=== PATIENT | male | born 1940 | race Caucasian/White ===

== ENCOUNTER 2017-08-16 20:45 | Inpatient (IN) | payer MEDICARE, BC ==
[2017-08-16] MEDS ORDERED: Carvedilol 6.25 MG Tab PO ONE (21:36)
[2017-08-16] MEDS ORDERED: cloNIDine 0.1 MG Tab PO ONE (21:36)
[2017-08-16] MEDS ORDERED: Carvedilol 3.125 MG Tab PO ONE (21:37)
[2017-08-16] MEDS ORDERED: LORazepam 1 MG Tab PO ONE (21:38)
[2017-08-16 22:05] LABS: CHLORIDE,CL 103 mmol/L (98-107); SODIUM,NA 140 mmol/L (136-145)
--- NOTE | 2017-08-16 23:30 | EDM.PDOC ---
ED HPI GENERAL MEDICAL PROBLEM - General Chief Complaint: General Stated Complaint: CP Time Seen by Provider: 08/16/17 21:18 Source of Information: Reports: Family, Other ([facility] staff) History Limitations: Reports: Altered Mental Status - History of Present Illness INITIAL COMMENTS - FREE TEXT/NARRATIVE: [facility] patient transferred to our ER by EMS for complaint of chest pain. Pain resolved by the time he arrived to ER. Noted to have low grade temp upon arrival. Patient had been complaining of discomfort around sternum. Modalities of treatment tried by [facility] prior to transfer included Nitrox3, Tylenol, and an antacid. EMS thinks that they also gave ASA. While in ambulance , EMS administered Nitro spray. Patient has dementia and overall is unreliable for history. also in ER. He only complains of his nose hurting, this is chronic according to his . She says that his physician feels it is due to neuropathy. She has not noticed any other acute changes with her . - Related Data Allergies Allergy/AdvReac Type Severity Reaction Status Date / Time Pzdplpb-Dvh-Dwh Reductase Allergy Muscle Verified 08/16/17 21:10 Inhibitor Aches Home Meds: Home Meds Benazepril [Lotensin] 20 mg PO BID 06/11/14 [History] Fish Oil/DHA/EPA [Fish Oil 1,200 MG] 1 tab PO DAILY 06/11/14 [History] Ibuprofen 200 mg PO DAILY PRN 06/11/14 [History] LORazepam [Ativan] 0.5 mg PO Q8HR PRN 06/11/14 [History] LORazepam [Ativan] 1 mg PO TID 06/11/14 [History] Memantine HCl [Namenda] 10 mg PO BID 06/11/14 [History] Multivitamin with Minerals [Multivitamins with Minerals] 2 tab PO BID 06/11/14 [ History] Omeprazole [Prilosec] 20 mg PO DAILY 06/11/14 [History] Sennosides/Docusate Sodium [Senna-S] 1 tab PO BID 06/11/14 [History] amLODIPine [Norvasc] 10 mg PO DAILY 06/11/14 [History] cloNIDine [Catapres] 0.3 mg PO BID 06/11/14 [History] lamoTRIgine [Lamictal] 250 mg PO BID 06/11/14 [History] metFORMIN [Glucophage] 500 mg PO BID 06/11/14 [History] traMADol [Ultram ER] 100 mg PO DAILY PRN 06/11/14 [History] ARIPiprazole [Abilify] 2 mg PO DAILY 09/25/16 [History] Acetaminophen 650 mg PO Q4HR PRN 09/25/16 [History] Aspirin [Silver Chewable Aspirin] 81 mg PO DAILY 09/25/16 [History] Bisacodyl [Dulcolax] 10 mg PO DAILY PRN 09/25/16 [History] Bisacodyl [Dulcolax] 10 mg RECTAL DAILY PRN 09/25/16 [History] Carvedilol 6.25 mg PO BID 09/25/16 [History] Cholecalciferol (Vitamin D3) [Vitamin D3] 5,000 unit PO DAILY 09/25/16 [History] Docusate Sodium [Colace] 100 mg PO BID 09/25/16 [History] Donepezil HCl 20 mg PO BEDTIME 09/25/16 [History] Flaxseed Oil 1,000 mg PO DAILY 09/25/16 [History] Fluticasone Propionate [Flonase] 2 spray NASBOTH BID@1000,1600 09/25/16 [History ] Gabapentin [Neurontin] 600 mg PO TID 09/25/16 [History] Ibuprofen 200 mg PO DAILY 09/25/16 [History] Ibuprofen/Diphenhydramine Cit [Advil Pm Caplet] 2 tab PO BEDTIME 09/25/16 [ History] Ipratropium [place] 2 spray NASBOTH TID 09/25/16 [History] Levothyroxine Sodium [Synthroid] 25 mcg PO DAILY 09/25/16 [History] Loratadine [Claritin] 10 mg PO DAILY 09/25/16 [History] Methyl Salicylate/Menthol [Icy Hot [place]] 1 applic TP QID PRN 09/25/16 [History] Methyl Salicylate/Menthol [Salonpas Patch] 1 patch TD ASDIRECTED 09/25/16 [ History] Mirabegron [Myrbetriq] 25 mg PO DAILY 09/25/16 [History] Non-Formulary Medication [NF Drug] 1 applic TP BEDTIME 09/25/16 [History] Sertraline [Zoloft] 100 mg PO DAILY 09/25/16 [History] Triamcinolone Acetonide [Triamcinolone Acetonide 0.1% Crm] 1 applic TOP BID PRN 09/25/16 [History] Triamcinolone Acetonide [Triamcinolone Acetonide 0.1% Crm] 1 applic TOP DAILY PRN 09/25/16 [History] Ubidecarenone [Coenzyme Q10] 200 mg PO DAILY 09/25/16 [History] Vitamin E Mixed [Vitamin E] 400 unit PO DAILY 09/25/16 [History] traMADol HCl [Tramadol HCl] 100 mg PO BID 09/25/16 [History] Albuterol/Ipratropium [DuoNeb 3.0-0.5 MG/3 ML] 3 ml NEB Q6HRRT neb 09/27/16 [Rx ] Azithromycin [Zithromax] 500 mg IV Q24H vial 09/27/16 [Rx] Benzonatate [Tessalon Perles] 100 mg PO QID PRN #0 cap 09/27/16 [Rx] Furosemide [Lasix] 40 mg IVPUSH Q8H vial 09/27/16 [Rx] Potassium Chloride [Klor-Con M20] 20 meq PO TID tab.er 09/27/16 [Rx] Sodium Chloride 0.9% [Normal Saline] 30 ml IV ASDIRECTED #0 bag 09/27/16 [Rx] Sodium Chloride 0.9% [Normal Saline] 30 ml IV Q24H #0 bag 09/27/16 [Rx] Sodium Chloride 0.9% [Normal Saline] 30 ml IV Q24H #0 bag 09/27/16 [Rx] Sodium Chloride 0.9% [Saline Flush] 10 ml FLUSH ASDIRECTED PRN #0 syringe [Rx] cefTRIAXone [Rocephin] 1 gm IV Q24H vial 09/27/16 [Rx] Past Medical History Cardiovascular History: Reports: CAD, High Cholesterol, Hypertension Respiratory History: Reports: Other (See Below) Genitourinary History: Reports: BPH Musculoskeletal History: Reports: Gout, Neck Pain, Chronic, Osteoarthritis, Other (See Below) Other Musculoskeletal History: spinal stenosis Neurological History: Reports: Alzheimers Disease Other Neuro History: Dementia Psychiatric History: Reports: Addiction, Alzheimers Disease, Anxiety, Depression 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 Endocrine/Metabolic History: Reports: Diabetes, Type II, Hypothyroidism, Obesity /BMI 30+ Oncologic (Cancer) History: Reports: Basal Cell Carcinoma Dermatologic History: Reports: Other (See Below) Other Dermatologic History: Rosacea - History Comment History Comment: Insomnia, atypical facial pain Social & Family History - Tobacco Use Smoking Status *Q: Former Smoker Years of Tobacco use: 4 Used Tobacco, but Quit: Yes Month Tobacco Last Used: Quit many years ago Second Hand Smoke Exposure: No - Caffeine Use Caffeine Use: Reports: Coffee, Soda - Alcohol Use Days Per Week of Alcohol Use: 0 Number of Drinks Per Day: 0 Total Drinks Per Week: 0 - Recreational Drug Use Recreational Drug Use: No Drug Use in Last 12 Months: No ED ROS GENERAL - Review of Systems Review Of Systems: Unable To Obtain (unable to perform reliably. See HPI.) ED EXAM, GENERAL - Physical Exam Exam: See Below Exam Limited By: No Limitations General Appearance: Alert, No Apparent Distress, Obese, Other (very chatty with staff, making jokes) Eye Exam: Bilateral Eye: EOMI, PERRL Ears: Normal External Exam, Normal Canal, Hearing Grossly Normal, Normal TMs Nose: Normal Inspection, Normal Mucosa, No Blood Throat/Mouth: Normal Inspection, Normal Lips, Normal Teeth, Normal Gums, Normal Oropharynx, Normal Voice, No Airway Compromise Head: Atraumatic, Normocephalic Neck: Normal Inspection, Supple, Non-Tender, Full Range of Motion. No: Carotid Bruit, Lymphadenopathy (L), Lymphadenopathy (R) Respiratory/Chest: No Respiratory Distress, Lungs Clear, Normal Breath Sounds, No Accessory Muscle Use, Chest Non-Tender Cardiovascular: Normal Peripheral Pulses, Regular Rate, Rhythm, No Murmur Peripheral Pulses: 2+: Radial (L), Radial (R), Dorsalis Pedis (L), Dorsalis Pedis (R) GI/Abdominal: Normal Bowel Sounds, Soft, Non-Tender, No Distention (Male) Exam: Deferred Rectal (Males) Exam: Deferred Back Exam: Normal Inspection. No: CVA Tenderness (L), CVA Tenderness (R), Muscle Spasm, Paraspinal Tenderness, Vertebral Tenderness Extremities: Non-Tender, Normal Capillary Refill, Pedal Edema (bilateral 2+ edema). No: Joint Swelling, [facility]elyn's Sign, Leg Pain, Increased Warmth Neurological: Alert, Normal Reflexes, No Motor/Sensory Deficits, Confused (at baseline per ) Psychiatric: Normal Affect, Normal Mood Skin Exam: Warm, Dry, Intact, Normal Color, No Rash Course - Vital Signs Last Recorded V/S: Last Vital Signs Temp 38.6 C H 08/16/17 23:30 Pulse 85 08/16/17 23:30 Resp 20 08/16/17 23:30 BP 179/59 H 08/16/17 23:30 Pulse Ox 97 08/16/17 23:30 - Orders/Labs/Meds Orders: Active Orders 24 hr Category Date Time Status Cardiac Monitoring [RC] . DIRECTED Care 08/16/17 21:27 Active Oxygen Therapy Adult [Oxygen Therapy, ED] [RC] Care 08/16/17 21:28 Active ASDIRECTED CXR [Chest 1V Frontal] [CR] Stat Exams 08/16/17 21:11 Taken Labs: Laboratory Tests 08/16/17 08/16/17 08/16/17 Range/Units 21:15 21:15 21:15 WBC 18.7 H (4.0-10.2) K/uL RBC 4.42 (4.33-5.41) M/uL Hgb 12.5 L D (13.1-16.8) g/dL Hct 39.5 (39.0-49.0) % MCV 89.4 (84.0-98.0) fL MCH 28.3 (28.2-33.3) pg MCHC 31.6 L (31.7-36.0) g/dL RDW 15.4 H (11.2-14.1) % Plt Count 206 D (150-350) K/uL Neut % (Auto) 82.1 H (45.0-80.0) % Lymph % (Auto) 8.5 L (10.0-50.0) % Craig % (Auto) 7.4 (2.0-14.0) % Eos % (Auto) 1.8 (0.0-5.0) % Baso % (Auto) 0.2 (0.0-2.0) % Neut # (Auto) 15.33 H (1.40-7.00) K/uL Lymph # (Auto) 1.59 (0.50-3.50) K/uL Craig # (Auto) 1.39 H (0.00-1.00) K/uL Eos # (Auto) 0.33 (0.00-0.50) K/uL Baso # (Auto) 0.04 (0.00-0.20) K/uL D-Dimer, Quantitative 212 (0-400) ng/mL Sodium 140 (136-145) mmol/L Potassium 4.1 (3.5-5.1) mmol/L Chloride 103 (98-107) mmol/L Carbon Dioxide 26.3 (21.0-32.0) mmol/L BUN 21 H (7-18) mg/dL Creatinine 1.05 (0.51-1.17) mg/dL Est Cr Clr Drug Dosing TNP Estimated GFR (MDRD) > 60 mL/min Glucose 118 H (74-106) mg/dL Calcium 9.3 (8.5-10.1) mg/dL Total Bilirubin 0.3 (0.2-1.0) mg/dL AST 23 (15-37) U/L ALT 23 (12-78) U/L Alkaline Phosphatase 144 H (46-116) IU/L Creatine Kinase 58 (26-308) U/L Creatine Kinase Index 3.6 H (0.0-2.5) % CK-MB (CK-2) 2.10 (0.00-3.60) ng/mL Troponin I 0.003 (0.000-0.056) ng/mL Total Protein 7.0 (6.4-8.2) g/dL Albumin 3.7 (3.4-5.0) g/dL Meds: Medications Discontinued Medications Generic Name Dose Route Start Last Admin Trade Name Karsonq PRN Reason Stop Dose Admin Carvedilol 6.25 mg 08/16/17 21:36 08/16/17 21:57 Coreg PO 08/16/17 21:37 6.25 mg ONETIME ONE Administration Carvedilol 3.125 mg 08/16/17 21:37 08/16/17 21:58 Coreg PO 08/16/17 21:38 3.125 mg ONETIME ONE Administration Clonidine HCl 0.2 mg 08/16/17 21:36 08/16/17 21:57 Catapres PO 08/16/17 21:37 0.2 mg ONETIME ONE Administration Lorazepam 1 mg 08/16/17 21:38 08/16/17 21:57 Ativan PO 08/16/17 21:39 1 mg ONETIME ONE Administration - Radiology Interpretation Free Text/Narrative:: Xray of chest compared to previous films on file. No obvious acute changes noted. No definite consolidations or effusions noted. - Re-Assessments/Exams Free Text/Narrative Re-Assessment/Exam: 08/17/17 00:05 Patient remained free of chest pain throughout entire ER stay. No complaints. Would frequently say "owe" but was referring still to his nose area. Again, says this is normal for him. Mild elevation of temp noted upon arrival. This increased a bit when checked again. EMS crew obtained 12 lead EKG which showed normal sinus rhythm and no acute ST changes. BP elevated prior to coming to ER, continued to be elevated once here. Was noted that he had not received his usual 8pm BP meds. These were ordered and given. BP began to improve shortly thereafter. Troponin, Ddimer, CKMB unremarkable. Chest pain is of uncertain etiology. Given his low grade temp he may be having some aches from an oncoming illness. Does not appear cardiac in nature at this time. No obvious pneumonia at this time but given fever, chest discomfort, and white count, will begin antibiotics to cover for possible infection. Blood cultures drawn. Admitted for observation and serial cardiac enzyme checks. Anticipate patient will likely be discharged back to [facility] within 24-48 hours if enzymes are negative and he continues to do well. Departure - Departure Time of Disposition: 23:00 Disposition: Refer to Observation Condition: Good Clinical Impression: Chest pain of uncertain etiology Elevated WBC count Qualifiers: Leukocytosis type: unspecified Qualified Code(s): D72.829 - Elevated white blood cell count, unspecified Hypertension Qualifiers: Hypertension type: essential hypertension Qualified Code(s): I10 - Essential ( primary) hypertension - Discharge Information - Problem List & Annotations (1) Chest pain of uncertain etiology SNOMED Code(s): 47281102 Code(s): R07.89 - OTHER CHEST PAIN Status: Acute Priority: High Current Visit: Yes Onset Date: 08/17/17 Annotation/Comment:: See HPI. Currently pain-free. Planning on serial cardiac enzymes while patient is observed. (2) Hypertension SNOMED Code(s): 79644962 Code(s): I10 - ESSENTIAL (PRIMARY) HYPERTENSION Status: Chronic Priority : High Current Visit: Yes Annotation/Comment:: Elevated but improved since presenting to ER. Qualifiers: Hypertension type: essential hypertension Qualified Code(s): I10 - Essential (primary) hypertension (3) Elevated WBC count SNOMED Code(s): 255907710 Code(s): D72.829 - ELEVATED WHITE BLOOD CELL COUNT, UNSPECIFIED Status: Acute Priority: High Current Visit: Yes Annotation/Comment:: Uncertain source. Possibly due to early viral infection. No significant acute changes on chest film. Patient incontinent of urine, no sample for UA so far. May need to cath patient for sample. Blood cultures pending. Will cover with Zithromax and Rocephin. Qualifiers: Leukocytosis type: unspecified Qualified Code(s): D72.829 - Elevated white blood cell count, unspecified (4) Neuropathy SNOMED Code(s): 786461908 Code(s): G62.9 - POLYNEUROPATHY, UNSPECIFIED Status: Chronic Priority: Low Current Visit: Yes Annotation/Comment:: Atypical chronic facial pain. (5) Osteoarthritis SNOMED Code(s): 789940753 Code(s): M19.90 - UNSPECIFIED OSTEOARTHRITIS, UNSPECIFIED SITE Status: Chronic Priority: Low Current Visit: No (6) Dementia SNOMED Code(s): 64860056 Code(s): F03.90 - UNSPECIFIED DEMENTIA WITHOUT BEHAVIORAL DISTURBANCE Status: Chronic Priority: Medium Current Visit: No Annotation/Comment:: Stable by history. Mixed vascular and Alzheimers Qualifiers: Dementia type: Alzheimer's disease Alzheimer's disease onset: late-onset Dementia behavioral disturbance: without behavioral disturbance Qualified Code (s): G30.1 - Alzheimer's disease with late onset; F02.80 - Dementia in other diseases classified elsewhere without behavioral disturbance (7) Diabetes mellitus SNOMED Code(s): 44554275 Code(s): E11.9 - TYPE 2 DIABETES MELLITUS WITHOUT COMPLICATIONS Status: Chronic Priority: Medium Current Visit: No Annotation/Comment:: Accu- Cheks under good control. Continue to observe closely Qualifiers: Diabetes mellitus type: type 2 Diabetes mellitus complication status: without complication Diabetes mellitus dedicated intermodal truck driver insulin use: without usp use Qualified Code(s): E11.9 - Type 2 diabetes mellitus without complications (8) Anxiety SNOMED Code(s): 39383056 Code(s): F41.9 - ANXIETY DISORDER, UNSPECIFIED Status: Chronic Priority: Low Current Visit: No (9) CAD (coronary artery disease) SNOMED Code(s): 14718210 Code(s): I25.10 - ATHSCL HEART DISEASE OF [place] CORONARY ARTERY W/O ANG PCTRS Status: Chronic Priority: Medium Current Visit: Yes Qualifiers: Coronary Disease-Associated Artery/Lesion type: [place] artery [place] vs. transplanted heart: [place] heart Associated angina: without angina Qualified Code(s): I25.10 - Atherosclerotic heart disease of [place] coronary artery without angina pectoris - Problem List Review Problem List Initiated/Reviewed/Updated: Yes - My Orders Last 24 Hours: My Active Orders 08/16/17 21:11 CXR [Chest 1V Frontal] [CR] Stat 08/16/17 21:27 Cardiac Monitoring [RC] . DIRECTED 08/16/17 21:28 Oxygen Therapy Adult [Oxygen Therapy, ED] [RC] ASDIRECTED - Assessment/Plan Admission H&P: Please use this note as an admission H&P Last 24 Hours: My Active Orders 08/16/17 21:11 CXR [Chest 1V Frontal] [CR] Stat 08/16/17 21:27 Cardiac Monitoring [RC] . DIRECTED 08/16/17 21:28 Oxygen Therapy Adult [Oxygen Therapy, ED] [RC] ASDIRECTED Assessment:: As above. Plan: Admit for observation. Patient stable for generalized supervision.
[2017-08-17] MEDS ORDERED: Azithromycin 500 MG in Sodium Chloride 0.9% 250 ML IV ONE ×2
[2017-08-17] MEDS ORDERED: cefTRIAXone 1 GM in Sodium Chloride 0.9% 100 ML IV ONE (00:01)
[2017-08-17] MEDS ORDERED: Nitroglycerin 0.4 MG Tab.SL SL PRN (01:29)
[2017-08-17] MEDS ORDERED: Bisacodyl 5 MG Tab PO PRN (01:57)
[2017-08-17] MEDS ORDERED: MENTHOL TP PRN (01:57)
[2017-08-17] MEDS ORDERED: Triamcinolone Acetonide 0.1% Crm 15 GM Tube TOP PRN ×2 (01:57)
[2017-08-17] MEDS ORDERED: CAPSAICIN TP PRN (01:57)
[2017-08-17] MEDS ORDERED: TRAMADOL 100 MG PO PRN (01:57)
[2017-08-17] MEDS ORDERED: Acetaminophen 325 MG Tab PO PRN (01:57)
[2017-08-17] MEDS ORDERED: Albuterol 0.083% 2.5 MG/3 ML Neb Soln NEB PRN (01:57)
[2017-08-17] MEDS ORDERED: Carvedilol 3.125 MG Tab PO SCH (07:30)
[2017-08-17] MEDS ORDERED: Furosemide 40 MG Tab PO SCH (08:00)
[2017-08-17] MEDS ORDERED: Docusate Sodium 100 MG Cap PO SCH (08:00)
[2017-08-17] MEDS ORDERED: traMADol 50 MG Tab PO SCH ×3 (08:00→12:00)
[2017-08-17] MEDS ORDERED: Carvedilol 6.25 MG Tab PO SCH (08:00)
[2017-08-17] MEDS: lamoTRIgine 100 MG Tab PO SCH ×2 (08:10→17:21)
[2017-08-17] MEDS: LORazepam 0.5 MG Tab PO SCH (08:11)
[2017-08-17] MEDS: Clopidogrel 75 MG Tab PO SCH (08:13)
[2017-08-17] MEDS: Pantoprazole 40 MG Tab.CR PO SCH (08:15)
[2017-08-17] MEDS: Gabapentin 300 MG Cap PO SCH ×3 (08:15→17:23)
[2017-08-17] MEDS: Memantine 10 MG Tab PO SCH ×2 (08:15→17:27)
[2017-08-17] MEDS: Aspirin 81 MG Tab.Chew PO SCH (08:16)
[2017-08-17] MEDS: amLODIPine 5 MG Tab PO SCH (08:16)
[2017-08-17] MEDS: metFORMIN 500 MG Tab PO SCH ×2 (08:16→17:26)
[2017-08-17] MEDS: Loratadine 10 MG Tab PO SCH (08:17)
[2017-08-17] MEDS: Sertraline 50 MG Tab PO SCH (08:18)
[2017-08-17] MEDS: cloNIDine 0.1 MG Tab PO SCH ×3 (08:19→17:24)
[2017-08-17] MEDS: Levothyroxine 25 MCG Tab PO SCH (08:20)
--- NOTE | 2017-08-17 09:52 | PCM.PN ---
- General Info Date of Service: 08/17/17 Admission Dx/Problem (Free Text): 1. Chest pain 2. Leukocytosis Functional Status: Reports: Pain Controlled, Tolerating Diet, Urinating, Incentive Spirometry. Denies: Ambulating, New Symptoms Pain Score: 0 - Review of Systems General: Reports: Weakness (Stable generalized). Denies: Fever (No fever this morning with maximum temperature of 37.3 earlier this morning) HEENT: Denies: Ear Pain, Eye Pain, Sinus Congestion, Visual Changes Pulmonary: Reports: No Symptoms. Denies: Shortness of Breath, Pleuritic Chest Pain, Cough, Hemoptysis, Wheezing Cardiovascular: Reports: Edema (Stable dependent). Denies: Chest Pain, Palpitations, Dyspnea on Exertion, Orthopnea, Lightheadedness Gastrointestinal: Denies: Abdominal Pain, Constipation, Decreased Appetite, Diarrhea, Difficulty Swallowing, Flatus, Hematochezia, Melena, Nausea, Vomiting Genitourinary: Reports: No Symptoms Musculoskeletal: Reports: No Symptoms Skin: Reports: No Symptoms. Denies: Diaphoresis, Bruising Neurological: Reports: Confusion (Stable chronic), Weakness (Stable chronic) Psychiatric: Reports: Confusion (Stable chronic), Depression (Stable chronic), Anxiety (Stable chronic). Denies: Agitation, Hallucinations - Patient Data Vitals - Most Recent: Last Vital Signs Temp 36.6 C 08/17/17 07:59 Pulse 72 08/17/17 08:14 Resp 20 08/17/17 04:00 BP 131/54 L 08/17/17 08:19 Pulse Ox 99 08/17/17 07:59 Weight - Most Recent: 136.078 kg I&O - Last 24 Hours: Intake & Output 08/16/17 08/17/17 08/17/17 22:59 06:59 14:59 Intake Total 150 360 Balance 150 360 Imaging Impressions - Last 24 Hours: Chest x-ray, portable, from 08/16 showed evidence of moderate COPD changes, cardiomegaly, and mild pulmonary hypertension versus centralized CHF with no specific pulmonary infiltrates Heart monitor shows normal sinus rhythm with heart rate in the 90s with no ectopy or arrhythmia Lab Results Last 24 Hours: Laboratory Results - last 24 hr 08/17/17 08/17/17 08/17/17 Range/Units 06:10 06:10 06:10 WBC 19.3 H (4.0-10.2) K/uL RBC 3.83 L (4.33-5.41) M/uL Hgb 11.0 L D (13.1-16.8) g/dL Hct 34.5 L (39.0-49.0) % MCV 90.1 (84.0-98.0) fL MCH 28.7 (28.2-33.3) pg MCHC 31.9 (31.7-36.0) g/dL RDW 15.6 H (11.2-14.1) % Plt Count 196 (150-350) K/uL Neut % (Auto) 76.1 (45.0-80.0) % Lymph % (Auto) 10.2 (10.0-50.0) % [place] % (Auto) 13.1 (2.0-14.0) % Eos % (Auto) 0.3 (0.0-5.0) % Baso % (Auto) 0.3 (0.0-2.0) % Neut # (Auto) 14.70 H (1.40-7.00) K/uL Lymph # (Auto) 1.98 (0.50-3.50) K/uL [place] # (Auto) 2.53 H (0.00-1.00) K/uL Eos # (Auto) 0.05 (0.00-0.50) K/uL Baso # (Auto) 0.06 (0.00-0.20) K/uL Lactic Acid 1.6 (0.4-2.0) mmol/L Creatine Kinase 31 (26-308) U/L Creatine Kinase Index 3.2 H (0.0-2.5) % CK-MB (CK-2) 1.00 (0.00-3.60) ng/mL Troponin I 0.013 (0.000-0.056) ng/mL Laboratory Tests 08/16/17 08/16/17 08/16/17 Range/Units 21:15 21:15 21:15 WBC 18.7 H (4.0-10.2) K/uL RBC 4.42 (4.33-5.41) M/uL Hgb 12.5 L D (13.1-16.8) g/dL Hct 39.5 (39.0-49.0) % MCV 89.4 (84.0-98.0) fL MCH 28.3 (28.2-33.3) pg MCHC 31.6 L (31.7-36.0) g/dL RDW 15.4 H (11.2-14.1) % Plt Count 206 D (150-350) K/uL Neut % (Auto) 82.1 H (45.0-80.0) % Lymph % (Auto) 8.5 L (10.0-50.0) % [place] % (Auto) 7.4 (2.0-14.0) % Eos % (Auto) 1.8 (0.0-5.0) % Baso % (Auto) 0.2 (0.0-2.0) % Neut # (Auto) 15.33 H (1.40-7.00) K/uL Lymph # (Auto) 1.59 (0.50-3.50) K/uL [place] # (Auto) 1.39 H (0.00-1.00) K/uL Eos # (Auto) 0.33 (0.00-0.50) K/uL Baso # (Auto) 0.04 (0.00-0.20) K/uL D-Dimer, Quantitative 212 (0-400) ng/mL Sodium 140 (136-145) mmol/L Potassium 4.1 (3.5-5.1) mmol/L Chloride 103 (98-107) mmol/L Carbon Dioxide 26.3 (21.0-32.0) mmol/L BUN 21 H (7-18) mg/dL Creatinine 1.05 (0.51-1.17) mg/dL Est Cr Clr Drug Dosing TNP Estimated GFR (MDRD) > 60 mL/min Glucose 118 H (74-106) mg/dL Lactic Acid (0.4-2.0) mmol/L Calcium 9.3 (8.5-10.1) mg/dL Total Bilirubin 0.3 (0.2-1.0) mg/dL AST 23 (15-37) U/L ALT 23 (12-78) U/L Alkaline Phosphatase 144 H (46-116) IU/L Creatine Kinase 58 (26-308) U/L Creatine Kinase Index 3.6 H (0.0-2.5) % CK-MB (CK-2) 2.10 (0.00-3.60) ng/mL Troponin I 0.003 (0.000-0.056) ng/mL Total Protein 7.0 (6.4-8.2) g/dL Albumin 3.7 (3.4-5.0) g/dL 08/17/17 08/17/17 08/17/17 Range/Units 06:10 06:10 06:10 WBC 19.3 H (4.0-10.2) K/uL RBC 3.83 L (4.33-5.41) M/uL Hgb 11.0 L D (13.1-16.8) g/dL Hct 34.5 L (39.0-49.0) % MCV 90.1 (84.0-98.0) fL MCH 28.7 (28.2-33.3) pg MCHC 31.9 (31.7-36.0) g/dL RDW 15.6 H (11.2-14.1) % Plt Count 196 (150-350) K/uL Neut % (Auto) 76.1 (45.0-80.0) % Lymph % (Auto) 10.2 (10.0-50.0) % [place] % (Auto) 13.1 (2.0-14.0) % Eos % (Auto) 0.3 (0.0-5.0) % Baso % (Auto) 0.3 (0.0-2.0) % Neut # (Auto) 14.70 H (1.40-7.00) K/uL Lymph # (Auto) 1.98 (0.50-3.50) K/uL [place] # (Auto) 2.53 H (0.00-1.00) K/uL Eos # (Auto) 0.05 (0.00-0.50) K/uL Baso # (Auto) 0.06 (0.00-0.20) K/uL D-Dimer, Quantitative (0-400) ng/mL Sodium (136-145) mmol/L Potassium (3.5-5.1) mmol/L Chloride (98-107) mmol/L Carbon Dioxide (21.0-32.0) mmol/L BUN (7-18) mg/dL Creatinine (0.51-1.17) mg/dL Est Cr Clr Drug Dosing Estimated GFR (MDRD) mL/min Glucose (74-106) mg/dL Lactic Acid 1.6 (0.4-2.0) mmol/L Calcium (8.5-10.1) mg/dL Total Bilirubin (0.2-1.0) mg/dL AST (15-37) U/L ALT (12-78) U/L Alkaline Phosphatase (46-116) IU/L Creatine Kinase 31 (26-308) U/L Creatine Kinase Index 3.2 H (0.0-2.5) % CK-MB (CK-2) 1.00 (0.00-3.60) ng/mL Troponin I 0.013 (0.000-0.056) ng/mL Total Protein (6.4-8.2) g/dL Albumin (3.4-5.0) g/dL Blood cultures 2 are pending Eusebio Results Last 24 Hours: None Med Orders - Current: Current Medications Acetaminophen (Tylenol) 650 mg PO Q6H PRN PRN Reason: Fever/Pain Albuterol (Proventil Neb Soln) 2.5 mg NEB Q4H PRN PRN Reason: Cough Amlodipine Besylate (Norvasc) 10 mg PO DAILY [facility] Last Admin: 08/17/17 08:16 Dose: 10 mg Aspirin (Aspirin) 81 mg PO DAILY [facility] Last Admin: 08/17/17 08:16 Dose: 81 mg Atorvastatin Calcium (Lipitor) 40 mg PO BEDTIME [facility] Bisacodyl (Dulcolax) 10 mg PO DAILY PRN PRN Reason: Constipation Carvedilol (Coreg) 9.375 mg PO BIDMEALS [facility] Last Admin: 08/17/17 08:14 Dose: 9.375 mg Clonidine HCl (Catapres) 0.2 mg PO TID [facility] Last Admin: 08/17/17 08:19 Dose: 0.2 mg Clopidogrel Bisulfate (Plavix) 75 mg PO DAILY [facility] Last Admin: 08/17/17 08:13 Dose: 75 mg Docusate Sodium (Colace) 100 mg PO BID [facility] Last Admin: 08/17/17 08:19 Dose: 100 mg Donepezil HCl (Aricept) 20 mg PO BEDTIME [facility] Fluticasone Propionate (Flonase) 0 gm NASBOTH BID@1000,1600 [facility] Furosemide (Lasix) 40 mg PO DAILY [facility] Last Admin: 08/17/17 08:19 Dose: 40 mg Gabapentin (Neurontin) 600 mg PO TID [facility] Last Admin: 08/17/17 08:15 Dose: 600 mg Lamotrigine (Lamotrigine) 250 mg PO BID [facility] Last Admin: 08/17/17 08:10 Dose: 250 mg Levothyroxine Sodium (Levothyroxine) 25 mcg PO ACBREAKFAST [facility] Last Admin: 08/17/17 08:20 Dose: 25 mcg Loratadine (Claritin) 10 mg PO DAILY [facility] Last Admin: 08/17/17 08:17 Dose: 10 mg Lorazepam (Ativan) 0.5 mg PO Q4H PRN PRN Reason: Anxiety Lorazepam (Ativan) 0.5 mg PO DAILY [facility] Last Admin: 08/17/17 08:11 Dose: 0.5 mg Lorazepam (Ativan) 1 mg PO BEDTIME [facility] Melatonin (Melatonin) 6 mg PO BEDTIME [facility] Memantine (Namenda) 10 mg PO BID [facility] Last Admin: 08/17/17 08:15 Dose: 10 mg Metformin HCl (Glucophage) 500 mg PO BIDMEALS [facility] Last Admin: 08/17/17 08:16 Dose: 500 mg Nitroglycerin (Nitrostat) 0.4 mg SL Q5M PRN PRN Reason: Chest Pain Non-Formulary Medication (Capsaicin/Menthol [Salonpas Gel-Patch Hot]) 1 each TP BID PRN PRN Reason: Pain Non-Formulary Medication (Tramadol [Ultram Er]) 100 mg PO DAILY PRN PRN Reason: Pain (moderate 4-6) Pantoprazole Sodium (Protonix) 40 mg PO DAILY@0700 [facility] Last Admin: 08/17/17 08:15 Dose: 40 mg Polyethylene Glycol (Miralax) 17 gm PO BEDTIME [facility] Senna/Docusate Sodium (Senna Plus) 2 tab PO BID [facility] Last Admin: 08/17/17 08:10 Dose: 2 tab Sertraline HCl (Zoloft) 200 mg PO DAILY [facility] Last Admin: 08/17/17 08:18 Dose: 200 mg Tramadol HCl (Ultram) 100 mg PO BID [facility] Last Admin: 08/17/17 08:12 Dose: 100 mg Tramadol HCl (Ultram) 50 mg PO DAILY@1200 [facility] Triamcinolone Acetonide (Triamcinolone Acetonide 0.1% Crm) 0 gm TOP BID PRN PRN Reason: itching Triamcinolone Acetonide (Triamcinolone Acetonide 0.1% Crm) 0 gm TOP DAILY PRN PRN Reason: Itching Discontinued Medications Carvedilol (Coreg) 6.25 mg PO ONETIME ONE Stop: 08/16/17 21:37 Last Admin: 08/16/17 21:57 Dose: 6.25 mg Carvedilol (Coreg) 3.125 mg PO ONETIME ONE Stop: 08/16/17 21:38 Last Admin: 08/16/17 21:58 Dose: 3.125 mg Carvedilol (Coreg) 6.25 mg PO BID [facility] Clonidine HCl (Catapres) 0.2 mg PO ONETIME ONE Stop: 08/16/17 21:37 Last Admin: 08/16/17 21:57 Dose: 0.2 mg Azithromycin 500 mg/ Sodium (Chloride) 250 mls @ 250 mls/hr IV ONETIME ONE Stop: 08/17/17 00:59 Last Admin: 08/17/17 01:19 Dose: 250 mls/hr Ceftriaxone Sodium 1 gm/ (Sodium Chloride) 100 mls @ 200 mls/hr IV ONETIME ONE Stop: 08/17/17 00:30 Last Admin: 08/17/17 00:47 Dose: 200 mls/hr Lorazepam (Ativan) 1 mg PO ONETIME ONE Stop: 08/16/17 21:39 Last Admin: 08/16/17 21:57 Dose: 1 mg Tramadol HCl (Ultram) 50 mg PO DAILY@1130 [facility] - Exam Quality Assessment: Supplemental Oxygen, DVT Prophylaxis. No: Central Line/PICC , Urine Catheter, Skin Breakdown, Restraints General: Alert, Cooperative, No Acute Distress. No: Oriented (Stable moderate confusion) HEENT: Pupils Equal, Pupils Reactive, EOMI, Mucous Membr. Moist/[place] Neck: Supple, Trachea Midline, No Thyromegaly, Carotid Bruit (Bilateral carotid bruitsmild). No: Lymphadenopathy Lungs: Rales (Mild bilateral basilar rales). No: Rhonchi, Rub, Wheezing Cardiovascular: Regular Rate, Regular Rhythm, No Murmurs. No: Gallops, Rubs GI/Abdominal Exam: Normal Bowel Sounds, Soft, Non-Tender, No Organomegaly, No Distention, No Abnormal Bruit, No Mass, Pelvis Stable, Other (Obese). No: Guarding (Male) Exam: Deferred Back Exam: Normal Inspection, Full Range of Motion. No: CVA Tenderness (L), CVA Tenderness (R), Muscle Spasm Extremities: Non-Tender, Normal Capillary Refill, Pedal Edema (+1 to +2 bilateral pedal/pretibial edema). No: Madelyn's Sign Peripheral Pulses: 1+: Dorsalis Pedis (L), Dorsalis Pedis (R), 2+: Radial (L), Radial (R) Skin: Warm. No: Ecchymosis Neurological: No New Focal Deficit Psy/Mental Status: Alert, Anxious (Borderline), Depressed (Borderline). No: Agitated, Hallucinations, Withdrawal Symptoms EKG INTERPRETATION EKG Date: 08/17/17 Time: 07:38 Rhythm: NSR Rate (Beats/Min): 77 Yeso: Normal (Left cardiac axis) P-Wave: Enlarged (Moderate diffuse biphasic P waves) QRS: RBBB (QRS interval 0.15 seconds representing a complete right bundle branch block with T-wave inversion in V3, however suspect lead placement error with previous T-wave inversion in lead V1. Stable T-wave inversion in lead 3.) ST-T: Normal QT: Normal WI/PQ Interval: 0.16 seconds Comparison: Change From Previous EKG (As above since last EKG by paramedics on 08/16/17) EKG Interpretation Comments: 1. No acute extreme changes 2. Complete right bundle branch block 3. Left atrial enlargement by EKG - Problem List & Annotations (1) Chest pain of uncertain etiology SNOMED Code(s): 19131446 Code(s): R07.89 - OTHER CHEST PAIN Status: Acute Priority: High Current Visit: Yes Onset Date: 08/17/17 Annotation/Comment:: No chest pain or anginal type symptoms. Continue standard rule out NH orders. Repeat chest x- ray and EKG in the a.m. (2) CAD (coronary artery disease) SNOMED Code(s): 40803697 Code(s): I25.10 - ATHSCL HEART DISEASE OF [place] CORONARY ARTERY W/O ANG PCTRS Status: Chronic Priority: Medium Current Visit: Yes Qualifiers: Coronary Disease-Associated Artery/Lesion type: [place] artery [place] vs. transplanted heart: [place] heart Associated angina: without angina Qualified Code(s): I25.10 - Atherosclerotic heart disease of [place] coronary artery without angina pectoris Annotation/Comment:: No anginal complaints today, however patient is a poor historian. Note NO CODE STATUS and previous history of a non-STEMI. Long-term prognosis poor. Continue workup for acute NH as above. (3) Elevated WBC count SNOMED Code(s): 376154523 Code(s): D72.829 - ELEVATED WHITE BLOOD CELL COUNT, UNSPECIFIED Status: Acute Priority: High Current Visit: Yes Qualifiers: Leukocytosis type: bandemia Qualified Code(s): D72.825 - Bandemia Annotation/Comment:: Uncertain source but possible pneumonia as below. Obtain sputum specimen. Lactic acid normal to this point, however repeat in the a.m.. UA with culture and sensitivity has been ordered, however this will be changed to a catheter UA secondary to his urinary incontinence. Secondary to progressive leukocytosis patient will be changed to acute care. No significant acute changes on chest film on admission, which was reviewed today. Continue Zithromax and Rocephin. (4) CHF (congestive heart failure) SNOMED Code(s): 45847518 Code(s): I50.9 - HEART FAILURE, UNSPECIFIED Status: Chronic Priority: High Current Visit: Yes Onset Date: ~09/26/16 Qualifiers: Congestive heart failure type: unspecified congestive heart failure type Congestive heart failure chronicity: acute on chronic Qualified Code(s): I50.9 - Heart failure, unspecified Annotation/Comment:: Known history of CHF. Note significant persistent dependent edema. IV Lasix therapy. No echocardiogram, etc. secondary to NO CODE STATUS. BNP with next set of blood work (5) COPD (chronic obstructive pulmonary disease) SNOMED Code(s): 99672272 Code(s): J44.9 - CHRONIC OBSTRUCTIVE PULMONARY DISEASE, UNSPECIFIED Status : Chronic Priority: Medium Current Visit: Yes Qualifiers: COPD type: COPD with acute lower respiratory infection Qualified Code(s): J44.0 - Chronic obstructive pulmonary disease with acute lower respiratory infection Annotation/Comment:: Note significant leukocytosis. Suspect possible beginning pneumonia with IV Rocephin and Zithromax already also initiated. Continue nebulizer treatments as before. Blood cultures 2 are pending (6) Anemia SNOMED Code(s): 240721481 Code(s): D64.9 - ANEMIA, UNSPECIFIED Status: Acute Priority: Medium Current Visit: Yes Onset Date: 08/17/17 Qualifiers: Anemia type: unspecified type Qualified Code(s): D64.9 - Anemia, unspecified Annotation/Comment:: Mild anemia today. Order Hemoccults. No evidence of abdominal pain or acute GI bleed. Iron studies, etc. in the a.m. (7) Peptic reflux disease SNOMED Code(s): 61822687 Code(s): K21.9 - GASTRO-ESOPHAGEAL REFLUX DISEASE WITHOUT ESOPHAGITIS Status: Chronic Priority: Medium Current Visit: Yes Annotation/Comment:: Stable by history. Continue current medical therapy (8) Hypertension SNOMED Code(s): 32763003 Code(s): I10 - ESSENTIAL (PRIMARY) HYPERTENSION Status: Chronic Priority : Medium Current Visit: Yes Qualifiers: Hypertension type: essential hypertension Qualified Code(s): I10 - Essential (primary) hypertension Annotation/Comment:: Blood pressures significantly improved from time of admission. Continue to observe closely (9) Hypoalbuminemia SNOMED Code(s): 563615804 Code(s): E88.09 - OTH DISORDERS OF PLASMA-PROTEIN METABOLISM, NEC Status: Acute Priority: Medium Current Visit: Yes Onset Date: ~09/27/16 Annotation/Comment:: No hypoalbuminemia to this point. Continue to observe closely (10) Dementia SNOMED Code(s): 01862943 Code(s): F03.90 - UNSPECIFIED DEMENTIA WITHOUT BEHAVIORAL DISTURBANCE Status: Chronic Priority: Medium Current Visit: Yes Qualifiers: Dementia type: Alzheimer's disease Alzheimer's disease onset: late-onset Dementia behavioral disturbance: without behavioral disturbance Qualified Code (s): G30.1 - Alzheimer's disease with late onset; F02.80 - Dementia in other diseases classified elsewhere without behavioral disturbance Annotation/Comment:: Stable by history. Mixed vascular and Alzheimers (11) Diabetes mellitus SNOMED Code(s): 33693257 Code(s): E11.9 - TYPE 2 DIABETES MELLITUS WITHOUT COMPLICATIONS Status: Chronic Priority: Medium Current Visit: Yes Qualifiers: Diabetes mellitus type: type 2 Diabetes mellitus complication status: without complication Diabetes mellitus mcc insulin use: without mcc use Qualified Code(s): E11.9 - Type 2 diabetes mellitus without complications Annotation/Comment:: Continue to observe closely. Glycosylated hemoglobin in the a.m.. Twice a day Accu-Cheks and sliding scale (12) Hyperlipidemia SNOMED Code(s): 14140619 Code(s): E78.5 - HYPERLIPIDEMIA, UNSPECIFIED Status: Chronic Priority: Medium Current Visit: Yes Qualifiers: Hyperlipidemia type: unspecified Qualified Code(s): E78.5 - Hyperlipidemia , unspecified Annotation/Comment:: Currently under therapy. Consider repeat lipid profile in the a.m. (13) Hypothyroid SNOMED Code(s): 64033808 Code(s): E03.9 - HYPOTHYROIDISM, UNSPECIFIED Status: Chronic Priority: Medium Current Visit: Yes Qualifiers: Hypothyroidism type: acquired Qualified Code(s): E03.9 - Hypothyroidism, unspecified Annotation/Comment:: TSH during this hospitalization (14) Osteoarthritis SNOMED Code(s): 344190252 Code(s): M19.90 - UNSPECIFIED OSTEOARTHRITIS, UNSPECIFIED SITE Status: Chronic Priority: Medium Current Visit: Yes Qualifiers: Osteoarthritis location: multiple joints Osteoarthritis type: primary Qualified Code(s): M15.0 - Primary generalized (osteo)arthritis Annotation/Comment:: Stable by history - Problem List Review Problem List Initiated/Reviewed/Updated: Yes - My Orders Last 24 Hours: My Active Orders 08/17/17 08:04 CULTURE URINE [RM] Routine UA W/MICROSCOPIC [URIN] Routine - Assessment Assessment:: As above - Plan Plan:: As above. Extensive precautions were given to the patient, who is in agreement with the treatment plan. The patient will require about 3-4 days of inpatient/ acute care secondary to multiple health problems as above.
[2017-08-17] MEDS ORDERED: Albuterol 0.083% 2.5 MG/3 ML Neb Soln INH PRN (10:21)
[2017-08-17] MEDS ORDERED: Albuterol/Ipratropium 3.0-0.5 MG/3 ML Neb Soln NEB PRN (10:25)
[2017-08-17] MEDS: Acetaminophen 325 MG Tab PO PRN (10:48)
[2017-08-17] MEDS: LORazepam 0.5 MG Tab PO PRN ×2 (10:48→17:27)
[2017-08-17] MEDS: Fluticasone Propionate Nasal Spray 16 GM Bottle NASBOTH SCH ×2 (10:48→16:20)
[2017-08-17] MEDS: Potassium Chloride 20 MEQ Tab.ER PO SCH ×2 (12:13→17:23)
[2017-08-17] MEDS: Furosemide 40 MG/4 ML VIAL IVPUSH SCH ×2 (12:15→18:26)
[2017-08-17] MEDS: cefTRIAXone 1 GM in Sodium Chloride 0.9% 100 ML IV SCH (12:16)
[2017-08-17] MEDS: Albuterol/Ipratropium 3.0-0.5 MG/3 ML Neb Soln NEB SCH ×2 (14:06→19:05)
[2017-08-17] MEDS: Carvedilol 6.25 MG Tab PO SCH (17:25)
[2017-08-17] MEDS: Lisinopril 10 MG Tab PO SCH (17:26)
[2017-08-17] MEDS: Insuln Aspart Prot/Insulin Aspart 100 Units/ML 3 ML FlexPen SUBCUT SCH (17:29)
[2017-08-17] MEDS: Polyethylene Glycol 3350 Powder 17 GM Packet PO SCH (19:05)
[2017-08-17] MEDS: Donepezil 10 MG Tab PO SCH (19:05)
[2017-08-17] MEDS: atorvaSTATin 40 MG Tab PO SCH (19:05)
[2017-08-17] MEDS: Melatonin 3 MG Tab PO SCH (19:06)
[2017-08-17] MEDS: LORazepam 1 MG Tab PO SCH (19:06)
[2017-08-17] MEDS: Azithromycin 500 MG in Sodium Chloride 0.9% 250 ML IV SCH (23:08)
[2017-08-18] MEDS: cefTRIAXone 1 GM in Sodium Chloride 0.9% 100 ML IV SCH ×2 (00:56→12:08)
[2017-08-18] MEDS: Furosemide 40 MG/4 ML VIAL IVPUSH SCH ×3 (01:47→19:33)
[2017-08-18] MEDS: Albuterol/Ipratropium 3.0-0.5 MG/3 ML Neb Soln NEB SCH ×4 (01:47→19:29)
[2017-08-18] MEDS: Sodium Chloride 0.9% 10 ML Syringe FLUSH PRN ×4 (01:53→23:21)
[2017-08-18] MEDS: lamoTRIgine 100 MG Tab PO SCH ×2 (08:01→17:44)
[2017-08-18] MEDS: Sertraline 50 MG Tab PO SCH (08:02)
[2017-08-18] MEDS: Gabapentin 300 MG Cap PO SCH ×3 (08:03→17:46)
[2017-08-18] MEDS: metFORMIN 500 MG Tab PO SCH ×2 (08:03→17:46)
[2017-08-18] MEDS: Potassium Chloride 20 MEQ Tab.ER PO SCH ×3 (08:03→17:45)
[2017-08-18] MEDS: LORazepam 0.5 MG Tab PO SCH (08:04)
[2017-08-18] MEDS: Clopidogrel 75 MG Tab PO SCH (08:04)
[2017-08-18] MEDS: amLODIPine 5 MG Tab PO SCH (08:04)
[2017-08-18] MEDS: Pantoprazole 40 MG Tab.CR PO SCH (08:05)
[2017-08-18] MEDS: Memantine 10 MG Tab PO SCH ×2 (08:05→17:45)
[2017-08-18] MEDS: Loratadine 10 MG Tab PO SCH (08:06)
[2017-08-18] MEDS: Levothyroxine 25 MCG Tab PO SCH (08:06)
[2017-08-18] MEDS: Aspirin 81 MG Tab.Chew PO SCH (08:06)
[2017-08-18] MEDS: cloNIDine 0.1 MG Tab PO SCH ×3 (08:07→17:44)
[2017-08-18] MEDS: Carvedilol 6.25 MG Tab PO SCH ×2 (08:07→17:47)
[2017-08-18] MEDS: Insuln Aspart Prot/Insulin Aspart 100 Units/ML 3 ML FlexPen SUBCUT SCH ×2 (08:09→17:48)
--- NOTE | 2017-08-18 10:41 | PCM.PN ---
- General Info Date of Service: 08/18/17 Admission Dx/Problem (Free Text): 1. Chest pain 2. Leukocytosis Functional Status: Reports: Pain Controlled, Tolerating Diet, New Symptoms, Incentive Spirometry. Denies: Ambulating (Karen lift) Pain Score: 0 - Review of Systems General: Reports: Fever (Fever this past evening as below), Weakness (Stable chronic), Appetite (Good). Denies: Fatigue, Malaise, Chills, Night Sweats HEENT: Denies: Dysphasia, Ear Pain, Eye Pain, Headaches, Sinus Congestion, Sore Throat, Rhinitis, Visual Changes Pulmonary: Reports: No Symptoms. Denies: Shortness of Breath, Pleuritic Chest Pain, Cough, Sputum, Hemoptysis, Wheezing Cardiovascular: Reports: Edema (Stable dependent). Denies: Chest Pain, Palpitations, Dyspnea on Exertion, Orthopnea, Lightheadedness Gastrointestinal: Reports: Constipation (Only small bowel movement during this hospitalization despite Rocephin therapy). Denies: Abdominal Pain, Decreased Appetite, Diarrhea, Difficulty Swallowing, Flatus, Melena, Nausea, Vomiting Genitourinary: Reports: Incontinence. Denies: Dysuria, Frequency, Burning, Pain , Urgency, Hematuria, Retention, Flank Pain Musculoskeletal: Reports: No Symptoms. Denies: Neck Pain, Shoulder Pain, Arm Pain, Back Pain Skin: Denies: Diaphoresis, Bruising Neurological: Reports: Confusion (Stable moderate to severe), Pre-Existing Deficit (Leg weakness with patient unable to ambulate), Difficulty Walking, Weakness (As above). Denies: Headache, Numbness, Paresthesia, Trouble Speaking Psychiatric: Reports: Confusion. Denies: Depression, Anxiety, Agitation, Hallucinations, Suicidal Ideation - Patient Data Vitals - Most Recent: Last Vital Signs Temp 37.1 C 08/18/17 06:00 Pulse 68 08/18/17 08:07 Resp 20 08/18/17 06:00 BP 136/51 L 08/18/17 08:07 Pulse Ox 97 08/18/17 06:00 Vital Signs - 24 hr 08/17/17 08/17/17 08/17/17 10:42 12:14 16:16 Temperature [ 38.1 C 36.6 C Oral] Pulse, Peripheral Pulse, 67 66 Peripheral [ Pulse Oximetry] Respiratory 12 Rate Blood Pressure 127/50 L Blood Pressure 127/50 L [Left Upper Arm ] Blood Pressure 130/58 L [Right Upper Arm] O2 Sat by Pulse 97 97 Oximetry 08/17/17 08/17/17 08/17/17 17:20 17:24 17:25 Temperature [ Oral] Pulse, 70 Peripheral Pulse, 70 Peripheral [ Pulse Oximetry] Respiratory Rate Blood Pressure 143/63 H 143/63 H Blood Pressure [Left Upper Arm ] Blood Pressure 143/63 H [Right Upper Arm] O2 Sat by Pulse 97 Oximetry 08/17/17 08/17/17 08/17/17 17:26 18:00 19:28 Temperature [ 36.4 C 37.1 C Oral] Pulse, Peripheral Pulse, 68 69 Peripheral [ Pulse Oximetry] Respiratory 12 20 Rate Blood Pressure 143/63 H Blood Pressure [Left Upper Arm ] Blood Pressure 144/57 H 142/62 H [Right Upper Arm] O2 Sat by Pulse 96 96 Oximetry 08/18/17 08/18/17 08/18/17 00:00 01:20 06:00 Temperature [ 37.7 C 37.1 C Oral] Pulse, Peripheral Pulse, 66 67 Peripheral [ Pulse Oximetry] Respiratory 20 20 Rate Blood Pressure Blood Pressure [Left Upper Arm ] Blood Pressure 142/58 H 149/61 H [Right Upper Arm] O2 Sat by Pulse 96 96 97 Oximetry 08/18/17 08/18/17 08:04 08:07 Temperature [ Oral] Pulse, 68 Peripheral Pulse, Peripheral [ Pulse Oximetry] Respiratory Rate Blood Pressure 136/51 L 136/51 L Blood Pressure [Left Upper Arm ] Blood Pressure [Right Upper Arm] O2 Sat by Pulse Oximetry Weight - Most Recent: 136.078 kg I&O - Last 24 Hours: Intake & Output 08/17/17 08/18/17 08/18/17 22:59 06:59 14:59 Intake Total 200 250 Output Total 300 Balance -100 250 Imaging Impressions - Last 24 Hours: Chest x-ray, portable, shows evidence of moderate cardiomegaly and mostly centralized CHF with mild left pleural effusion. Poor inspiratory film with moderate COPD changes but no significant pulmonary infiltrates, pneumothorax, etc. clerical supervisor shows normal sinus rhythm with average heart rate in the 60s to 70s with no ectopy or arrhythmia Lab Results Last 24 Hours: Laboratory Results - last 24 hr 11/22/17 11/22/17 11/22/17 Range/Units 11:40 16:57 20:00 WBC (4.0-10.2) K/uL RBC (4.33-5.41) M/uL Hgb (13.1-16.8) g/dL Hct (39.0-49.0) % MCV (84.0-98.0) fL MCH (28.2-33.3) pg MCHC (31.7-36.0) g/dL RDW (11.2-14.1) % Plt Count (150-350) K/uL Neut % (Auto) (45.0-80.0) % Lymph % (Auto) (10.0-50.0) % [facility] % (Auto) (2.0-14.0) % Eos % (Auto) (0.0-5.0) % Baso % (Auto) (0.0-2.0) % Neut # (Auto) (1.40-7.00) K/uL Lymph # (Auto) (0.50-3.50) K/uL [facility] # (Auto) (0.00-1.00) K/uL Eos # (Auto) (0.00-0.50) K/uL Baso # (Auto) (0.00-0.20) K/uL Sodium (136-145) mmol/L Potassium (3.5-5.1) mmol/L Chloride (98-107) mmol/L Carbon Dioxide (21.0-32.0) mmol/L BUN (7-18) mg/dL Creatinine (0.51-1.17) mg/dL Est Cr Clr Drug Dosing mL/min Estimated GFR (MDRD) mL/min Glucose (74-106) mg/dL POC Glucose 161 H (65-110) mg/dl Hemoglobin A1c (4.3-5.7) % Lactic Acid (0.4-2.0) mmol/L Uric Acid (2.6-7.2) mg/dL Calcium (8.5-10.1) mg/dL Magnesium (1.8-2.4) mg/dL Total Bilirubin (0.2-1.0) mg/dL AST (15-37) U/L ALT (12-78) U/L Alkaline Phosphatase (46-116) IU/L Creatine Kinase 24 L (26-308) U/L Creatine Kinase Index 3.3 H (0.0-2.5) % CK-MB (CK-2) 0.80 (0.00-3.60) ng/mL Troponin I 0.007 (0.000-0.056) ng/mL NT-Pro-B Natriuret Pep 2270 H (0-125) pg/mL Total Protein (6.4-8.2) g/dL Albumin (3.4-5.0) g/dL Triglycerides (30-150) mg/dL Cholesterol (100-200) mg/dL LDL Cholesterol, Calc (0-100) mg/dL HDL Cholesterol (40-60) mg/dL Vitamin B12 (193-986) pg/mL Folate (8.6-58.9) ng/mL TSH, Ultra Sensitive (0.358-3.740) mIU/mL Specimen Type [place] Urine Color Yellow Urine Appearance Clear Urine pH 6.0 (5.0-9.0) Ur Specific [place] 1.010 (1.005-1.030) Urine Protein Negative (NEGATIVE) mg/dL Urine Glucose (UA) Negative (NEGATIVE) mg/dL Urine Ketones Negative (NEGATIVE) mg/dL Urine Occult Blood Negative (NEGATIVE) Urine Nitrite Negative (NEGATIVE) Urine Bilirubin Negative (NEGATIVE) Urine Urobilinogen 0.2 (0.2-1.0) E.U./dL Ur Leukocyte Esterase Moderate H (NEGATIVE) Urine RBC 0-5 /HPF Urine WBC 30-40 H /HPF Ur Epithelial Cells Rare /LPF Urine Bacteria Rare (NONE TO FEW) /HPF 08/18/17 08/18/17 08/18/17 Range/Units 07:20 07:20 07:20 WBC 11.6 H (4.0-10.2) K/uL RBC 3.70 L (4.33-5.41) M/uL Hgb 10.6 L (13.1-16.8) g/dL Hct 33.5 L (39.0-49.0) % MCV 90.5 (84.0-98.0) fL MCH 28.6 (28.2-33.3) pg MCHC 31.6 L (31.7-36.0) g/dL RDW 16.2 H (11.2-14.1) % Plt Count 178 (150-350) K/uL Neut % (Auto) 64.3 (45.0-80.0) % Lymph % (Auto) 19.3 (10.0-50.0) % [facility] % (Auto) 14.5 H (2.0-14.0) % Eos % (Auto) 1.6 (0.0-5.0) % Baso % (Auto) 0.3 (0.0-2.0) % Neut # (Auto) 7.47 H (1.40-7.00) K/uL Lymph # (Auto) 2.24 (0.50-3.50) K/uL [facility] # (Auto) 1.68 H (0.00-1.00) K/uL Eos # (Auto) 0.18 (0.00-0.50) K/uL Baso # (Auto) 0.03 (0.00-0.20) K/uL Sodium 140 (136-145) mmol/L Potassium 3.9 (3.5-5.1) mmol/L Chloride 102 (98-107) mmol/L Carbon Dioxide 31.0 (21.0-32.0) mmol/L BUN 27 H (7-18) mg/dL Creatinine 1.28 H (0.51-1.17) mg/dL Est Cr Clr Drug Dosing 54.81 mL/min Estimated GFR (MDRD) 55 mL/min Glucose 116 H (74-106) mg/dL POC Glucose (65-110) mg/dl Hemoglobin A1c (4.3-5.7) % Lactic Acid 1.0 (0.4-2.0) mmol/L Uric Acid 6.0 (2.6-7.2) mg/dL Calcium 9.5 (8.5-10.1) mg/dL Magnesium 1.8 (1.8-2.4) mg/dL Total Bilirubin 0.3 (0.2-1.0) mg/dL AST 16 (15-37) U/L ALT 22 (12-78) U/L Alkaline Phosphatase 85 (46-116) IU/L Creatine Kinase 24 L (26-308) U/L Creatine Kinase Index 2.5 (0.0-2.5) % CK-MB (CK-2) 0.60 (0.00-3.60) ng/mL Troponin I 0.000 (0.000-0.056) ng/mL NT-Pro-B Natriuret Pep (0-125) pg/mL Total Protein 6.3 L (6.4-8.2) g/dL Albumin 2.9 L (3.4-5.0) g/dL Triglycerides 78 (30-150) mg/dL Cholesterol 107 (100-200) mg/dL LDL Cholesterol, Calc 44 (0-100) mg/dL HDL Cholesterol 47 (40-60) mg/dL Vitamin B12 529 (193-986) pg/mL Folate 19.5 (8.6-58.9) ng/mL TSH, Ultra Sensitive 2.309 (0.358-3.740) mIU/mL Specimen Type Urine Color Urine Appearance Urine pH (5.0-9.0) Ur Specific [place] (1.005-1.030) Urine Protein (NEGATIVE) mg/dL Urine Glucose (UA) (NEGATIVE) mg/dL Urine Ketones (NEGATIVE) mg/dL Urine Occult Blood (NEGATIVE) Urine Nitrite (NEGATIVE) Urine Bilirubin (NEGATIVE) Urine Urobilinogen (0.2-1.0) E.U./dL Ur Leukocyte Esterase (NEGATIVE) Urine RBC /HPF Urine WBC /HPF Ur Epithelial Cells /LPF Urine Bacteria (NONE TO FEW) /HPF 08/18/17 08/18/17 Range/Units 07:20 07:42 WBC (4.0-10.2) K/uL RBC (4.33-5.41) M/uL Hgb (13.1-16.8) g/dL Hct (39.0-49.0) % MCV (84.0-98.0) fL MCH (28.2-33.3) pg MCHC (31.7-36.0) g/dL RDW (11.2-14.1) % Plt Count (150-350) K/uL Neut % (Auto) (45.0-80.0) % Lymph % (Auto) (10.0-50.0) % [facility] % (Auto) (2.0-14.0) % Eos % (Auto) (0.0-5.0) % Baso % (Auto) (0.0-2.0) % Neut # (Auto) (1.40-7.00) K/uL Lymph # (Auto) (0.50-3.50) K/uL [facility] # (Auto) (0.00-1.00) K/uL Eos # (Auto) (0.00-0.50) K/uL Baso # (Auto) (0.00-0.20) K/uL Sodium (136-145) mmol/L Potassium (3.5-5.1) mmol/L Chloride (98-107) mmol/L Carbon Dioxide (21.0-32.0) mmol/L BUN (7-18) mg/dL Creatinine (0.51-1.17) mg/dL Est Cr Clr Drug Dosing mL/min Estimated GFR (MDRD) mL/min Glucose (74-106) mg/dL POC Glucose 116 H (65-110) mg/dl Hemoglobin A1c 6.1 H (4.3-5.7) % Lactic Acid (0.4-2.0) mmol/L Uric Acid (2.6-7.2) mg/dL Calcium (8.5-10.1) mg/dL Magnesium (1.8-2.4) mg/dL Total Bilirubin (0.2-1.0) mg/dL AST (15-37) U/L ALT (12-78) U/L Alkaline Phosphatase (46-116) IU/L Creatine Kinase (26-308) U/L Creatine Kinase Index (0.0-2.5) % CK-MB (CK-2) (0.00-3.60) ng/mL Troponin I (0.000-0.056) ng/mL NT-Pro-B Natriuret Pep (0-125) pg/mL Total Protein (6.4-8.2) g/dL Albumin (3.4-5.0) g/dL Triglycerides (30-150) mg/dL Cholesterol (100-200) mg/dL LDL Cholesterol, Calc (0-100) mg/dL HDL Cholesterol (40-60) mg/dL Vitamin B12 (193-986) pg/mL Folate (8.6-58.9) ng/mL TSH, Ultra Sensitive (0.358-3.740) mIU/mL Specimen Type Urine Color Urine Appearance Urine pH (5.0-9.0) Ur Specific Bowman (1.005-1.030) Urine Protein (NEGATIVE) mg/dL Urine Glucose (UA) (NEGATIVE) mg/dL Urine Ketones (NEGATIVE) mg/dL Urine Occult Blood (NEGATIVE) Urine Nitrite (NEGATIVE) Urine Bilirubin (NEGATIVE) Urine Urobilinogen (0.2-1.0) E.U./dL Ur Leukocyte Esterase (NEGATIVE) Urine RBC /HPF Urine WBC /HPF Ur Epithelial Cells /LPF Urine Bacteria (NONE TO FEW) /HPF Eusebio Results Last 24 Hours: Microbiology 08/16/17 23:35 Blood - Venous - Lab Draw Aerobic Blood Culture - Preliminary NO GROWTH AFTER 1 DAY 08/16/17 23:35 Blood - Venous - Lab Draw Anaerobic Blood Culture - Preliminary NO GROWTH AFTER 1 DAY 08/16/17 23:05 Blood - Venous Aerobic Blood Culture - Preliminary NO GROWTH AFTER 1 DAY 08/16/17 23:05 Blood - Venous Anaerobic Blood Culture - Preliminary NO GROWTH AFTER 1 DAY Urine culture and sensitivity still pending Med Orders - Current: Current Medications Acetaminophen (Tylenol) 650 mg PO Q4H PRN PRN Reason: Fever/Pain Last Admin: 08/17/17 10:48 Dose: 650 mg Albuterol (Proventil Neb Soln) 2.5 mg INH Q2H PRN PRN Reason: SHORTNESS OF BREATH Albuterol/Ipratropium (Duoneb 3.0-0.5 Mg/3 Ml) 3 ml NEB Q6HRRT [facility] Last Admin: 08/18/17 08:08 Dose: 3 ml Albuterol/Ipratropium (Duoneb 3.0-0.5 Mg/3 Ml) 3 ml NEB Q4HRRT PRN PRN Reason: Dyspnea Amlodipine Besylate (Norvasc) 10 mg PO DAILY [facility] Last Admin: 08/18/17 08:04 Dose: 10 mg Aspirin (Aspirin) 81 mg PO DAILY [facility] Last Admin: 08/18/17 08:06 Dose: 81 mg Atorvastatin Calcium (Lipitor) 40 mg PO BEDTIME [facility] Last Admin: 08/17/17 19:05 Dose: 40 mg Bisacodyl (Dulcolax) 10 mg PO DAILY PRN PRN Reason: Constipation Carvedilol (Coreg) 6.25 mg PO BIDMEALS [facility] Last Admin: 08/18/17 08:07 Dose: 6.25 mg Clonidine HCl (Catapres) 0.2 mg PO TID [facility] Last Admin: 08/18/17 08:07 Dose: 0.2 mg Clopidogrel Bisulfate (Plavix) 75 mg PO DAILY [facility] Last Admin: 08/18/17 08:04 Dose: 75 mg Donepezil HCl (Aricept) 20 mg PO BEDTIME [facility] Last Admin: 08/17/17 19:05 Dose: 20 mg Fluticasone Propionate (Flonase) 0 gm NASBOTH BID@1000,1600 [facility] Last Admin: 08/17/17 16:20 Dose: 2 spray Furosemide (Lasix) 40 mg IVPUSH Q8H [facility] Last Admin: 08/18/17 01:47 Dose: 40 mg Gabapentin (Neurontin) 600 mg PO TID [facility] Last Admin: 08/18/17 08:03 Dose: 600 mg Azithromycin 500 mg/ Sodium (Chloride) 250 mls @ 250 mls/hr IV Q24H [facility] Last Admin: 08/17/17 23:08 Dose: 250 mls/hr Ceftriaxone Sodium 1 gm/ (Sodium Chloride) 100 mls @ 200 mls/hr IV Q12H [facility] Last Admin: 08/18/17 00:56 Dose: 200 mls/hr Insulin Aspart (Novolog Mix 70-30) 0 unit SUBCUT BIDAC [facility] PRN Reason: Protocol Last Admin: 08/18/17 08:09 Dose: Not Given Lamotrigine (Lamotrigine) 250 mg PO BID [facility] Last Admin: 08/18/17 08:01 Dose: 250 mg Levothyroxine Sodium (Levothyroxine) 25 mcg PO ACBREAKFAST [facility] Last Admin: 08/18/17 08:06 Dose: 25 mcg Lisinopril (Prinivil) 10 mg PO QPM [facility] Last Admin: 08/17/17 17:26 Dose: 10 mg Loratadine (Claritin) 10 mg PO DAILY [facility] Last Admin: 08/18/17 08:06 Dose: 10 mg Lorazepam (Ativan) 0.5 mg PO Q4H PRN PRN Reason: Anxiety Last Admin: 08/17/17 17:27 Dose: 0.5 mg Lorazepam (Ativan) 0.5 mg PO DAILY [facility] Last Admin: 08/18/17 08:04 Dose: 0.5 mg Lorazepam (Ativan) 1 mg PO BEDTIME [facility] Last Admin: 08/17/17 19:06 Dose: 1 mg Melatonin (Melatonin) 6 mg PO BEDTIME [facility] Last Admin: 08/17/17 19:06 Dose: 6 mg Memantine (Namenda) 10 mg PO BID [facility] Last Admin: 08/18/17 08:05 Dose: 10 mg Metformin HCl (Glucophage) 500 mg PO BIDMEALS [facility] Last Admin: 08/18/17 08:03 Dose: 500 mg Nitroglycerin (Nitrostat) 0.4 mg SL Q5M PRN PRN Reason: Chest Pain Pantoprazole Sodium (Protonix) 40 mg PO DAILY@0700 [facility] Last Admin: 08/18/17 08:05 Dose: 40 mg Polyethylene Glycol (Miralax) 17 gm PO BEDTIME [facility] Last Admin: 08/17/17 19:05 Dose: 17 gm Potassium Chloride (Klor-Con M20) 20 meq PO TID [facility] Last Admin: 08/18/17 08:03 Dose: 20 meq Senna/Docusate Sodium (Senna Plus) 2 tab PO BID [facility] Last Admin: 08/18/17 08:06 Dose: 2 tab Sertraline HCl (Zoloft) 200 mg PO DAILY [facility] Last Admin: 08/18/17 08:02 Dose: 200 mg Sodium Chloride (Saline Flush) 10 ml FLUSH ASDIRECTED PRN PRN Reason: IV Use Last Admin: 08/18/17 01:53 Dose: 10 ml Tramadol HCl (Ultram) 50 mg PO Q6H PRN PRN Reason: Breakthrough Pain Triamcinolone Acetonide (Triamcinolone Acetonide 0.1% Crm) 0 gm TOP BID PRN PRN Reason: itching Discontinued Medications Acetaminophen (Tylenol) 650 mg PO Q6H PRN PRN Reason: Fever/Pain Albuterol (Proventil Neb Soln) 2.5 mg NEB Q4H PRN PRN Reason: Cough Carvedilol (Coreg) 6.25 mg PO ONETIME ONE Stop: 08/16/17 21:37 Last Admin: 08/16/17 21:57 Dose: 6.25 mg Carvedilol (Coreg) 3.125 mg PO ONETIME ONE Stop: 08/16/17 21:38 Last Admin: 08/16/17 21:58 Dose: 3.125 mg Carvedilol (Coreg) 6.25 mg PO BID [facility] Last Admin: 08/17/17 08:14 Dose: 9.375 mg Clonidine HCl (Catapres) 0.2 mg PO ONETIME ONE Stop: 08/16/17 21:37 Last Admin: 08/16/17 21:57 Dose: 0.2 mg Docusate Sodium (Colace) 100 mg PO BID [facility] Last Admin: 08/17/17 08:19 Dose: 100 mg Furosemide (Lasix) 40 mg PO DAILY [facility] Last Admin: 08/17/17 08:19 Dose: 40 mg Azithromycin 500 mg/ Sodium (Chloride) 250 mls @ 250 mls/hr IV ONETIME ONE Stop: 08/17/17 00:59 Last Admin: 08/17/17 01:19 Dose: 250 mls/hr Ceftriaxone Sodium 1 gm/ (Sodium Chloride) 100 mls @ 200 mls/hr IV ONETIME ONE Stop: 08/17/17 00:30 Last Admin: 08/17/17 00:47 Dose: 200 mls/hr Lorazepam (Ativan) 1 mg PO ONETIME ONE Stop: 08/16/17 21:39 Last Admin: 08/16/17 21:57 Dose: 1 mg Non-Formulary Medication (Capsaicin/Menthol [Salonpas Gel-Patch Hot]) 1 each TP BID PRN PRN Reason: Pain Non-Formulary Medication (Tramadol [Ultram Er]) 100 mg PO DAILY PRN PRN Reason: Pain (moderate 4-6) Tramadol HCl (Ultram) 50 mg PO DAILY@1130 [facility] Tramadol HCl (Ultram) 100 mg PO BID [facility] Last Admin: 08/17/17 08:12 Dose: 100 mg Tramadol HCl (Ultram) 50 mg PO DAILY@1200 [facility] Triamcinolone Acetonide (Triamcinolone Acetonide 0.1% Crm) 0 gm TOP DAILY PRN PRN Reason: Itching - Exam Quality Assessment: DVT Prophylaxis. No: Supplemental Oxygen, Central Line/PICC , Urine Catheter, Skin Breakdown, Restraints General: Alert, Cooperative, No Acute Distress. No: Oriented (Stable moderate OBS) HEENT: Pupils Equal, Pupils Reactive, EOMI, Mucous Membr. Moist/[place] Neck: Supple, Trachea Midline, No JVD, No Thyromegaly, Carotid Bruit (Mild bilateral carotid bruits). No: Lymphadenopathy Lungs: Normal Respiratory Effort, Rales (Mild bilateral basilar rales). No: Rhonchi, Rub, Wheezing Cardiovascular: Regular Rate, Regular Rhythm, No Murmurs. No: Gallops, Rubs GI/Abdominal Exam: Normal Bowel Sounds, Soft, Non-Tender, No Organomegaly, No Distention, No Abnormal Bruit, No Mass, Pelvis Stable, Other (Obese). No: Guarding (Male) Exam: Deferred Back Exam: Normal Inspection, Full Range of Motion. No: CVA Tenderness (L), CVA Tenderness (R), Muscle Spasm Extremities: Normal Range of Motion, Non-Tender, Normal Capillary Refill, Pedal Edema (Stable +1 to +2 bilateral pedal/pretibial edema). No: Madelyn's Sign Peripheral Pulses: 0: Dorsalis Pedis (L), Dorsalis Pedis (R), 2+: Radial (L), Radial (R) Skin: Warm, Dry, Intact. No: Ecchymosis Neurological: No New Focal Deficit, Other (Table chronic bilateral leg weakness) Psy/Mental Status: Alert, Normal Affect, Normal Mood. No: Hallucinations, Withdrawal Symptoms EKG INTERPRETATION EKG Date: 08/18/17 Time: 08:29 Rhythm: NSR Rate (Beats/Min): 70 [place]: Normal (Left cardiac axis) P-Wave: Enlarged (Moderate Diffuse biphasic P waves with pulmonary hypertension by EKG) QRS: RBBB (QRS interval of 0.15 seconds representing a complete right bundle branch block with T-wave inversion in leads V1 and 3) ST-T: Normal QT: Normal ND/PQ Interval: 0.142 seconds Comparison: No Change (08/17/17 other than return of T wave inversion to lead V1 with probable incorrect lead placement yesterday) EKG Interpretation Comments: 1. No acute ischemic changes 2. Complete right bundle branch block 3. Pulmonary hypertension by EKG 4. Left atrial enlargement by EKG - Problem List & Annotations (1) Elevated WBC count SNOMED Code(s): 476452226 Code(s): D72.829 - ELEVATED WHITE BLOOD CELL COUNT, UNSPECIFIED Status: Acute Priority: High Current Visit: Yes Onset Date: ~08/16/17 Qualifiers: Leukocytosis type: bandemia Qualified Code(s): D72.825 - Bandemia Annotation/Comment:: Positive UA with no evidence of sepsis and improved leukocytosis today. Continue current medical therapy. Cannot rule out possible concomitant pneumonia as below however difficult to assess secondary to his CHF. Sputum specimen yet to be obtained despite nebulizer treatments. Lactic acid normal to this point. Continue Zithromax and Rocephin. (2) Need for comfort care SNOMED Code(s): 898031779 Code(s): NSC0364 - Status: Chronic Priority: High Current Visit: Yes Annotation/Comment:: Continue comfort care only. Long-term prognosis poor. The patient's was updated concerning his current care and diagnoses. (3) UTI (urinary tract infection) SNOMED Code(s): 69903522 Code(s): N39.0 - URINARY TRACT INFECTION, SITE NOT SPECIFIED Status: Acute Priority: High Current Visit: Yes Onset Date: 08/17/17 Qualifiers: Urinary tract infection type: acute cystitis Hematuria presence: with hematuria Qualified Code(s): N30.01 - Acute cystitis with hematuria Annotation/Comment:: IV Rocephin and IV Zithromax therapy. Improved leukocytosis as above (4) Chest pain of uncertain etiology SNOMED Code(s): 73138523 Code(s): R07.89 - OTHER CHEST PAIN Status: Acute Priority: High Current Visit: Yes Onset Date: 08/17/17 Annotation/Comment:: No chest pain or anginal type symptoms. Negative workup for acute RI as above. Note comfort care (5) CAD (coronary artery disease) SNOMED Code(s): 62530286 Code(s): I25.10 - ATHSCL HEART DISEASE OF [place] CORONARY ARTERY W/O ANG PCTRS Status: Chronic Priority: Medium Current Visit: Yes Qualifiers: Coronary Disease-Associated Artery/Lesion type: ruby artery [place] vs. transplanted heart: ruby heart Associated angina: without angina Qualified Code(s): I25.10 - Atherosclerotic heart disease of ruby coronary artery without angina pectoris Annotation/Comment:: No anginal complaints, however patient is a poor historian. Note NO CODE STATUS and previous history of a non-STEMI. Long-term prognosis poor. (6) CHF (congestive heart failure) SNOMED Code(s): 12058487 Code(s): I50.9 - HEART FAILURE, UNSPECIFIED Status: Chronic Priority: High Current Visit: Yes Onset Date: ~09/26/16 Qualifiers: Congestive heart failure type: unspecified congestive heart failure type Congestive heart failure chronicity: acute on chronic Qualified Code(s): I50.9 - Heart failure, unspecified Annotation/Comment:: Known history of CHF. Note significant persistent dependent edema. IV Lasix therapy initiated yesterday with elevated BNP noted yesterday with repeat blood work in the a.m. No echocardiogram, etc. secondary to NO CODE STATUS. (7) COPD (chronic obstructive pulmonary disease) SNOMED Code(s): 86840057 Code(s): J44.9 - CHRONIC OBSTRUCTIVE PULMONARY DISEASE, UNSPECIFIED Status : Chronic Priority: Medium Current Visit: Yes Qualifiers: COPD type: COPD with acute lower respiratory infection Qualified Code(s): J44.0 - Chronic obstructive pulmonary disease with acute lower respiratory infection Annotation/Comment:: Cannot rule out concomitant beginning pneumonia as above with continuation of IV Rocephin and Zithromax. Continue nebulizer treatments as before. Blood cultures 2 are negative to this point. Initiate incentive spirometry (8) Anemia SNOMED Code(s): 483724488 Code(s): D64.9 - ANEMIA, UNSPECIFIED Status: Acute Priority: Medium Current Visit: Yes Onset Date: 08/17/17 Qualifiers: Anemia type: unspecified type Qualified Code(s): D64.9 - Anemia, unspecified Annotation/Comment:: Mildly anemia today. Hemoccults pending. No evidence of abdominal pain or acute GI bleed. Iron studies still pending with normal folic acid level and vitamin B-12 levels this morning. (9) Peptic reflux disease SNOMED Code(s): 77111953 Code(s): K21.9 - GASTRO-ESOPHAGEAL REFLUX DISEASE WITHOUT ESOPHAGITIS Status: Chronic Priority: Medium Current Visit: Yes Annotation/Comment:: Stable by history. Continue current medical therapy (10) Hypertension SNOMED Code(s): 30658033 Code(s): I10 - ESSENTIAL (PRIMARY) HYPERTENSION Status: Chronic Priority : Medium Current Visit: Yes Qualifiers: Hypertension type: essential hypertension Qualified Code(s): I10 - Essential (primary) hypertension Annotation/Comment:: Blood pressures significantly improved from time of admission. Continue to observe closely (11) Hypoalbuminemia SNOMED Code(s): 483891168 Code(s): E88.09 - OTH DISORDERS OF PLASMA-PROTEIN METABOLISM, NEC Status: Acute Priority: Medium Current Visit: Yes Onset Date: ~09/27/16 Annotation/Comment:: No hypoalbuminemia to this point. Continue to observe closely (12) Dementia SNOMED Code(s): 86406956 Code(s): F03.90 - UNSPECIFIED DEMENTIA WITHOUT BEHAVIORAL DISTURBANCE Status: Chronic Priority: Medium Current Visit: Yes Qualifiers: Dementia type: Alzheimer's disease Alzheimer's disease onset: late-onset Dementia behavioral disturbance: without behavioral disturbance Qualified Code (s): G30.1 - Alzheimer's disease with late onset; F02.80 - Dementia in other diseases classified elsewhere without behavioral disturbance; F02.80 - Dementia in other diseases classified elsewhere without behavioral disturbance; F02.80 - Dementia in other diseases classified elsewhere without behavioral disturbance Annotation/Comment:: Stable by history. Mixed vascular and Alzheimers (13) Diabetes mellitus SNOMED Code(s): 83969505 Code(s): E11.9 - TYPE 2 DIABETES MELLITUS WITHOUT COMPLICATIONS Status: Chronic Priority: Medium Current Visit: Yes Qualifiers: Diabetes mellitus type: type 2 Diabetes mellitus complication status: without complication Diabetes mellitus long-term insulin use: without long-term use Qualified Code(s): E11.9 - Type 2 diabetes mellitus without complications Annotation/Comment:: Continue to observe closely. Glycosylated hemoglobin of 6.1 % this a.m.. Twice a day Accu-Cheks and sliding scale are to be continued (14) Hyperlipidemia SNOMED Code(s): 55201111 Code(s): E78.5 - HYPERLIPIDEMIA, UNSPECIFIED Status: Chronic Priority: Medium Current Visit: Yes Qualifiers: Hyperlipidemia type: unspecified Qualified Code(s): E78.5 - Hyperlipidemia , unspecified Annotation/Comment:: Currently under therapy. Lipid panel this morning was normal. (15) Hypothyroid SNOMED Code(s): 96371462 Code(s): E03.9 - HYPOTHYROIDISM, UNSPECIFIED Status: Chronic Priority: Medium Current Visit: Yes Qualifiers: Hypothyroidism type: acquired Qualified Code(s): E03.9 - Hypothyroidism, unspecified Annotation/Comment:: TSH during this hospitalization (16) Osteoarthritis SNOMED Code(s): 888222157 Code(s): M19.90 - UNSPECIFIED OSTEOARTHRITIS, UNSPECIFIED SITE Status: Chronic Priority: Medium Current Visit: Yes Qualifiers: Osteoarthritis location: multiple joints Osteoarthritis type: primary Qualified Code(s): M15.0 - Primary generalized (osteo)arthritis Annotation/Comment:: Stable by history - Problem List Review Problem List Initiated/Reviewed/Updated: Yes - My Orders Last 24 Hours: My Active Orders 08/17/17 10:16 CHF Questionnaire [COMM] Routine 08/17/17 10:17 CULTURE SPUTUM + SMEAR [RM] Routine Comfort Measures [OM.PC] Routine 08/17/17 10:19 H PYLORI STOOL ANTIGEN [MREF] Routine GM Immunization Reflex [OM.PC] Click To Edit 08/17/17 10:20 OCCULT BLOOD DIAGNOSTIC [OP] Stat 08/17/17 10:21 Albuterol [Proventil Neb Soln] 2.5 mg INH Q2H PRN 08/17/17 10:25 RT Aerosol Therapy [RC] 02,08,14,20 Albuterol/Ipratropium [DuoNeb 3.0-0.5 MG/3 ML] 3 ml NEB Q4HRRT PRN 08/17/17 10:26 Acetaminophen [Tylenol] 650 mg PO Q4H PRN 08/17/17 10:34 Communication Order [RC] ROUTINE traMADol [Ultram] 50 mg PO Q6H PRN 08/17/17 10:45 Furosemide [Lasix] 40 mg IVPUSH Q8H 08/17/17 10:55 MRSA BY PCR [MREF] Routine 08/17/17 12:00 Potassium Chloride [Klor-Con M20] 20 meq PO TID cefTRIAXone [Rocephin] 1 gm Sodium Chloride 0.9% [Normal Saline] 100 ml IV Q12H 08/17/17 14:00 Albuterol/Ipratropium [DuoNeb 3.0-0.5 MG/3 ML] 3 ml NEB Q6HRRT 08/17/17 17:00 Blood Glucose Check, Bedside [RC] BIDAC 08/17/17 17:30 Carvedilol [Coreg] 6.25 mg PO BIDMEALS Insuln Asp Prot/Insulin Aspart [NovoLOG Mix 70-30] See Protocol SUBCUT BIDAC 08/17/17 18:00 Lisinopril [Prinivil] 10 mg PO QPM 08/17/17 19:00 Sodium Chloride 0.9% [Saline Flush] 10 ml FLUSH ASDIRECTED PRN 08/17/17 23:50 Azithromycin [Zithromax] 500 mg Sodium Chloride 0.9% [Normal Saline] 250 ml IV Q24H 08/17/17 Lunch Fluid Restriction [DIET] 08/18/17 05:11 EKG Documentation Completion [RC] ASDIRECTED Chest 2V [CR] Routine 08/18/17 08:36 Chest 1V Frontal [CR] Routine - Assessment Assessment:: As above - Plan Plan:: As above. Extensive precautions were given to the patient, who is in agreement with the treatment plan. The patient will require about 1-2 days of inpatient/ acute care secondary to multiple health problems as above.
[2017-08-18] MEDS: Fluticasone Propionate Nasal Spray 16 GM Bottle NASBOTH SCH ×2 (10:45→16:18)
[2017-08-18] MEDS ORDERED: Polyethylene Glycol 3350 Powder 17 GM Packet PO ONE ×2 (11:10→11:14)
[2017-08-18] MEDS ORDERED: Magnesium Hydroxide 400 MG/5 ML Susp 30 ML Cup PO ONE (11:12)
[2017-08-18] MEDS ORDERED: Magnesium Citrate Solution 296 ML Bottle PO ONE (11:54)
[2017-08-18] MEDS: Acetaminophen 325 MG Tab PO PRN (12:53)
[2017-08-18] MEDS: LORazepam 0.5 MG Tab PO PRN (12:55)
[2017-08-18] MEDS: Lisinopril 10 MG Tab PO SCH (17:47)
[2017-08-18] MEDS: Donepezil 10 MG Tab PO SCH (19:29)
[2017-08-18] MEDS: Polyethylene Glycol 3350 Powder 17 GM Packet PO SCH (19:29)
[2017-08-18] MEDS: Melatonin 3 MG Tab PO SCH (19:29)
[2017-08-18] MEDS: atorvaSTATin 40 MG Tab PO SCH (19:29)
[2017-08-18] MEDS: LORazepam 1 MG Tab PO SCH (19:29)
[2017-08-18] MEDS: Enoxaparin 30 MG/0.3 ML Syringe SUBCUT SCH (19:30)
[2017-08-18] MEDS ORDERED: Aluminum Hydroxide/Magnesium Hydroxide/Simethicone Susp 30 ML Cup PO PRN (19:49)
[2017-08-18] MEDS: Azithromycin 500 MG in Sodium Chloride 0.9% 250 ML IV SCH (23:21)
[2017-08-19] MEDS: cefTRIAXone 1 GM in Sodium Chloride 0.9% 100 ML IV SCH ×2 (00:26→11:19)
[2017-08-19] MEDS: Sodium Chloride 0.9% 10 ML Syringe FLUSH PRN ×5 (00:27→17:51)
[2017-08-19] MEDS: Furosemide 40 MG/4 ML VIAL IVPUSH SCH ×3 (02:54→17:50)
[2017-08-19] MEDS: Albuterol/Ipratropium 3.0-0.5 MG/3 ML Neb Soln NEB SCH ×4 (02:54→20:20)
[2017-08-19] MEDS: Potassium Chloride 20 MEQ Tab.ER PO SCH ×3 (07:28→17:14)
[2017-08-19] MEDS: Carvedilol 6.25 MG Tab PO SCH ×2 (07:29→17:14)
[2017-08-19] MEDS: Gabapentin 300 MG Cap PO SCH ×3 (07:29→17:15)
[2017-08-19] MEDS: Aspirin 81 MG Tab.Chew PO SCH (07:29)
[2017-08-19] MEDS: Memantine 10 MG Tab PO SCH ×2 (07:30→17:15)
[2017-08-19] MEDS: LORazepam 0.5 MG Tab PO SCH (07:30)
[2017-08-19] MEDS: Sertraline 50 MG Tab PO SCH (07:30)
[2017-08-19] MEDS: cloNIDine 0.1 MG Tab PO SCH ×3 (07:31→17:16)
[2017-08-19] MEDS: Levothyroxine 25 MCG Tab PO SCH (07:31)
[2017-08-19] MEDS: Pantoprazole 40 MG Tab.CR PO SCH (07:31)
[2017-08-19] MEDS: Clopidogrel 75 MG Tab PO SCH (07:31)
[2017-08-19] MEDS: metFORMIN 500 MG Tab PO SCH ×2 (07:32→17:14)
[2017-08-19] MEDS: Loratadine 10 MG Tab PO SCH (07:32)
[2017-08-19] MEDS: amLODIPine 5 MG Tab PO SCH (07:32)
[2017-08-19] MEDS: lamoTRIgine 100 MG Tab PO SCH ×2 (07:32→17:49)
[2017-08-19] MEDS: Insuln Aspart Prot/Insulin Aspart 100 Units/ML 3 ML FlexPen SUBCUT SCH ×2 (07:35→17:23)
[2017-08-19] MEDS: Fluticasone Propionate Nasal Spray 16 GM Bottle NASBOTH SCH ×2 (09:48→17:04)
--- NOTE | 2017-08-19 09:51 | PCM.PN ---
- General Info Date of Service: 08/19/17 Admission Dx/Problem (Free Text): 1. Chest pain 2. Leukocytosis Subjective Update: Patient is a poor historian secondary to his OBS which is at baseline per history from his Functional Status: Reports: Pain Controlled, Tolerating Diet, Urinating, Incentive Spirometry. Denies: Ambulating (Karen lift patient), New Symptoms - Review of Systems General: Reports: Fever (No fever this morning with low grade fever persisting yesterday), Weakness (Stable bilateral leg and generalized). Denies: Fatigue, Malaise, Chills, Night Sweats, Appetite (Good) HEENT: Reports: No Symptoms. Denies: Ear Pain, Eye Pain, Headaches, Sinus Congestion, Sore Throat, Rhinitis, Visual Changes Pulmonary: Reports: No Symptoms. Denies: Shortness of Breath, Pleuritic Chest Pain, Cough, Sputum, Hemoptysis, Wheezing Cardiovascular: Reports: Edema (Improved dependent as below ). Denies: Chest Pain, Palpitations, Orthopnea, Lightheadedness Gastrointestinal: Denies: Abdominal Pain, Constipation (Excellent results with MiraLAX with magnesium citrate yesterday per nurse's history), Decreased Appetite, Diarrhea, Difficulty Swallowing, Flatus, Hematochezia, Melena, Nausea , Vomiting Genitourinary: Reports: Incontinence. Denies: Dysuria, Frequency, Burning, Urgency, Retention, Flank Pain Musculoskeletal: Reports: No Symptoms. Denies: Neck Pain, Shoulder Pain, Arm Pain, Back Pain Skin: Reports: No Symptoms. Denies: Diaphoresis, Bruising Neurological: Reports: Confusion (Stable), Pre-Existing Deficit (Stable leg weakness), Difficulty Walking, Weakness (As above). Denies: Dizziness, Headache , Numbness, Paresthesia, Tingling, Tremors, Change in Speech Psychiatric: Reports: Confusion (Stable). Denies: Depression, Anxiety, Agitation, Hallucinations - Patient Data Vitals - Most Recent: Last Vital Signs Temp 36.8 C 08/19/17 07:05 Pulse 61 08/19/17 07:29 Resp 18 08/19/17 07:05 BP 148/67 H 08/19/17 07:32 Pulse Ox 95 08/19/17 07:05 Vital Signs - 24 hr 08/18/17 08/18/17 08/18/17 12:00 12:15 17:41 Temperature [ Oral] Temperature [ 36.8 C 37.2 C Temporal] Pulse, Peripheral Pulse, 63 68 Peripheral [ Pulse Oximetry] Respiratory 16 20 Rate Blood Pressure 134/58 L Blood Pressure 134/58 L [Left Upper Arm ] Blood Pressure 143/57 H [Right Upper Arm] O2 Sat by Pulse 97 97 Oximetry O2 Sat by Pulse Oximetry [ Nasal Cannula] 08/18/17 08/18/17 08/19/17 17:44 17:47 00:00 Temperature [ Oral] Temperature [ 37.1 C Temporal] Pulse, 68 Peripheral Pulse, 96 Peripheral [ Pulse Oximetry] Respiratory 12 Rate Blood Pressure 143/57 H 143/57 H Blood Pressure 122/53 L [Left Upper Arm ] Blood Pressure [Right Upper Arm] O2 Sat by Pulse 96 Oximetry O2 Sat by Pulse Oximetry [ Nasal Cannula] 08/19/17 08/19/17 08/19/17 01:00 06:00 07:00 Temperature [ 37.1 C Oral] Temperature [ Temporal] Pulse, Peripheral Pulse, 63 Peripheral [ Pulse Oximetry] Respiratory 16 Rate Blood Pressure Blood Pressure [Left Upper Arm ] Blood Pressure 158/63 H [Right Upper Arm] O2 Sat by Pulse 96 100 Oximetry O2 Sat by Pulse 97 Oximetry [ Nasal Cannula] 08/19/17 08/19/17 08/19/17 07:05 07:15 07:29 Temperature [ 36.8 C Oral] Temperature [ Temporal] Pulse, 61 Peripheral Pulse, 61 Peripheral [ Pulse Oximetry] Respiratory 18 Rate Blood Pressure 148/67 H Blood Pressure 148/67 H [Left Upper Arm ] Blood Pressure [Right Upper Arm] O2 Sat by Pulse 95 Oximetry O2 Sat by Pulse 95 Oximetry [ Nasal Cannula] 08/19/17 08/19/17 07:31 07:32 Temperature [ Oral] Temperature [ Temporal] Pulse, Peripheral Pulse, Peripheral [ Pulse Oximetry] Respiratory Rate Blood Pressure 148/67 H 148/67 H Blood Pressure [Left Upper Arm ] Blood Pressure [Right Upper Arm] O2 Sat by Pulse Oximetry O2 Sat by Pulse Oximetry [ Nasal Cannula] Weight - Most Recent: 136.078 kg I&O - Last 24 Hours: Intake & Output 08/18/17 08/19/17 08/19/17 22:59 06:59 14:59 Intake Total 320 240 200 Balance 320 240 200 Imaging Impressions - Last 24 Hours: 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 with average heart rate in the 60s with no ectopy or arrhythmia Lab Results Last 24 Hours: Laboratory Results - last 24 hr 08/18/17 08/18/17 08/19/17 Range/Units 07:20 17:22 07:07 WBC (4.0-10.2) K/uL RBC (4.33-5.41) M/uL Hgb (13.1-16.8) g/dL Hct (39.0-49.0) % MCV (84.0-98.0) fL MCH (28.2-33.3) pg MCHC (31.7-36.0) g/dL RDW (11.2-14.1) % Plt Count (150-350) K/uL Neut % (Auto) (45.0-80.0) % Lymph % (Auto) (10.0-50.0) % [place] % (Auto) (2.0-14.0) % Eos % (Auto) (0.0-5.0) % Baso % (Auto) (0.0-2.0) % Neut # (Auto) (1.40-7.00) K/uL Lymph # (Auto) (0.50-3.50) K/uL [place] # (Auto) (0.00-1.00) K/uL Eos # (Auto) (0.00-0.50) K/uL Baso # (Auto) (0.00-0.20) K/uL Sodium (136-145) mmol/L Potassium (3.5-5.1) mmol/L Chloride (98-107) mmol/L Carbon Dioxide (21.0-32.0) mmol/L BUN (7-18) mg/dL Creatinine (0.51-1.17) mg/dL Est Cr Clr Drug Dosing mL/min Estimated GFR (MDRD) mL/min Glucose (74-106) mg/dL POC Glucose 216 H 99 (65-110) mg/dl Calcium (8.5-10.1) mg/dL Iron 13 L (50-175) ug/dL TIBC 247 L (250-450) ug/dL % Saturation 5.11459 NT-Pro-B Natriuret Pep (0-125) pg/mL 08/19/17 08/19/17 Range/Units 07:25 07:25 WBC 8.2 (4.0-10.2) K/uL RBC 3.86 L (4.33-5.41) M/uL Hgb 10.9 L (13.1-16.8) g/dL Hct 35.2 L (39.0-49.0) % MCV 91.2 (84.0-98.0) fL MCH 28.2 (28.2-33.3) pg MCHC 31.0 L (31.7-36.0) g/dL RDW 15.7 H (11.2-14.1) % Plt Count 187 (150-350) K/uL Neut % (Auto) 61.2 (45.0-80.0) % Lymph % (Auto) 20.2 (10.0-50.0) % [place] % (Auto) 12.7 (2.0-14.0) % Eos % (Auto) 5.4 H (0.0-5.0) % Baso % (Auto) 0.5 (0.0-2.0) % Neut # (Auto) 5.02 (1.40-7.00) K/uL Lymph # (Auto) 1.66 (0.50-3.50) K/uL [place] # (Auto) 1.04 H (0.00-1.00) K/uL Eos # (Auto) 0.44 (0.00-0.50) K/uL Baso # (Auto) 0.04 (0.00-0.20) K/uL Sodium 143 (136-145) mmol/L Potassium 4.3 (3.5-5.1) mmol/L Chloride 104 (98-107) mmol/L Carbon Dioxide 32.6 H (21.0-32.0) mmol/L BUN 30 H (7-18) mg/dL Creatinine 1.23 H (0.51-1.17) mg/dL Est Cr Clr Drug Dosing 57.04 mL/min Estimated GFR (MDRD) 57 mL/min Glucose 116 H (74-106) mg/dL POC Glucose (65-110) mg/dl Calcium 9.7 (8.5-10.1) mg/dL Iron (50-175) ug/dL TIBC (250-450) ug/dL % Saturation NT-Pro-B Natriuret Pep 1497 H (0-125) pg/mL Eusebio Results Last 24 Hours: Microbiology 08/16/17 23:35 Blood - Venous - Lab Draw Aerobic Blood Culture - Preliminary NO GROWTH AFTER 2 DAYS 08/16/17 23:35 Blood - Venous - Lab Draw Anaerobic Blood Culture - Preliminary NO GROWTH AFTER 2 DAYS 08/16/17 23:05 Blood - Venous Aerobic Blood Culture - Preliminary NO GROWTH AFTER 2 DAYS 08/16/17 23:05 Blood - Venous Anaerobic Blood Culture - Preliminary NO GROWTH AFTER 2 DAYS Hemoccult negative with final report pending. H. pylori stool specimen has been collected Catheter urine culture and sensitivity results still pending Med Orders - Current: Current Medications Acetaminophen (Tylenol) 650 mg PO Q4H PRN PRN Reason: Fever/Pain Last Admin: 08/18/17 12:53 Dose: 650 mg Al Hydroxide/Mg Hydroxide (Mag-Al Plus) 30 ml PO DAILY PRN PRN Reason: Indigestion Last Admin: 08/18/17 19:51 Dose: 30 ml Albuterol (Proventil Neb Soln) 2.5 mg INH Q2H PRN PRN Reason: SHORTNESS OF BREATH Albuterol/Ipratropium (Duoneb 3.0-0.5 Mg/3 Ml) 3 ml NEB Q6HRRT [facility] Last Admin: 08/19/17 07:28 Dose: 3 ml Albuterol/Ipratropium (Duoneb 3.0-0.5 Mg/3 Ml) 3 ml NEB Q4HRRT PRN PRN Reason: Dyspnea Amlodipine Besylate (Norvasc) 10 mg PO DAILY [facility] Last Admin: 08/19/17 07:32 Dose: 10 mg Aspirin (Aspirin) 81 mg PO DAILY [facility] Last Admin: 08/19/17 07:29 Dose: 81 mg Atorvastatin Calcium (Lipitor) 40 mg PO BEDTIME [facility] Last Admin: 08/18/17 19:29 Dose: 40 mg Bisacodyl (Dulcolax) 10 mg PO DAILY PRN PRN Reason: Constipation Carvedilol (Coreg) 6.25 mg PO BIDMEALS [facility] Last Admin: 08/19/17 07:29 Dose: 6.25 mg Clonidine HCl (Catapres) 0.2 mg PO TID [facility] Last Admin: 08/19/17 07:31 Dose: 0.2 mg Clopidogrel Bisulfate (Plavix) 75 mg PO DAILY [facility] Last Admin: 08/19/17 07:31 Dose: 75 mg Donepezil HCl (Aricept) 20 mg PO BEDTIME [facility] Last Admin: 08/18/17 19:29 Dose: 20 mg Enoxaparin Sodium (Lovenox) 30 mg SUBCUT BEDTIME [facility] Last Admin: 08/18/17 19:30 Dose: 30 mg Fluticasone Propionate (Flonase) 0 gm NASBOTH BID@1000,1600 [facility] Last Admin: 08/18/17 16:18 Dose: 2 spray Furosemide (Lasix) 40 mg IVPUSH Q8H [facility] Last Admin: 08/19/17 02:54 Dose: 40 mg Gabapentin (Neurontin) 600 mg PO TID [facility] Last Admin: 08/19/17 07:29 Dose: 600 mg Azithromycin 500 mg/ Sodium (Chloride) 250 mls @ 250 mls/hr IV Q24H [facility] Last Admin: 08/18/17 23:21 Dose: 250 mls/hr Ceftriaxone Sodium 1 gm/ (Sodium Chloride) 100 mls @ 200 mls/hr IV Q12H [facility] Last Admin: 08/19/17 00:26 Dose: 200 mls/hr Insulin Aspart (Novolog Mix 70-30) 0 unit SUBCUT BIDAC [facility] PRN Reason: Protocol Last Admin: 08/19/17 07:35 Dose: Not Given Lamotrigine (Lamotrigine) 250 mg PO BID [facility] Last Admin: 08/19/17 07:32 Dose: 250 mg Levothyroxine Sodium (Levothyroxine) 25 mcg PO ACBREAKFAST [facility] Last Admin: 08/19/17 07:31 Dose: 25 mcg Lisinopril (Prinivil) 10 mg PO QPM [facility] Last Admin: 08/18/17 17:47 Dose: 10 mg Loratadine (Claritin) 10 mg PO DAILY [facility] Last Admin: 08/19/17 07:32 Dose: 10 mg Lorazepam (Ativan) 0.5 mg PO Q4H PRN PRN Reason: Anxiety Last Admin: 08/18/17 12:55 Dose: 0.5 mg Lorazepam (Ativan) 0.5 mg PO DAILY [facility] Last Admin: 08/19/17 07:30 Dose: 0.5 mg Lorazepam (Ativan) 1 mg PO BEDTIME [facility] Last Admin: 08/18/17 19:29 Dose: 1 mg Melatonin (Melatonin) 6 mg PO BEDTIME [facility] Last Admin: 08/18/17 19:29 Dose: 6 mg Memantine (Namenda) 10 mg PO BID [facility] Last Admin: 08/19/17 07:30 Dose: 10 mg Metformin HCl (Glucophage) 500 mg PO BIDMEALS [facility] Last Admin: 08/19/17 07:32 Dose: 500 mg Nitroglycerin (Nitrostat) 0.4 mg SL Q5M PRN PRN Reason: Chest Pain Pantoprazole Sodium (Protonix) 40 mg PO DAILY@0700 [facility] Last Admin: 08/19/17 07:31 Dose: 40 mg Polyethylene Glycol (Miralax) 17 gm PO BEDTIME [facility] Last Admin: 08/18/17 19:29 Dose: 17 gm Potassium Chloride (Klor-Con M20) 20 meq PO TID [facility] Last Admin: 08/19/17 07:28 Dose: 20 meq Senna/Docusate Sodium (Senna Plus) 2 tab PO BID [facility] Last Admin: 08/19/17 07:29 Dose: 2 tab Sertraline HCl (Zoloft) 200 mg PO DAILY [facility] Last Admin: 08/19/17 07:30 Dose: 200 mg Sodium Chloride (Saline Flush) 10 ml FLUSH ASDIRECTED PRN PRN Reason: IV Use Last Admin: 08/19/17 07:28 Dose: 10 ml Tramadol HCl (Ultram) 50 mg PO Q6H PRN PRN Reason: Breakthrough Pain Triamcinolone Acetonide (Triamcinolone Acetonide 0.1% Crm) 0 gm TOP BID PRN PRN Reason: itching Discontinued Medications Acetaminophen (Tylenol) 650 mg PO Q6H PRN PRN Reason: Fever/Pain Albuterol (Proventil Neb Soln) 2.5 mg NEB Q4H PRN PRN Reason: Cough Carvedilol (Coreg) 6.25 mg PO ONETIME ONE Stop: 08/16/17 21:37 Last Admin: 08/16/17 21:57 Dose: 6.25 mg Carvedilol (Coreg) 3.125 mg PO ONETIME ONE Stop: 08/16/17 21:38 Last Admin: 08/16/17 21:58 Dose: 3.125 mg Carvedilol (Coreg) 6.25 mg PO BID [facility] Carvedilol (Coreg) 9.375 mg PO BIDMEALS [facility] Last Admin: 08/17/17 08:14 Dose: 9.375 mg Clonidine HCl (Catapres) 0.2 mg PO ONETIME ONE Stop: 08/16/17 21:37 Last Admin: 08/16/17 21:57 Dose: 0.2 mg Docusate Sodium (Colace) 100 mg PO BID [facility] Last Admin: 08/17/17 08:19 Dose: 100 mg Furosemide (Lasix) 40 mg PO DAILY [facility] Last Admin: 08/17/17 08:19 Dose: 40 mg Azithromycin 500 mg/ Sodium (Chloride) 250 mls @ 250 mls/hr IV ONETIME ONE Stop: 08/17/17 00:59 Last Admin: 08/17/17 01:19 Dose: 250 mls/hr Ceftriaxone Sodium 1 gm/ (Sodium Chloride) 100 mls @ 200 mls/hr IV ONETIME ONE Stop: 08/17/17 00:30 Last Admin: 08/17/17 00:47 Dose: 200 mls/hr Lorazepam (Ativan) 1 mg PO ONETIME ONE Stop: 08/16/17 21:39 Last Admin: 08/16/17 21:57 Dose: 1 mg Magnesium Citrate (Citrate Of Magnesia) 296 ml PO ONETIME ONE Stop: 08/18/17 11:55 Last Admin: 08/18/17 12:15 Dose: 296 ml Magnesium Hydroxide (Milk Of Magnesia) 30 ml PO ONETIME ONE Stop: 08/18/17 11:13 Last Admin: 08/18/17 13:44 Dose: Not Given Non-Formulary Medication (Capsaicin/Menthol [Salonpas Gel-Patch Hot]) 1 each TP BID PRN PRN Reason: Pain Non-Formulary Medication (Tramadol [Ultram Er]) 100 mg PO DAILY PRN PRN Reason: Pain (moderate 4-6) Polyethylene Glycol (Miralax) 17 gm PO ONETIME ONE Stop: 08/18/17 11:11 Last Admin: 08/18/17 13:44 Dose: Not Given Polyethylene Glycol (Miralax) 17 gm PO ONETIME ONE Stop: 08/18/17 11:15 Last Admin: 08/18/17 12:08 Dose: 17 gm Tramadol HCl (Ultram) 50 mg PO DAILY@1130 [facility] Tramadol HCl (Ultram) 100 mg PO BID [facility] Last Admin: 08/17/17 08:12 Dose: 100 mg Tramadol HCl (Ultram) 50 mg PO DAILY@1200 [facility] Triamcinolone Acetonide (Triamcinolone Acetonide 0.1% Crm) 0 gm TOP DAILY PRN PRN Reason: Itching - Exam Quality Assessment: Supplemental Oxygen (Which has been decreased to 2 L/m by nasal cannula with patient only on when necessary oxygen at longterm), DVT Prophylaxis (Subcutaneous Lovenox). No: Central Line/PICC, Urine Catheter General: Alert, Cooperative, No Acute Distress. No: Oriented (Stable moderate confusion) HEENT: Pupils Equal, Pupils Reactive, EOMI, Mucous Membr. Moist/Bivalve Neck: Supple, Trachea Midline, No JVD, No Thyromegaly, Carotid Bruit (Bilateral carotid bruitsmild). No: Lymphadenopathy Lungs: Normal Respiratory Effort, Rales (Improved mild bilateral basilar rales) . No: Rhonchi, Rub, Wheezing Cardiovascular: Regular Rate, Regular Rhythm, No Murmurs. No: Gallops, Rubs GI/Abdominal Exam: Normal Bowel Sounds, Soft, Non-Tender, No Organomegaly, No Distention, No Abnormal Bruit, No Mass, Other (Obese). No: Guarding (Male) Exam: Deferred Back Exam: Normal Inspection, Full Range of Motion. No: CVA Tenderness (L), CVA Tenderness (R), Muscle Spasm Extremities: Non-Tender, Normal Capillary Refill, Pedal Edema (Significantly improved bilateral trace+1 pedal/pretibial edema). No: No Pedal Edema, Madelyn' s Sign Peripheral Pulses: 1+: Dorsalis Pedis (L), Dorsalis Pedis (R), 2+: Radial (L), Radial (R) Skin: Warm, Dry, Intact. 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 No: Anxious, Depressed, Agitated, Hallucinations, Withdrawal Symptoms - Problem List & Annotations (1) Elevated WBC count SNOMED Code(s): 045087380 Code(s): D72.829 - ELEVATED WHITE BLOOD CELL COUNT, UNSPECIFIED Status: Acute Priority: High Current Visit: Yes Onset Date: ~08/16/17 Qualifiers: Leukocytosis type: bandemia Qualified Code(s): D72.825 - Bandemia Annotation/Comment:: Positive UA with culture and sensitivity results still pending with no evidence of sepsis and resolved leukocytosis today. Secondary to fever yesterday and persistent BNP elevation patient will require an additional day of hospitalization with probable hospital discharge back to longterm tomorrow by [facility] physician. Continue current medical therapy. Cannot rule out possible concomitant pneumonia as below however difficult to assess secondary to his CHF with chest x-ray report from radiologist not indicating any pneumonia. Sputum specimen yet to be obtained despite nebulizer treatments. Lactic acid normal to this point. Continue IV Zithromax and IV Rocephin. (2) Need for comfort care SNOMED Code(s): 891600732 Code(s): YMM4532 - Status: Chronic Priority: High Current Visit: Yes Annotation/Comment:: Continue comfort care only. Long-term prognosis poor. The patient's was updated concerning his current care and diagnoses yesterday morning during rounds. (3) UTI (urinary tract infection) SNOMED Code(s): 50616671 Code(s): N39.0 - URINARY TRACT INFECTION, SITE NOT SPECIFIED Status: Acute Priority: High Current Visit: Yes Onset Date: 08/17/17 Qualifiers: Urinary tract infection type: acute cystitis Hematuria presence: with hematuria Qualified Code(s): N30.01 - Acute cystitis with hematuria Annotation/Comment:: Continue IV Rocephin and IV Zithromax therapy. Resolved leukocytosis as above (4) Chest pain of uncertain etiology SNOMED Code(s): 47912600 Code(s): R07.89 - OTHER CHEST PAIN Status: Acute Priority: High Current Visit: Yes Onset Date: 08/17/17 Annotation/Comment:: No chest pain or anginal type symptoms. Negative workup for acute GA as above. BNP still significantly elevated despite IV Lasix therapy, although significantly improved dependent edema. No change in medical therapy for now. Repeat blood work and chest x-ray in the a.m. Note comfort care. (5) CAD (coronary artery disease) SNOMED Code(s): 30205068 Code(s): I25.10 - ATHSCL HEART DISEASE OF [place] CORONARY ARTERY W/O ANG PCTRS Status: Chronic Priority: Medium Current Visit: Yes Qualifiers: Coronary Disease-Associated Artery/Lesion type: [place] artery [place] vs. transplanted heart: [place] heart Associated angina: without angina Qualified Code(s): I25.10 - Atherosclerotic heart disease of [place] coronary artery without angina pectoris Annotation/Comment:: No anginal complaints, however patient is a poor historian. Note NO CODE STATUS and previous history of a non-STEMI. Long-term prognosis poor. (6) CHF (congestive heart failure) SNOMED Code(s): 51139613 Code(s): I50.9 - HEART FAILURE, UNSPECIFIED Status: Chronic Priority: High Current Visit: Yes Onset Date: ~09/26/16 Qualifiers: Congestive heart failure type: unspecified congestive heart failure type Congestive heart failure chronicity: acute on chronic Qualified Code(s): I50.9 - Heart failure, unspecified Annotation/Comment:: Known history of CHF. Note significantly improved dependent edema. No echocardiogram, etc. secondary to NO CODE STATUS. (7) COPD (chronic obstructive pulmonary disease) SNOMED Code(s): 54089517 Code(s): J44.9 - CHRONIC OBSTRUCTIVE PULMONARY DISEASE, UNSPECIFIED Status : Chronic Priority: Medium Current Visit: Yes Qualifiers: COPD type: COPD with acute lower respiratory infection Qualified Code(s): J44.0 - Chronic obstructive pulmonary disease with acute lower respiratory infection Annotation/Comment:: Cannot rule out concomitant beginning pneumonia as above with continuation of IV Rocephin and Zithromax. Continue nebulizer treatments as before. Blood cultures 2 are negative to this point. Continue incentive spirometry at discharge recommended with continuation of attempting to taper the patient off of O2 therapy with only when necessary O2 therapy at the longterm prior to admission (8) Anemia SNOMED Code(s): 988726685 Code(s): D64.9 - ANEMIA, UNSPECIFIED Status: Acute Priority: Medium Current Visit: Yes Onset Date: 08/17/17 Qualifiers: Anemia type: iron deficiency Iron deficiency anemia type: unspecified iron deficiency Qualified Code(s): D50.9 - Iron deficiency anemia, unspecified Annotation/Comment:: Stable anemia today with hemoglobin of 10.9. Initiate iron sulfate therapy with close follow-up by his regular providers recommended in about one month. Hemoccults negative to this point with H. pylori stool specimen pending. No evidence of abdominal pain or acute GI bleed. Iron studies positive for iron deficiency yesterday still pending with normal folic acid level and vitamin B-12 levels at that time. (9) Peptic reflux disease SNOMED Code(s): 35685070 Code(s): K21.9 - GASTRO-ESOPHAGEAL REFLUX DISEASE WITHOUT ESOPHAGITIS Status: Chronic Priority: Medium Current Visit: Yes Annotation/Comment:: Stable by history. Continue current medical therapy (10) Hypertension SNOMED Code(s): 93692514 Code(s): I10 - ESSENTIAL (PRIMARY) HYPERTENSION Status: Chronic Priority : Medium Current Visit: Yes Qualifiers: Hypertension type: essential hypertension Qualified Code(s): I10 - Essential (primary) hypertension Annotation/Comment:: Blood pressures significantly improved from time of admission. Continue to observe closely (11) Hypoalbuminemia SNOMED Code(s): 718546983 Code(s): E88.09 - OTH DISORDERS OF PLASMA-PROTEIN METABOLISM, NEC Status: Acute Priority: Medium Current Visit: Yes Onset Date: ~09/27/16 Annotation/Comment:: No hypoalbuminemia to this point. Continue to observe closely (12) Dementia SNOMED Code(s): 63464032 Code(s): F03.90 - UNSPECIFIED DEMENTIA WITHOUT BEHAVIORAL DISTURBANCE Status: Chronic Priority: Medium Current Visit: Yes Qualifiers: Dementia type: Alzheimer's disease Alzheimer's disease onset: late-onset Dementia behavioral disturbance: without behavioral disturbance Qualified Code (s): G30.1 - Alzheimer's disease with late onset; F02.80 - Dementia in other diseases classified elsewhere without behavioral disturbance; F02.80 - Dementia in other diseases classified elsewhere without behavioral disturbance; F02.80 - Dementia in other diseases classified elsewhere without behavioral disturbance Annotation/Comment:: Stable by history and back to normal baseline per history from his yesterday. Probable recently increased confusion secondary to his UTI. Mixed vascular and Alzheimers (13) Diabetes mellitus SNOMED Code(s): 01441386 Code(s): E11.9 - TYPE 2 DIABETES MELLITUS WITHOUT COMPLICATIONS Status: Chronic Priority: Medium Current Visit: Yes Qualifiers: Diabetes mellitus type: type 2 Diabetes mellitus complication status: with kidney complications Diabetes mellitus complication detail: with chronic kidney disease Diabetes mellitus fci insulin use: without fci use Annotation/Comment:: Continue to observe closely. Glycosylated hemoglobin of 6.1 % this a.m.. Twice a day Accu-Cheks and sliding scale are to be continued. Note newly diagnosed renal insufficiency and diabetic nephropathy with urine for microalbumin to be collected. Possible renal component to patient's anemia and in addition to iron deficiency. He was started on an BUDDY inhibitor during this hospitalization, which is beneficial both for his CHF and hypertension (14) Hyperlipidemia SNOMED Code(s): 92891798 Code(s): E78.5 - HYPERLIPIDEMIA, UNSPECIFIED Status: Chronic Priority: Medium Current Visit: Yes Qualifiers: Hyperlipidemia type: unspecified Qualified Code(s): E78.5 - Hyperlipidemia , unspecified Annotation/Comment:: Currently under therapy. Lipid panel yesterday morning was normal. (15) Hypothyroid SNOMED Code(s): 07623001 Code(s): E03.9 - HYPOTHYROIDISM, UNSPECIFIED Status: Chronic Priority: Medium Current Visit: Yes Qualifiers: Hypothyroidism type: acquired Qualified Code(s): E03.9 - Hypothyroidism, unspecified Annotation/Comment:: TSH during this hospitalization (16) Osteoarthritis SNOMED Code(s): 895316673 Code(s): M19.90 - UNSPECIFIED OSTEOARTHRITIS, UNSPECIFIED SITE Status: Chronic Priority: Medium Current Visit: Yes Qualifiers: Osteoarthritis location: multiple joints Osteoarthritis type: primary Qualified Code(s): M15.0 - Primary generalized (osteo)arthritis Annotation/Comment:: Stable by history (17) Renal insufficiency SNOMED Code(s): 345431864 Code(s): N28.9 - DISORDER OF KIDNEY AND URETER, UNSPECIFIED Status: Chronic Priority: Medium Current Visit: Yes Onset Date: 08/18/17 Annotation/Comment:: As above and continue to observe closely secondary to diuretic therapy - Problem List Review Problem List Initiated/Reviewed/Updated: Yes - My Orders Last 24 Hours: My Active Orders 08/18/17 11:10 RT Incentive Spirometry [RC] ASDIRECTED OCCULT BLOOD DIAGNOSTIC [OP] Stat 08/18/17 14:50 H PYLORI STOOL ANTIGEN [MREF] Routine OCCULT BLOOD DIAGNOSTIC [OP] Stat 08/18/17 19:49 Alum Hydrox/Mag Hydrox/Simeth [Mag-Al Plus] 30 ml PO DAILY PRN 08/18/17 20:00 Enoxaparin [Lovenox] 30 mg SUBCUT BEDTIME - Assessment Assessment:: As above - Plan Plan:: As above. Extensive precautions were given to the patient, who is in agreement with the treatment plan. The patient will require about 1 more day of inpatient/ acute care secondary to [phone] [id number] as [phone]
[2017-08-19] MEDS: Ferrous Sulfate 325 MG Tab PO SCH ×2 (11:15→17:14)
[2017-08-19] MEDS: Dextromethorphan/guaiFENesin 600-30 MG Tab.ER PO SCH (17:14)
[2017-08-19] MEDS: Lisinopril 10 MG Tab PO SCH (17:16)
[2017-08-19] MEDS: Polyethylene Glycol 3350 Powder 17 GM Packet PO SCH (20:20)
[2017-08-19] MEDS: Donepezil 10 MG Tab PO SCH (20:20)
[2017-08-19] MEDS: Melatonin 3 MG Tab PO SCH (20:20)
[2017-08-19] MEDS: atorvaSTATin 40 MG Tab PO SCH (20:20)
[2017-08-19] MEDS: LORazepam 1 MG Tab PO SCH (20:21)
[2017-08-19] MEDS: Enoxaparin 30 MG/0.3 ML Syringe SUBCUT SCH (20:21)
[2017-08-20] MEDS: cefTRIAXone 1 GM in Sodium Chloride 0.9% 100 ML IV SCH (00:11)
[2017-08-20] MEDS: Sodium Chloride 0.9% 10 ML Syringe FLUSH PRN ×3 (00:13→02:52)
[2017-08-20] MEDS: Azithromycin 500 MG in Sodium Chloride 0.9% 250 ML IV SCH (00:41)
[2017-08-20] MEDS: Albuterol/Ipratropium 3.0-0.5 MG/3 ML Neb Soln NEB SCH ×2 (02:52→07:46)
[2017-08-20] MEDS: Furosemide 40 MG/4 ML VIAL IVPUSH SCH ×2 (02:52→11:07)
[2017-08-20] MEDS: Acetaminophen 325 MG Tab PO PRN (03:06)
[2017-08-20] MEDS: traMADol 50 MG Tab PO PRN ×2 (03:06→09:07)
[2017-08-20] MEDS: LORazepam 0.5 MG Tab PO PRN (03:07)
[2017-08-20 06:34] VITALS: BP 154/55
[2017-08-20] MEDS: Loratadine 10 MG Tab PO SCH (07:41)
[2017-08-20] MEDS: cloNIDine 0.1 MG Tab PO SCH (07:41)
[2017-08-20] MEDS: lamoTRIgine 100 MG Tab PO SCH (07:41)
[2017-08-20] MEDS: Gabapentin 300 MG Cap PO SCH (07:42)
[2017-08-20] MEDS: LORazepam 0.5 MG Tab PO SCH (07:42)
[2017-08-20] MEDS: Ferrous Sulfate 325 MG Tab PO SCH (07:42)
[2017-08-20] MEDS: Clopidogrel 75 MG Tab PO SCH (07:42)
[2017-08-20] MEDS: Memantine 10 MG Tab PO SCH (07:42)
[2017-08-20] MEDS: Pantoprazole 40 MG Tab.CR PO SCH (07:42)
[2017-08-20] MEDS: Aspirin 81 MG Tab.Chew PO SCH (07:42)
[2017-08-20] MEDS: Dextromethorphan/guaiFENesin 600-30 MG Tab.ER PO SCH (07:42)
[2017-08-20] MEDS: Levothyroxine 25 MCG Tab PO SCH (07:43)
[2017-08-20] MEDS: amLODIPine 5 MG Tab PO SCH (07:43)
[2017-08-20] MEDS: Potassium Chloride 20 MEQ Tab.ER PO SCH (07:43)
[2017-08-20] MEDS: Sertraline 50 MG Tab PO SCH (07:43)
[2017-08-20] MEDS: Carvedilol 6.25 MG Tab PO SCH (07:44)
[2017-08-20] MEDS: metFORMIN 500 MG Tab PO SCH (07:44)
[2017-08-20] MEDS: Insuln Aspart Prot/Insulin Aspart 100 Units/ML 3 ML FlexPen SUBCUT SCH (07:45)
[2017-08-20 08:28] LABS: CHLORIDE,CL 101 mmol/L (98-107); SODIUM,NA 142 mmol/L (136-145)
--- NOTE | 2017-08-20 08:55 | PCM.DCSUM1 ---
Discharge Summary - Hospital Course HPI Initial Comments: See emergency room note/admission H&P Brief History: See emergency room note/admission H&P - Discharge Data Discharge Date: 08/20/17 Discharge Disposition: DC/Tfer to [facility] 65 Condition: Fair - Discharge Diagnosis/Problem(s) (1) Elevated WBC count SNOMED Code(s): 314264777 ICD Code: D72.829 - ELEVATED WHITE BLOOD CELL COUNT, UNSPECIFIED Status: Acute Priority: High Current Visit: Yes Onset Date: ~08/16/17 Problem Details: CBC is stable today with continued normal WBCs and resolution of previous significant leukocytosis. Hemoglobin improved to 11.2 this morning. Positive UA with culture and sensitivity results still pending with no evidence of sepsis and resolved leukocytosis as above. Secondary to fever yesterday and persistent BNP elevation patient did require an additional day of hospitalization with the patient ready for [facility]. Change to oral therapy including Lasix, Augmentin, etc. Zithromax will not be continued secondary to no current significant bronchitic symptoms. Close follow-up by regular provider as per discharge instructions. His long-term prognosis is still extremely poor with comfort care. We initially could not rule out possible concomitant pneumonia, however initially difficult to assess secondary to his CHF with previous chest x-ray report from radiologist not indicating any pneumonia. Sputum specimen could not be obtained despite nebulizer treatments, which will be continued at discharge. Lactic acid normal during this hospitalization. Qualifiers: Leukocytosis type: bandemia Qualified Code(s): D72.825 - Bandemia (2) Need for comfort care SNOMED Code(s): 465426936 ICD Code: [id number] - Status: Chronic Priority: High Current Visit: Yes Problem Details: Continue comfort care only. Long-term prognosis poor. The patient's was updated concerning his current care and diagnoses during this hospitalization and was in agreement to our treatment plan. (3) UTI (urinary tract infection) SNOMED Code(s): 96734818 ICD Code: N39.0 - URINARY TRACT INFECTION, SITE NOT SPECIFIED Status: Acute Priority: High Current Visit: Yes Onset Date: 08/17/17 Problem Details: UTI likely etiology of patient's significant leukocytosis as above. Unfortunately urine culture and sensitivity is still pending? Resolved leukocytosis as above Qualifiers: Urinary tract infection type: acute cystitis Hematuria presence: with hematuria Qualified Code(s): N30.01 - Acute cystitis with hematuria (4) Chest pain of uncertain etiology SNOMED Code(s): 28744900 ICD Code: R07.89 - OTHER CHEST PAIN Status: Acute Priority: High Current Visit: Yes Onset Date: 08/17/17 Problem Details: No chest pain or anginal type symptoms. Negative workup for acute RI during this hospitalization with artifactually elevated CK index this morning. BNP still significantly elevated despite IV Lasix therapy, although improved this morning and previous significantly improved dependent edema. Change to oral Lasix with lisinopril also initiated during this hospitalization. Note comfort care. (5) CAD (coronary artery disease) SNOMED Code(s): 42884087 ICD Code: I25.10 - ATHSCL HEART DISEASE OF [place] CORONARY ARTERY W/O ANG PCTRS Status: Chronic Priority: Medium Current Visit: Yes Problem Details: No anginal complaints, however patient is a poor historian. Note NO CODE STATUS and previous history of a non-STEMI. Long-term prognosis poor. Qualifiers: Coronary Disease-Associated Artery/Lesion type: [place] artery [place] vs. transplanted heart: [place] heart Associated angina: without angina Qualified Code(s): I25.10 - Atherosclerotic heart disease of [place] coronary artery without angina pectoris (6) CHF (congestive heart failure) SNOMED Code(s): 60526739 ICD Code: I50.9 - HEART FAILURE, UNSPECIFIED Status: Chronic Priority: High Current Visit: Yes Onset Date: ~09/26/16 Problem Details: Known history of CHF. Note significantly improved dependent edema as above. No echocardiogram, etc. secondary to NO CODE STATUS. Qualifiers: Congestive heart failure type: unspecified congestive heart failure type Congestive heart failure chronicity: acute on chronic Qualified Code(s): I50.9 - Heart failure, unspecified (7) COPD (chronic obstructive pulmonary disease) SNOMED Code(s): 54760657 ICD Code: J44.9 - CHRONIC OBSTRUCTIVE PULMONARY DISEASE, UNSPECIFIED Status : Chronic Priority: Medium Current Visit: Yes Problem Details: As above. Continue nebulizer treatments at discharge. Blood cultures 2 are negative to this point. Continue incentive spirometry at discharge recommended with continuation of attempting to taper the patient off of O2 therapy with only when necessary O2 therapy at the jail prior to admission Qualifiers: COPD type: COPD with acute lower respiratory infection Qualified Code(s): J44.0 - Chronic obstructive pulmonary disease with acute lower respiratory infection (8) Anemia SNOMED Code(s): 106115177 ICD Code: D64.9 - ANEMIA, UNSPECIFIED Status: Acute Priority: Medium Current Visit: Yes Onset Date: 08/17/17 Problem Details: Improved hemoglobin today as above. Iron sulfate therapy was initiated during this hospitalization with close follow-up by his regular providers and TIBC panel recommended in about one month. Hemoccults negative to this point with H. pylori stool specimen pending. No evidence of abdominal pain or acute GI bleed. Note Iron studies positive for iron deficiency with normal folic acid level and vitamin B-12 levels during this hospitalization. Qualifiers: Anemia type: iron deficiency Iron deficiency anemia type: unspecified iron deficiency Qualified Code(s): D50.9 - Iron deficiency anemia, unspecified (9) Peptic reflux disease SNOMED Code(s): 82802410 ICD Code: K21.9 - GASTRO-ESOPHAGEAL REFLUX DISEASE WITHOUT ESOPHAGITIS Status: Chronic Priority: Medium Current Visit: Yes Problem Details: Stable by history. Continue current medical therapy (10) Hypertension SNOMED Code(s): 76387176 ICD Code: I10 - ESSENTIAL (PRIMARY) HYPERTENSION Status: Chronic Priority : Medium Current Visit: Yes Problem Details: Blood pressures significantly improved from time of admission. Continue to observe closely with persistent mildly elevated blood pressure despite Lasix and lisinopril therapy Qualifiers: Hypertension type: essential hypertension Qualified Code(s): I10 - Essential (primary) hypertension (11) Hypoalbuminemia SNOMED Code(s): 283617526 ICD Code: E88.09 - [facility] DISORDERS OF PLASMA-PROTEIN METABOLISM, NEC Status: Acute Priority: Medium Current Visit: Yes Onset Date: ~09/27/16 Problem Details: Returned hypoalbuminemia reinitiation of previous high-protein Glucerna supplements as snacks twice a day. Continue to observe closely (12) Dementia SNOMED Code(s): 20891878 ICD Code: F03.90 - UNSPECIFIED DEMENTIA WITHOUT BEHAVIORAL DISTURBANCE Status: Chronic Priority: Medium Current Visit: Yes Problem Details: Stable by history and back to normal baseline per history from his . Probable recently increased confusion secondary to his UTI. Mixed vascular and Alzheimers Qualifiers: Dementia type: Alzheimer's disease Alzheimer's disease onset: late-onset Dementia behavioral disturbance: without behavioral disturbance Qualified Code (s): G30.1 - Alzheimer's disease with late onset; F02.80 - Dementia in other diseases classified elsewhere without behavioral disturbance; F02.80 - Dementia in other diseases classified elsewhere without behavioral disturbance; F02.80 - Dementia in other diseases classified elsewhere without behavioral disturbance (13) Diabetes mellitus SNOMED Code(s): 94866567 ICD Code: E11.9 - TYPE 2 DIABETES MELLITUS WITHOUT COMPLICATIONS Status: Chronic Priority: Medium Current Visit: Yes Problem Details: Continue to observe closely. Glycosylated hemoglobin of 6.1% yesterday. Twice a day Accu- Cheks and sliding scale were conducted during this hospitalization, although they will not be needed at discharge. Note newly diagnosed renal insufficiency and diabetic nephropathy with urine for microalbumin normal yesterday and improved creatinine/normal this morning. Possible renal component to patient's anemia in addition to iron deficiency. He was started on an BUDDY inhibitor during this hospitalization as above, which is beneficial both for his CHF and hypertension Qualifiers: Diabetes mellitus type: type 2 Diabetes mellitus complication status: with kidney complications Diabetes mellitus complication detail: with chronic kidney disease Diabetes mellitus keno terminal operator insulin use: without fdc use (14) Hyperlipidemia SNOMED Code(s): 43737783 ICD Code: E78.5 - HYPERLIPIDEMIA, UNSPECIFIED Status: Chronic Priority: Medium Current Visit: Yes Problem Details: Currently under therapy. Lipid panel was normal during this hospitalization with no change in medical therapy. Qualifiers: Hyperlipidemia type: unspecified Qualified Code(s): E78.5 - Hyperlipidemia , unspecified (15) Hypothyroid SNOMED Code(s): 13603924 ICD Code: E03.9 - HYPOTHYROIDISM, UNSPECIFIED Status: Chronic Priority: Medium Current Visit: Yes Problem Details: TSH during this hospitalization Qualifiers: Hypothyroidism type: acquired Qualified Code(s): E03.9 - Hypothyroidism, unspecified (16) Osteoarthritis SNOMED Code(s): 113076220 ICD Code: M19.90 - UNSPECIFIED OSTEOARTHRITIS, UNSPECIFIED SITE Status: Chronic Priority: Medium Current Visit: Yes Problem Details: Stable by history Qualifiers: Osteoarthritis location: multiple joints Osteoarthritis type: primary Qualified Code(s): M15.0 - Primary generalized (osteo)arthritis (17) Renal insufficiency SNOMED Code(s): 981875775 ICD Code: N28.9 - DISORDER OF KIDNEY AND URETER, UNSPECIFIED Status: Chronic Priority: Medium Current Visit: Yes Onset Date: 08/18/17 Problem Details: As above and continue to observe closely secondary to diuretic therapy - Patient Summary/Data Operative Procedure(s) Performed: None Complications: None Consults: None Labs Pending at D/C: Final urine culture and sensitivity results. In addition, final cultures 2 results are pending Recommended Follow-up Testing/Procedures: As per discharge instructions Planned Operative Procedure(s) after DC: None Hospital Course: The patient was initially admitted to observation status by [facility] physician for nonspecific chest pain with negative workup for acute RI. Note significant progressive leukocytosis during early portion of hospitalization likely secondary to UTI as above. Overall good response to aggressive IV Rocephin, IV Zithromax, and aggressive nebulizer therapy. Long-term prognosis poor as above. Patient did respond well to aggressive IV Lasix therapy for his CHF. No further complications during this hospitalization with treatment otherwise as above - Patient Instructions Diet: Fluid Restriction Diet, Other: 1800-calorie ADA, heart healthy, diverticulosis Fluid Restriction: 2000 mL Activity: As Tolerated (With strict fall precautions) Driving: Do Not Drive Showering/Bathing: May Shower Notify Provider of: Fever, Increased Pain, Nausea and/or Vomiting Other/Special Instructions: 1. Update regular provider in one week concerning patient's status, including blood work results, vital signs, etc. 2. CBC, comprehensive metabolic panel, troponin I, BNP, uric acid level, magnesium level , and catheter UA with culture and sensitivity in one week. 3. Continue NO CODE STATUS. 4. High-protein Glucerna supplements twice a day as snacks. 5. CBC and TIBC panel recommended in one month. 6. Continue as needed O2 therapy at 2 L/m by nasal cannula as before. 7. Vital Signs on an. every shift basis until update to his regular provider of patient's condition. in one week as above. 8. Incentive spirometry after each nebulizer treatment and as needed. 9. Otherwise continue previous standard jail orders - Discharge Plan Prescriptions/Med Rec: Albuterol/Ipratropium [DuoNeb 3.0-0.5 MG/3 ML] 3 ml NEB Q6HRRT #60 neb Amoxicillin/Potassium Clav [Augmentin 875-125 Tablet] 1 each PO BIDMEALS #14 tablet Dextromethorphan/guaiFENesin [Mucinex DM ER 600-30 MG] 1 tab PO BID #20 tab.er Furosemide [Lasix] 40 mg PO BID #20 tablet Lisinopril [Prinivil] 10 mg PO QPM #20 tablet Potassium Chloride [Klor-Con M20] 20 meq PO TID #30 tab.er Home Medications: Home Meds LORazepam [Ativan] 0.5 mg PO DAILY 06/11/14 [History] LORazepam [Ativan] 0.5 mg PO Q4HR PRN 06/11/14 [History] Memantine HCl [Namenda] 10 mg PO BID 06/11/14 [History] Multivitamin with Minerals [Multivitamins with Minerals] 2 tab PO BID 06/11/14 [ History] Sennosides/Docusate Sodium [Senna-S] 2 tab PO BID 06/11/14 [History] amLODIPine [Norvasc] 10 mg PO DAILY 06/11/14 [History] lamoTRIgine [Lamictal] 250 mg PO BID 06/11/14 [History] metFORMIN [Glucophage] 500 mg PO BID 06/11/14 [History] Aspirin [Silver Chewable Aspirin] 81 mg PO DAILY 09/25/16 [History] Bisacodyl [Dulcolax] 10 mg PO DAILY PRN 09/25/16 [History] Cholecalciferol (Vitamin D3) [Vitamin D3] 5,000 unit PO DAILY 09/25/16 [History] Docusate Sodium [Colace] 100 mg PO BID 09/25/16 [History] Donepezil HCl 20 mg PO BEDTIME 09/25/16 [History] Fluticasone Propionate [Flonase] 2 spray NASBOTH BID@1000,1600 09/25/16 [History ] Gabapentin [Neurontin] 600 mg PO TID 09/25/16 [History] Ipratropium [place] 2 spray NASBOTH TID 09/25/16 [History] Levothyroxine Sodium [Synthroid] 25 mcg PO DAILY 09/25/16 [History] Loratadine [Claritin] 10 mg PO DAILY 09/25/16 [History] Sertraline [Zoloft] 200 mg PO DAILY 09/25/16 [History] Triamcinolone Acetonide [Triamcinolone Acetonide 0.1% Crm] 1 applic TOP BID PRN 09/25/16 [History] Triamcinolone Acetonide [Triamcinolone Acetonide 0.1% Crm] 1 applic TOP DAILY PRN 09/25/16 [History] traMADol HCl [Tramadol HCl] 100 mg PO BID 09/25/16 [History] Albuterol [Proventil Neb Soln] 2.5 mg NEB Q4HR PRN 08/17/17 [History] Capsaicin/Menthol [Salonpas Gel-Patch Hot] 1 each TP BID PRN 08/17/17 [History] Clopidogrel [Plavix] 75 mg PO DAILY 08/17/17 [History] Ferrous Sulfate 325 mg PO BID 08/17/17 [History] LORazepam 1 mg PO BEDTIME 08/17/17 [History] Melatonin 6 mg PO BEDTIME 08/17/17 [History] Na Phos,M-B/Na Phos,Di-Ba [Fleet Enema] 118 ml RC ASDIRECTED PRN 08/17/17 [ History] Nitroglycerin [Nitrostat] 0.4 mg SL ASDIRECTED PRN 08/17/17 [History] Pantoprazole Sodium [Protonix] 40 mg PO DAILY 08/17/17 [History] Polyethylene Glycol 3350 [MiraLAX] 17 gm PO BEDTIME 08/17/17 [History] atorvaSTATin [Lipitor] 40 mg PO BEDTIME 08/17/17 [History] cloNIDine HCl [Catapres] 0.2 mg PO TID 08/17/17 [History] traMADol HCl [Tramadol HCl] 50 mg PO ACLUNCH 08/17/17 [History] traMADol HCl [Tramadol HCl] 100 mg PO DAILY PRN 08/17/17 [History] Non-Formulary Medication [NF Drug] 1 applic TOP DAILY 08/19/17 [History] Acetaminophen [Tylenol] 650 mg PO Q4H PRN tablet 08/20/17 [Rx] Albuterol/Ipratropium [DuoNeb 3.0-0.5 MG/3 ML] 3 ml NEB Q4HRRT PRN neb [Rx] Albuterol/Ipratropium [DuoNeb 3.0-0.5 MG/3 ML] 3 ml NEB Q6HRRT #60 neb 08/20/17 [Rx] Amoxicillin/Potassium Clav [Augmentin 875-125 Tablet] 1 each PO BIDMEALS #14 tablet 08/20/17 [Rx] Carvedilol [Coreg] 6.25 mg PO BIDMEALS tablet 08/20/17 [Rx] Dextromethorphan/guaiFENesin [Mucinex DM ER 600-30 MG] 1 tab PO BID #20 tab.er 08/20/17 [Rx] Furosemide [Lasix] 40 mg PO BID #20 tablet 08/20/17 [Rx] Lisinopril [Prinivil] 10 mg PO QPM #20 tablet 08/20/17 [Rx] Potassium Chloride [Klor-Con M20] 20 meq PO TID #30 tab.er 08/20/17 [Rx] Patient Handouts: Urinary Tract Infection, Adult, [id number], Heart Failure, [id number] Forms: ED Department Discharge Referrals: Sukhjinder Monsalve PROGRAM SERVICES ASSISTANT [Primary Care Provider] - - Discharge Summary/Plan Comment DC Time >30 min.: Yes (Coordination of care) Discharge Summary/Plan Comment: As above. Extensive precautions were given to the patient and jail staff , who are in agreement with the treatment plan. See Patient Instructions for further treatment and plan. - General Info Date of Service: 08/20/17 Admission Dx/Problem (Free Text: 1. Chest pain 2. Leukocytosis Subjective Update: Patient is a poor historian secondary to his OBS which is at baseline per history from his Functional Status: Reports: Pain Controlled, Tolerating Diet. Denies: Ambulating (Karen lift) Numeric/FACES Score: 0 - Review of Systems General: Reports: Weakness (Stable generalized including leg weakness). Denies : Fever, Fatigue, Malaise, Chills, Night Sweats, Appetite HEENT: Reports: No Symptoms. Denies: Eye Pain, Headaches, Post Nasal Drip, Sinus Congestion, Sore Throat, Rhinitis, Visual Changes Pulmonary: Reports: Cough. Denies: Shortness of Breath, Pleuritic Chest Pain, Sputum, Hemoptysis, Wheezing Cardiovascular: Reports: Edema (Improved dependent edema). Denies: Chest Pain, Palpitations, Dyspnea on Exertion, Orthopnea, PND, Lightheadedness Gastrointestinal: Denies: Abdominal Pain, Constipation, Decreased Appetite, Diarrhea, Difficulty Swallowing, Flatus, Hematochezia, Melena, Nausea, Vomiting Genitourinary: Reports: Incontinence. Denies: Dysuria, Frequency, Burning, Urgency, Retention, Flank Pain Musculoskeletal: Reports: No Symptoms. Denies: Neck Pain, Shoulder Pain, Arm Pain, Back Pain, Leg Pain Skin: Reports: Bruising (Secondary to IV and Lovenox). Denies: Diaphoresis Neurological: Reports: Confusion (Stable), Pre-Existing Deficit, Difficulty Walking, Weakness. Denies: Dizziness, Headache, Numbness, Paresthesia Psychiatric: Reports: Confusion. Denies: Depression, Anxiety, Agitation, Cravings, Hallucinations - Patient Data Vitals - Most Recent: Last Vital Signs Temp 36.3 C 08/20/17 06:00 Pulse 57 L 08/20/17 06:00 Resp 16 08/20/17 06:00 BP 154/55 H 08/20/17 07:43 Pulse Ox 98 08/20/17 06:00 Vital Signs - 24 hr 08/19/17 08/19/17 08/19/17 17:07 17:14 17:16 Temperature [ 37.6 C Temporal] Pulse, 68 Peripheral Pulse, 68 Peripheral [ Pulse Oximetry] Respiratory 16 Rate Blood Pressure 149/59 H 149/59 H Blood Pressure [Left Upper Arm ] Blood Pressure 149/59 H [Right Upper Arm] O2 Sat by Pulse 96 Oximetry O2 Sat by Pulse Oximetry [ Nasal Cannula] 08/19/17 08/20/17 08/20/17 23:00 00:00 00:32 Temperature [ 36.2 C Temporal] Pulse, Peripheral Pulse, 57 L Peripheral [ Pulse Oximetry] Respiratory 18 Rate Blood Pressure Blood Pressure 148/52 H [Left Upper Arm ] Blood Pressure [Right Upper Arm] O2 Sat by Pulse 97 97 Oximetry O2 Sat by Pulse 97 Oximetry [ Nasal Cannula] 08/20/17 08/20/17 08/20/17 06:00 07:41 07:43 Temperature [ 36.3 C Temporal] Pulse, Peripheral Pulse, 57 L Peripheral [ Pulse Oximetry] Respiratory 16 Rate Blood Pressure 154/55 H 154/55 H Blood Pressure [Left Upper Arm ] Blood Pressure 154/55 H [Right Upper Arm] O2 Sat by Pulse 98 Oximetry O2 Sat by Pulse Oximetry [ Nasal Cannula] Weight - Most Recent: 136.078 kg I&O - Last 24 hours: Intake & Output 08/19/17 08/20/17 08/20/17 22:59 06:59 14:59 Intake Total 400 450 Balance 400 450 Imaging Impressions - Last 24 hrs: quality assurance monitor body shows occasional borderline sinus bradycardia with average heart rate in the 60s to 80s with lowest pulses in the high 50s with no ectopy or arrhythmia Chest x-ray, portable, on day of discharge showed stable moderate cardiomegaly and mostly centralized CHF with borderline left pleural effusion versus left lower lobe atelectasis. Moderate COPD changes noted with no pulmonary infiltrates, pneumothorax, etc. Lab Results - Last 24 hrs: Laboratory Results - last 24 hr 08/19/17 08/19/17 08/20/17 Range/Units 11:30 17:06 07:15 WBC 7.8 (4.0-10.2) K/uL RBC 3.90 L (4.33-5.41) M/uL Hgb 11.2 L (13.1-16.8) g/dL Hct 35.2 L (39.0-49.0) % MCV 90.3 (84.0-98.0) fL MCH 28.7 (28.2-33.3) pg MCHC 31.8 (31.7-36.0) g/dL RDW 15.4 H (11.2-14.1) % Plt Count 235 (150-350) K/uL Neut % (Auto) 57.1 (45.0-80.0) % Lymph % (Auto) 25.0 (10.0-50.0) % [place] % (Auto) 11.7 (2.0-14.0) % Eos % (Auto) 5.8 H (0.0-5.0) % Baso % (Auto) 0.4 (0.0-2.0) % Neut # (Auto) 4.42 (1.40-7.00) K/uL Lymph # (Auto) 1.94 (0.50-3.50) K/uL [place] # (Auto) 0.91 (0.00-1.00) K/uL Eos # (Auto) 0.45 (0.00-0.50) K/uL Baso # (Auto) 0.03 (0.00-0.20) K/uL Sodium (136-145) mmol/L Potassium (3.5-5.1) mmol/L Chloride (98-107) mmol/L Carbon Dioxide (21.0-32.0) mmol/L BUN (7-18) mg/dL Creatinine (0.51-1.17) mg/dL Est Cr Clr Drug Dosing mL/min Estimated GFR (MDRD) mL/min Glucose (74-106) mg/dL POC Glucose 109 (65-110) mg/dl Calcium (8.5-10.1) mg/dL Total Bilirubin (0.2-1.0) mg/dL AST (15-37) U/L ALT (12-78) U/L Alkaline Phosphatase (46-116) IU/L Creatine Kinase (26-308) U/L Creatine Kinase Index (0.0-2.5) % CK-MB (CK-2) (0.00-3.60) ng/mL Troponin I (0.000-0.056) ng/mL NT-Pro-B Natriuret Pep (0-125) pg/mL Total Protein (6.4-8.2) g/dL Albumin (3.4-5.0) g/dL Ur Random Microalbumin 20 (NEGATIVE) mg/L 08/20/17 Range/Units 07:15 WBC (4.0-10.2) K/uL RBC (4.33-5.41) M/uL Hgb (13.1-16.8) g/dL Hct (39.0-49.0) % MCV (84.0-98.0) fL MCH (28.2-33.3) pg MCHC (31.7-36.0) g/dL RDW (11.2-14.1) % Plt Count (150-350) K/uL Neut % (Auto) (45.0-80.0) % Lymph % (Auto) (10.0-50.0) % [place] % (Auto) (2.0-14.0) % Eos % (Auto) (0.0-5.0) % Baso % (Auto) (0.0-2.0) % Neut # (Auto) (1.40-7.00) K/uL Lymph # (Auto) (0.50-3.50) K/uL [place] # (Auto) (0.00-1.00) K/uL Eos # (Auto) (0.00-0.50) K/uL Baso # (Auto) (0.00-0.20) K/uL Sodium 142 (136-145) mmol/L Potassium 4.1 (3.5-5.1) mmol/L Chloride 101 (98-107) mmol/L Carbon Dioxide 33.4 H (21.0-32.0) mmol/L BUN 27 H (7-18) mg/dL Creatinine 1.16 (0.51-1.17) mg/dL Est Cr Clr Drug Dosing 60.48 mL/min Estimated GFR (MDRD) > 60 mL/min Glucose 116 H (74-106) mg/dL POC Glucose (65-110) mg/dl Calcium 9.8 (8.5-10.1) mg/dL Total Bilirubin 0.2 (0.2-1.0) mg/dL AST 19 (15-37) U/L ALT 23 (12-78) U/L Alkaline Phosphatase 84 (46-116) IU/L Creatine Kinase 49 (26-308) U/L Creatine Kinase Index 3.1 H (0.0-2.5) % CK-MB (CK-2) 1.50 (0.00-3.60) ng/mL Troponin I 0.000 (0.000-0.056) ng/mL NT-Pro-B Natriuret Pep 1142 H (0-125) pg/mL Total Protein 6.7 (6.4-8.2) g/dL Albumin 2.9 L (3.4-5.0) g/dL Ur Random Microalbumin (NEGATIVE) mg/L Laboratory Tests 08/16/17 08/16/17 08/16/17 Range/Units 21:15 21:15 21:15 WBC 18.7 H (4.0-10.2) K/uL RBC 4.42 (4.33-5.41) M/uL Hgb 12.5 L D (13.1-16.8) g/dL Hct 39.5 (39.0-49.0) % MCV 89.4 (84.0-98.0) fL MCH 28.3 (28.2-33.3) pg MCHC 31.6 L (31.7-36.0) g/dL RDW 15.4 H (11.2-14.1) % Plt Count 206 D (150-350) K/uL Neut % (Auto) 82.1 H (45.0-80.0) % Lymph % (Auto) 8.5 L (10.0-50.0) % [place] % (Auto) 7.4 (2.0-14.0) % Eos % (Auto) 1.8 (0.0-5.0) % Baso % (Auto) 0.2 (0.0-2.0) % Neut # (Auto) 15.33 H (1.40-7.00) K/uL Lymph # (Auto) 1.59 (0.50-3.50) K/uL [place] # (Auto) 1.39 H (0.00-1.00) K/uL Eos # (Auto) 0.33 (0.00-0.50) K/uL Baso # (Auto) 0.04 (0.00-0.20) K/uL D-Dimer, Quantitative 212 (0-400) ng/mL Sodium 140 (136-145) mmol/L Potassium 4.1 (3.5-5.1) mmol/L Chloride 103 (98-107) mmol/L Carbon Dioxide 26.3 (21.0-32.0) mmol/L BUN 21 H (7-18) mg/dL Creatinine 1.05 (0.51-1.17) mg/dL Est Cr Clr Drug Dosing TNP Estimated GFR (MDRD) > 60 mL/min Glucose 118 H (74-106) mg/dL POC Glucose (65-110) mg/dl Hemoglobin A1c (4.3-5.7) % Lactic Acid (0.4-2.0) mmol/L Uric Acid (2.6-7.2) mg/dL Calcium 9.3 (8.5-10.1) mg/dL Magnesium (1.8-2.4) mg/dL Iron (50-175) ug/dL TIBC (250-450) ug/dL % Saturation Total Bilirubin 0.3 (0.2-1.0) mg/dL AST 23 (15-37) U/L ALT 23 (12-78) U/L Alkaline Phosphatase 144 H (46-116) IU/L Creatine Kinase 58 (26-308) U/L Creatine Kinase Index 3.6 H (0.0-2.5) % CK-MB (CK-2) 2.10 (0.00-3.60) ng/mL Troponin I 0.003 (0.000-0.056) ng/mL NT-Pro-B Natriuret Pep (0-125) pg/mL Total Protein 7.0 (6.4-8.2) g/dL Albumin 3.7 (3.4-5.0) g/dL Triglycerides (30-150) mg/dL Cholesterol (100-200) mg/dL LDL Cholesterol, Calc (0-100) mg/dL HDL Cholesterol (40-60) mg/dL Vitamin B12 (193-986) pg/mL Folate (8.6-58.9) ng/mL TSH, Ultra Sensitive (0.358-3.740) mIU/mL Specimen Type Urine Color Urine Appearance Urine pH (5.0-9.0) Ur Specific [place] (1.005-1.030) Urine Protein (NEGATIVE) mg/dL Urine Glucose (UA) (NEGATIVE) mg/dL Urine Ketones (NEGATIVE) mg/dL Urine Occult Blood (NEGATIVE) Urine Nitrite (NEGATIVE) Urine Bilirubin (NEGATIVE) Urine Urobilinogen (0.2-1.0) E.U./dL Ur Leukocyte Esterase (NEGATIVE) Urine RBC /HPF Urine WBC /HPF Ur Epithelial Cells /LPF Urine Bacteria (NONE TO FEW) /HPF Ur Random Microalbumin (NEGATIVE) mg/L 08/17/17 08/17/17 08/17/17 Range/Units 06:10 06:10 06:10 WBC 19.3 H (4.0-10.2) K/uL RBC 3.83 L (4.33-5.41) M/uL Hgb 11.0 L D (13.1-16.8) g/dL Hct 34.5 L (39.0-49.0) % MCV 90.1 (84.0-98.0) fL MCH 28.7 (28.2-33.3) pg MCHC 31.9 (31.7-36.0) g/dL RDW 15.6 H (11.2-14.1) % Plt Count 196 (150-350) K/uL Neut % (Auto) 76.1 (45.0-80.0) % Lymph % (Auto) 10.2 (10.0-50.0) % [place] % (Auto) 13.1 (2.0-14.0) % Eos % (Auto) 0.3 (0.0-5.0) % Baso % (Auto) 0.3 (0.0-2.0) % Neut # (Auto) 14.70 H (1.40-7.00) K/uL Lymph # (Auto) 1.98 (0.50-3.50) K/uL [place] # (Auto) 2.53 H (0.00-1.00) K/uL Eos # (Auto) 0.05 (0.00-0.50) K/uL Baso # (Auto) 0.06 (0.00-0.20) K/uL D-Dimer, Quantitative (0-400) ng/mL Sodium (136-145) mmol/L Potassium (3.5-5.1) mmol/L Chloride (98-107) mmol/L Carbon Dioxide (21.0-32.0) mmol/L BUN (7-18) mg/dL Creatinine (0.51-1.17) mg/dL Est Cr Clr Drug Dosing Estimated GFR (MDRD) mL/min Glucose (74-106) mg/dL POC Glucose (65-110) mg/dl Hemoglobin A1c (4.3-5.7) % Lactic Acid 1.6 (0.4-2.0) mmol/L Uric Acid (2.6-7.2) mg/dL Calcium (8.5-10.1) mg/dL Magnesium (1.8-2.4) mg/dL Iron (50-175) ug/dL TIBC (250-450) ug/dL % Saturation Total Bilirubin (0.2-1.0) mg/dL AST (15-37) U/L ALT (12-78) U/L Alkaline Phosphatase (46-116) IU/L Creatine Kinase 31 (26-308) U/L Creatine Kinase Index 3.2 H (0.0-2.5) % CK-MB (CK-2) 1.00 (0.00-3.60) ng/mL Troponin I 0.013 (0.000-0.056) ng/mL NT-Pro-B Natriuret Pep (0-125) pg/mL Total Protein (6.4-8.2) g/dL Albumin (3.4-5.0) g/dL Triglycerides (30-150) mg/dL Cholesterol (100-200) mg/dL LDL Cholesterol, Calc (0-100) mg/dL HDL Cholesterol (40-60) mg/dL Vitamin B12 (193-986) pg/mL Folate (8.6-58.9) ng/mL TSH, Ultra Sensitive (0.358-3.740) mIU/mL Specimen Type Urine Color Urine Appearance Urine pH (5.0-9.0) Ur Specific [place] (1.005-1.030) Urine Protein (NEGATIVE) mg/dL Urine Glucose (UA) (NEGATIVE) mg/dL Urine Ketones (NEGATIVE) mg/dL Urine Occult Blood (NEGATIVE) Urine Nitrite (NEGATIVE) Urine Bilirubin (NEGATIVE) Urine Urobilinogen (0.2-1.0) E.U./dL Ur Leukocyte Esterase (NEGATIVE) Urine RBC /HPF Urine WBC /HPF Ur Epithelial Cells /LPF Urine Bacteria (NONE TO FEW) /HPF Ur Random Microalbumin (NEGATIVE) mg/L 08/17/17 08/17/17 08/17/17 Range/Units 11:40 16:57 20:00 WBC (4.0-10.2) K/uL RBC (4.33-5.41) M/uL Hgb (13.1-16.8) g/dL Hct (39.0-49.0) % MCV (84.0-98.0) fL MCH (28.2-33.3) pg MCHC (31.7-36.0) g/dL RDW (11.2-14.1) % Plt Count (150-350) K/uL Neut % (Auto) (45.0-80.0) % Lymph % (Auto) (10.0-50.0) % [place] % (Auto) (2.0-14.0) % Eos % (Auto) (0.0-5.0) % Baso % (Auto) (0.0-2.0) % Neut # (Auto) (1.40-7.00) K/uL Lymph # (Auto) (0.50-3.50) K/uL [place] # (Auto) (0.00-1.00) K/uL Eos # (Auto) (0.00-0.50) K/uL Baso # (Auto) (0.00-0.20) K/uL D-Dimer, Quantitative (0-400) ng/mL Sodium (136-145) mmol/L Potassium (3.5-5.1) mmol/L Chloride (98-107) mmol/L Carbon Dioxide (21.0-32.0) mmol/L BUN (7-18) mg/dL Creatinine (0.51-1.17) mg/dL Est Cr Clr Drug Dosing Estimated GFR (MDRD) mL/min Glucose (74-106) mg/dL POC Glucose 161 H (65-110) mg/dl Hemoglobin A1c (4.3-5.7) % Lactic Acid (0.4-2.0) mmol/L Uric Acid (2.6-7.2) mg/dL Calcium (8.5-10.1) mg/dL Magnesium (1.8-2.4) mg/dL Iron (50-175) ug/dL TIBC (250-450) ug/dL % Saturation Total Bilirubin (0.2-1.0) mg/dL AST (15-37) U/L ALT (12-78) U/L Alkaline Phosphatase (46-116) IU/L Creatine Kinase 24 L (26-308) U/L Creatine Kinase Index 3.3 H (0.0-2.5) % CK-MB (CK-2) 0.80 (0.00-3.60) ng/mL Troponin I 0.007 (0.000-0.056) ng/mL NT-Pro-B Natriuret Pep 2270 H (0-125) pg/mL Total Protein (6.4-8.2) g/dL Albumin (3.4-5.0) g/dL Triglycerides (30-150) mg/dL Cholesterol (100-200) mg/dL LDL Cholesterol, Calc (0-100) mg/dL HDL Cholesterol (40-60) mg/dL Vitamin B12 (193-986) pg/mL Folate (8.6-58.9) ng/mL TSH, Ultra Sensitive (0.358-3.740) mIU/mL Specimen Type [place] Urine Color Yellow Urine Appearance Clear Urine pH 6.0 (5.0-9.0) Ur Specific [place] 1.010 (1.005-1.030) Urine Protein Negative (NEGATIVE) mg/dL Urine Glucose (UA) Negative (NEGATIVE) mg/dL Urine Ketones Negative (NEGATIVE) mg/dL Urine Occult Blood Negative (NEGATIVE) Urine Nitrite Negative (NEGATIVE) Urine Bilirubin Negative (NEGATIVE) Urine Urobilinogen 0.2 (0.2-1.0) E.U./dL Ur Leukocyte Esterase Moderate H (NEGATIVE) Urine RBC 0-5 /HPF Urine WBC 30-40 H /HPF Ur Epithelial Cells Rare /LPF Urine Bacteria Rare (NONE TO FEW) /HPF Ur Random Microalbumin (NEGATIVE) mg/L 08/18/17 08/18/17 08/18/17 Range/Units 07:20 07:20 07:20 WBC 11.6 H (4.0-10.2) K/uL RBC 3.70 L (4.33-5.41) M/uL Hgb 10.6 L (13.1-16.8) g/dL Hct 33.5 L (39.0-49.0) % MCV 90.5 (84.0-98.0) fL MCH 28.6 (28.2-33.3) pg MCHC 31.6 L (31.7-36.0) g/dL RDW 16.2 H (11.2-14.1) % Plt Count 178 (150-350) K/uL Neut % (Auto) 64.3 (45.0-80.0) % Lymph % (Auto) 19.3 (10.0-50.0) % [place] % (Auto) 14.5 H (2.0-14.0) % Eos % (Auto) 1.6 (0.0-5.0) % Baso % (Auto) 0.3 (0.0-2.0) % Neut # (Auto) 7.47 H (1.40-7.00) K/uL Lymph # (Auto) 2.24 (0.50-3.50) K/uL [place] # (Auto) 1.68 H (0.00-1.00) K/uL Eos # (Auto) 0.18 (0.00-0.50) K/uL Baso # (Auto) 0.03 (0.00-0.20) K/uL D-Dimer, Quantitative (0-400) ng/mL Sodium 140 (136-145) mmol/L Potassium 3.9 (3.5-5.1) mmol/L Chloride 102 (98-107) mmol/L Carbon Dioxide 31.0 (21.0-32.0) mmol/L BUN 27 H (7-18) mg/dL Creatinine 1.28 H (0.51-1.17) mg/dL Est Cr Clr Drug Dosing 54.81 Estimated GFR (MDRD) 55 mL/min Glucose 116 H (74-106) mg/dL POC Glucose (65-110) mg/dl Hemoglobin A1c (4.3-5.7) % Lactic Acid 1.0 (0.4-2.0) mmol/L Uric Acid 6.0 (2.6-7.2) mg/dL Calcium 9.5 (8.5-10.1) mg/dL Magnesium 1.8 (1.8-2.4) mg/dL Iron (50-175) ug/dL TIBC (250-450) ug/dL % Saturation Total Bilirubin 0.3 (0.2-1.0) mg/dL AST 16 (15-37) U/L ALT 22 (12-78) U/L Alkaline Phosphatase 85 (46-116) IU/L Creatine Kinase 24 L (26-308) U/L Creatine Kinase Index 2.5 (0.0-2.5) % CK-MB (CK-2) 0.60 (0.00-3.60) ng/mL Troponin I 0.000 (0.000-0.056) ng/mL NT-Pro-B Natriuret Pep (0-125) pg/mL Total Protein 6.3 L (6.4-8.2) g/dL Albumin 2.9 L (3.4-5.0) g/dL Triglycerides 78 (30-150) mg/dL Cholesterol 107 (100-200) mg/dL LDL Cholesterol, Calc 44 (0-100) mg/dL HDL Cholesterol 47 (40-60) mg/dL Vitamin B12 529 (193-986) pg/mL Folate 19.5 (8.6-58.9) ng/mL TSH, Ultra Sensitive 2.309 (0.358-3.740) mIU/mL Specimen Type Urine Color Urine Appearance Urine pH (5.0-9.0) Ur Specific [place] (1.005-1.030) Urine Protein (NEGATIVE) mg/dL Urine Glucose (UA) (NEGATIVE) mg/dL Urine Ketones (NEGATIVE) mg/dL Urine Occult Blood (NEGATIVE) Urine Nitrite (NEGATIVE) Urine Bilirubin (NEGATIVE) Urine Urobilinogen (0.2-1.0) E.U./dL Ur Leukocyte Esterase (NEGATIVE) Urine RBC /HPF Urine WBC /HPF Ur Epithelial Cells /LPF Urine Bacteria (NONE TO FEW) /HPF Ur Random Microalbumin (NEGATIVE) mg/L 08/18/17 08/18/17 08/18/17 Range/Units 07:20 07:20 07:42 WBC (4.0-10.2) K/uL RBC (4.33-5.41) M/uL Hgb (13.1-16.8) g/dL Hct (39.0-49.0) % MCV (84.0-98.0) fL MCH (28.2-33.3) pg MCHC (31.7-36.0) g/dL RDW (11.2-14.1) % Plt Count (150-350) K/uL Neut % (Auto) (45.0-80.0) % Lymph % (Auto) (10.0-50.0) % [place] % (Auto) (2.0-14.0) % Eos % (Auto) (0.0-5.0) % Baso % (Auto) (0.0-2.0) % Neut # (Auto) (1.40-7.00) K/uL Lymph # (Auto) (0.50-3.50) K/uL [place] # (Auto) (0.00-1.00) K/uL Eos # (Auto) (0.00-0.50) K/uL Baso # (Auto) (0.00-0.20) K/uL D-Dimer, Quantitative (0-400) ng/mL Sodium (136-145) mmol/L Potassium (3.5-5.1) mmol/L Chloride (98-107) mmol/L Carbon Dioxide (21.0-32.0) mmol/L BUN (7-18) mg/dL Creatinine (0.51-1.17) mg/dL Est Cr Clr Drug Dosing Estimated GFR (MDRD) mL/min Glucose (74-106) mg/dL POC Glucose 116 H (65-110) mg/dl Hemoglobin A1c 6.1 H (4.3-5.7) % Lactic Acid (0.4-2.0) mmol/L Uric Acid (2.6-7.2) mg/dL Calcium (8.5-10.1) mg/dL Magnesium (1.8-2.4) mg/dL Iron 13 L (50-175) ug/dL TIBC 247 L (250-450) ug/dL % Saturation 5.27632 Total Bilirubin (0.2-1.0) mg/dL AST (15-37) U/L ALT (12-78) U/L Alkaline Phosphatase (46-116) IU/L Creatine Kinase (26-308) U/L Creatine Kinase Index (0.0-2.5) % CK-MB (CK-2) (0.00-3.60) ng/mL Troponin I (0.000-0.056) ng/mL NT-Pro-B Natriuret Pep (0-125) pg/mL Total Protein (6.4-8.2) g/dL Albumin (3.4-5.0) g/dL Triglycerides (30-150) mg/dL Cholesterol (100-200) mg/dL LDL Cholesterol, Calc (0-100) mg/dL HDL Cholesterol (40-60) mg/dL Vitamin B12 (193-986) pg/mL Folate (8.6-58.9) ng/mL TSH, Ultra Sensitive (0.358-3.740) mIU/mL Specimen Type Urine Color Urine Appearance Urine pH (5.0-9.0) Ur Specific [place] (1.005-1.030) Urine Protein (NEGATIVE) mg/dL Urine Glucose (UA) (NEGATIVE) mg/dL Urine Ketones (NEGATIVE) mg/dL Urine Occult Blood (NEGATIVE) Urine Nitrite (NEGATIVE) Urine Bilirubin (NEGATIVE) Urine Urobilinogen (0.2-1.0) E.U./dL Ur Leukocyte Esterase (NEGATIVE) Urine RBC /HPF Urine WBC /HPF Ur Epithelial Cells /LPF Urine Bacteria (NONE TO FEW) /HPF Ur Random Microalbumin (NEGATIVE) mg/L 08/18/17 08/19/17 08/19/17 Range/Units 17:22 07:07 07:25 WBC 8.2 (4.0-10.2) K/uL RBC 3.86 L (4.33-5.41) M/uL Hgb 10.9 L (13.1-16.8) g/dL Hct 35.2 L (39.0-49.0) % MCV 91.2 (84.0-98.0) fL MCH 28.2 (28.2-33.3) pg MCHC 31.0 L (31.7-36.0) g/dL RDW 15.7 H (11.2-14.1) % Plt Count 187 (150-350) K/uL Neut % (Auto) 61.2 (45.0-80.0) % Lymph % (Auto) 20.2 (10.0-50.0) % [place] % (Auto) 12.7 (2.0-14.0) % Eos % (Auto) 5.4 H (0.0-5.0) % Baso % (Auto) 0.5 (0.0-2.0) % Neut # (Auto) 5.02 (1.40-7.00) K/uL Lymph # (Auto) 1.66 (0.50-3.50) K/uL [place] # (Auto) 1.04 H (0.00-1.00) K/uL Eos # (Auto) 0.44 (0.00-0.50) K/uL Baso # (Auto) 0.04 (0.00-0.20) K/uL D-Dimer, Quantitative (0-400) ng/mL Sodium (136-145) mmol/L Potassium (3.5-5.1) mmol/L Chloride (98-107) mmol/L Carbon Dioxide (21.0-32.0) mmol/L BUN (7-18) mg/dL Creatinine (0.51-1.17) mg/dL Est Cr Clr Drug Dosing Estimated GFR (MDRD) mL/min Glucose (74-106) mg/dL POC Glucose 216 H 99 (65-110) mg/dl Hemoglobin A1c (4.3-5.7) % Lactic Acid (0.4-2.0) mmol/L Uric Acid (2.6-7.2) mg/dL Calcium (8.5-10.1) mg/dL Magnesium (1.8-2.4) mg/dL Iron (50-175) ug/dL TIBC (250-450) ug/dL % Saturation Total Bilirubin (0.2-1.0) mg/dL AST (15-37) U/L ALT (12-78) U/L Alkaline Phosphatase (46-116) IU/L Creatine Kinase (26-308) U/L Creatine Kinase Index (0.0-2.5) % CK-MB (CK-2) (0.00-3.60) ng/mL Troponin I (0.000-0.056) ng/mL NT-Pro-B Natriuret Pep (0-125) pg/mL Total Protein (6.4-8.2) g/dL Albumin (3.4-5.0) g/dL Triglycerides (30-150) mg/dL Cholesterol (100-200) mg/dL LDL Cholesterol, Calc (0-100) mg/dL HDL Cholesterol (40-60) mg/dL Vitamin B12 (193-986) pg/mL Folate (8.6-58.9) ng/mL TSH, Ultra Sensitive (0.358-3.740) mIU/mL Specimen Type Urine Color Urine Appearance Urine pH (5.0-9.0) Ur Specific [place] (1.005-1.030) Urine Protein (NEGATIVE) mg/dL Urine Glucose (UA) (NEGATIVE) mg/dL Urine Ketones (NEGATIVE) mg/dL Urine Occult Blood (NEGATIVE) Urine Nitrite (NEGATIVE) Urine Bilirubin (NEGATIVE) Urine Urobilinogen (0.2-1.0) E.U./dL Ur Leukocyte Esterase (NEGATIVE) Urine RBC /HPF Urine WBC /HPF Ur Epithelial Cells /LPF Urine Bacteria (NONE TO FEW) /HPF Ur Random Microalbumin (NEGATIVE) mg/L 08/19/17 08/19/17 08/19/17 Range/Units 07:25 11:30 17:06 WBC (4.0-10.2) K/uL RBC (4.33-5.41) M/uL Hgb (13.1-16.8) g/dL Hct (39.0-49.0) % MCV (84.0-98.0) fL MCH (28.2-33.3) pg MCHC (31.7-36.0) g/dL RDW (11.2-14.1) % Plt Count (150-350) K/uL Neut % (Auto) (45.0-80.0) % Lymph % (Auto) (10.0-50.0) % [place] % (Auto) (2.0-14.0) % Eos % (Auto) (0.0-5.0) % Baso % (Auto) (0.0-2.0) % Neut # (Auto) (1.40-7.00) K/uL Lymph # (Auto) (0.50-3.50) K/uL [place] # (Auto) (0.00-1.00) K/uL Eos # (Auto) (0.00-0.50) K/uL Baso # (Auto) (0.00-0.20) K/uL D-Dimer, Quantitative (0-400) ng/mL Sodium 143 (136-145) mmol/L Potassium 4.3 (3.5-5.1) mmol/L Chloride 104 (98-107) mmol/L Carbon Dioxide 32.6 H (21.0-32.0) mmol/L BUN 30 H (7-18) mg/dL Creatinine 1.23 H (0.51-1.17) mg/dL Est Cr Clr Drug Dosing 57.04 Estimated GFR (MDRD) 57 mL/min Glucose 116 H (74-106) mg/dL POC Glucose 109 (65-110) mg/dl Hemoglobin A1c (4.3-5.7) % Lactic Acid (0.4-2.0) mmol/L Uric Acid (2.6-7.2) mg/dL Calcium 9.7 (8.5-10.1) mg/dL Magnesium (1.8-2.4) mg/dL Iron (50-175) ug/dL TIBC (250-450) ug/dL % Saturation Total Bilirubin (0.2-1.0) mg/dL AST (15-37) U/L ALT (12-78) U/L Alkaline Phosphatase (46-116) IU/L Creatine Kinase (26-308) U/L Creatine Kinase Index (0.0-2.5) % CK-MB (CK-2) (0.00-3.60) ng/mL Troponin I (0.000-0.056) ng/mL NT-Pro-B Natriuret Pep 1497 H (0-125) pg/mL Total Protein (6.4-8.2) g/dL Albumin (3.4-5.0) g/dL Triglycerides (30-150) mg/dL Cholesterol (100-200) mg/dL LDL Cholesterol, Calc (0-100) mg/dL HDL Cholesterol (40-60) mg/dL Vitamin B12 (193-986) pg/mL Folate (8.6-58.9) ng/mL TSH, Ultra Sensitive (0.358-3.740) mIU/mL Specimen Type Urine Color Urine Appearance Urine pH (5.0-9.0) Ur Specific [place] (1.005-1.030) Urine Protein (NEGATIVE) mg/dL Urine Glucose (UA) (NEGATIVE) mg/dL Urine Ketones (NEGATIVE) mg/dL Urine Occult Blood (NEGATIVE) Urine Nitrite (NEGATIVE) Urine Bilirubin (NEGATIVE) Urine Urobilinogen (0.2-1.0) E.U./dL Ur Leukocyte Esterase (NEGATIVE) Urine RBC /HPF Urine WBC /HPF Ur Epithelial Cells /LPF Urine Bacteria (NONE TO FEW) /HPF Ur Random Microalbumin 20 (NEGATIVE) mg/L 08/20/17 08/20/17 Range/Units 07:15 07:15 WBC 7.8 (4.0-10.2) K/uL RBC 3.90 L (4.33-5.41) M/uL Hgb 11.2 L (13.1-16.8) g/dL Hct 35.2 L (39.0-49.0) % MCV 90.3 (84.0-98.0) fL MCH 28.7 (28.2-33.3) pg MCHC 31.8 (31.7-36.0) g/dL RDW 15.4 H (11.2-14.1) % Plt Count 235 (150-350) K/uL Neut % (Auto) 57.1 (45.0-80.0) % Lymph % (Auto) 25.0 (10.0-50.0) % [place] % (Auto) 11.7 (2.0-14.0) % Eos % (Auto) 5.8 H (0.0-5.0) % Baso % (Auto) 0.4 (0.0-2.0) % Neut # (Auto) 4.42 (1.40-7.00) K/uL Lymph # (Auto) 1.94 (0.50-3.50) K/uL [place] # (Auto) 0.91 (0.00-1.00) K/uL Eos # (Auto) 0.45 (0.00-0.50) K/uL Baso # (Auto) 0.03 (0.00-0.20) K/uL D-Dimer, Quantitative (0-400) ng/mL Sodium 142 (136-145) mmol/L Potassium 4.1 (3.5-5.1) mmol/L Chloride 101 (98-107) mmol/L Carbon Dioxide 33.4 H (21.0-32.0) mmol/L BUN 27 H (7-18) mg/dL Creatinine 1.16 (0.51-1.17) mg/dL Est Cr Clr Drug Dosing 60.48 Estimated GFR (MDRD) > 60 mL/min Glucose 116 H (74-106) mg/dL POC Glucose (65-110) mg/dl Hemoglobin A1c (4.3-5.7) % Lactic Acid (0.4-2.0) mmol/L Uric Acid (2.6-7.2) mg/dL Calcium 9.8 (8.5-10.1) mg/dL Magnesium (1.8-2.4) mg/dL Iron (50-175) ug/dL TIBC (250-450) ug/dL % Saturation Total Bilirubin 0.2 (0.2-1.0) mg/dL AST 19 (15-37) U/L ALT 23 (12-78) U/L Alkaline Phosphatase 84 (46-116) IU/L Creatine Kinase 49 (26-308) U/L Creatine Kinase Index 3.1 H (0.0-2.5) % CK-MB (CK-2) 1.50 (0.00-3.60) ng/mL Troponin I 0.000 (0.000-0.056) ng/mL NT-Pro-B Natriuret Pep 1142 H (0-125) pg/mL Total Protein 6.7 (6.4-8.2) g/dL Albumin 2.9 L (3.4-5.0) g/dL Triglycerides (30-150) mg/dL Cholesterol (100-200) mg/dL LDL Cholesterol, Calc (0-100) mg/dL HDL Cholesterol (40-60) mg/dL Vitamin B12 (193-986) pg/mL Folate (8.6-58.9) ng/mL TSH, Ultra Sensitive (0.358-3.740) mIU/mL Specimen Type Urine Color Urine Appearance Urine pH (5.0-9.0) Ur Specific [place] (1.005-1.030) Urine Protein (NEGATIVE) mg/dL Urine Glucose (UA) (NEGATIVE) mg/dL Urine Ketones (NEGATIVE) mg/dL Urine Occult Blood (NEGATIVE) Urine Nitrite (NEGATIVE) Urine Bilirubin (NEGATIVE) Urine Urobilinogen (0.2-1.0) E.U./dL Ur Leukocyte Esterase (NEGATIVE) Urine RBC /HPF Urine WBC /HPF Ur Epithelial Cells /LPF Urine Bacteria (NONE TO FEW) /HPF Ur Random Microalbumin (NEGATIVE) mg/L DENISE Results - Last 24 hrs: Microbiology 08/18/17 14:45 Stool Occult Blood (DENISE) - Final Stool / Feces NEGATIVE OCCULT BLOOD Microbiology 08/17/17 20:00 Urine, Catheterized Urine Culture - Final MIXED ROBERTO SUGGESTIVE OF CONTAMINATION. 08/16/17 23:35 Blood - Venous - Lab Draw Aerobic Blood Culture - Preliminary NO GROWTH AFTER 3 DAYS 08/16/17 23:35 Blood - Venous - Lab Draw Anaerobic Blood Culture - Preliminary NO GROWTH AFTER 3 DAYS 08/16/17 23:05 Blood - Venous Aerobic Blood Culture - Preliminary NO GROWTH AFTER 3 DAYS 08/16/17 23:05 Blood - Venous Anaerobic Blood Culture - Preliminary NO GROWTH AFTER 3 DAYS 08/18/17 14:45 Stool / Feces Stool Occult Blood (DENISE) - Final NEGATIVE OCCULT BLOOD Note that despite mixed roberto this was a catheterized specimen with probable UTI Med Orders - Current: Current Medications Acetaminophen (Tylenol) 650 mg PO Q4H PRN PRN Reason: Fever/Pain Last Admin: 08/20/17 03:06 Dose: 650 mg Al Hydroxide/Mg Hydroxide (Mag-Al Plus) 30 ml PO DAILY PRN PRN Reason: Indigestion Last Admin: 08/18/17 19:51 Dose: 30 ml Albuterol (Proventil Neb Soln) 2.5 mg INH Q2H PRN PRN Reason: SHORTNESS OF BREATH Albuterol/Ipratropium (Duoneb 3.0-0.5 Mg/3 Ml) 3 ml NEB Q6HRRT [facility] Last Admin: 08/20/17 07:46 Dose: 3 ml Albuterol/Ipratropium (Duoneb 3.0-0.5 Mg/3 Ml) 3 ml NEB Q4HRRT PRN PRN Reason: Dyspnea Amlodipine Besylate (Norvasc) 10 mg PO DAILY [facility] Last Admin: 08/20/17 07:43 Dose: 10 mg Aspirin (Aspirin) 81 mg PO DAILY [facility] Last Admin: 08/20/17 07:42 Dose: 81 mg Atorvastatin Calcium (Lipitor) 40 mg PO BEDTIME [facility] Last Admin: 08/19/17 20:20 Dose: 40 mg Bisacodyl (Dulcolax) 10 mg PO DAILY PRN PRN Reason: Constipation Carvedilol (Coreg) 6.25 mg PO BIDMEALS [facility] Last Admin: 08/20/17 07:44 Dose: Not Given Clonidine HCl (Catapres) 0.2 mg PO TID [facility] Last Admin: 08/20/17 07:41 Dose: 0.2 mg Clopidogrel Bisulfate (Plavix) 75 mg PO DAILY [facility] Last Admin: 08/20/17 07:42 Dose: 75 mg Donepezil HCl (Aricept) 20 mg PO BEDTIME [facility] Last Admin: 08/19/17 20:20 Dose: 20 mg Enoxaparin Sodium (Lovenox) 30 mg SUBCUT BEDTIME [facility] Last Admin: 08/19/17 20:21 Dose: 30 mg Ferrous Sulfate (Ferrous Sulfate) 325 mg PO BIDMEALS [facility] Last Admin: 08/20/17 07:42 Dose: 325 mg Fluticasone Propionate (Flonase) 0 gm NASBOTH BID@1000,1600 [facility] Last Admin: 08/19/17 17:04 Dose: 2 spray Furosemide (Lasix) 40 mg IVPUSH Q8H [facility] Last Admin: 08/20/17 02:52 Dose: 40 mg Gabapentin (Neurontin) 600 mg PO TID [facility] Last Admin: 08/20/17 07:42 Dose: 600 mg Guaifenesin/Dextromethorphan (Mucinex Dm Er 600-30 Mg) 1 tab PO BID [facility] Last Admin: 08/20/17 07:42 Dose: 1 tab Azithromycin 500 mg/ Sodium (Chloride) 250 mls @ 250 mls/hr IV Q24H [facility] Last Admin: 08/20/17 00:41 Dose: 250 mls/hr Ceftriaxone Sodium 1 gm/ (Sodium Chloride) 100 mls @ 200 mls/hr IV Q12H [facility] Last Admin: 08/20/17 00:11 Dose: 200 mls/hr Insulin Aspart (Novolog Mix 70-30) 0 unit SUBCUT BIDAC [facility] PRN Reason: Protocol Last Admin: 08/20/17 07:45 Dose: Not Given Lamotrigine (Lamotrigine) 250 mg PO BID [facility] Last Admin: 08/20/17 07:41 Dose: 250 mg Levothyroxine Sodium (Levothyroxine) 25 mcg PO ACBREAKFAST [facility] Last Admin: 08/20/17 07:43 Dose: 25 mcg Lisinopril (Prinivil) 10 mg PO QPM [facility] Last Admin: 08/19/17 17:16 Dose: 10 mg Loratadine (Claritin) 10 mg PO DAILY [facility] Last Admin: 08/20/17 07:41 Dose: 10 mg Lorazepam (Ativan) 0.5 mg PO Q4H PRN PRN Reason: Anxiety Last Admin: 08/20/17 03:07 Dose: 0.5 mg Lorazepam (Ativan) 0.5 mg PO DAILY [facility] Last Admin: 08/20/17 07:42 Dose: 0.5 mg Lorazepam (Ativan) 1 mg PO BEDTIME [facility] Last Admin: 08/19/17 20:21 Dose: 1 mg Melatonin (Melatonin) 6 mg PO BEDTIME [facility] Last Admin: 08/19/17 20:20 Dose: 6 mg Memantine (Namenda) 10 mg PO BID [facility] Last Admin: 08/20/17 07:42 Dose: 10 mg Metformin HCl (Glucophage) 500 mg PO BIDMEALS [facility] Last Admin: 08/20/17 07:44 Dose: 500 mg Nitroglycerin (Nitrostat) 0.4 mg SL Q5M PRN PRN Reason: Chest Pain Pantoprazole Sodium (Protonix) 40 mg PO DAILY@0700 [facility] Last Admin: 08/20/17 07:42 Dose: 40 mg Polyethylene Glycol (Miralax) 17 gm PO BEDTIME [facility] Last Admin: 08/19/17 20:20 Dose: 17 gm Potassium Chloride (Klor-Con M20) 20 meq PO TID [facility] Last Admin: 08/20/17 07:43 Dose: 20 meq Senna/Docusate Sodium (Senna Plus) 2 tab PO BID [facility] Last Admin: 08/20/17 07:43 Dose: 2 tab Sertraline HCl (Zoloft) 200 mg PO DAILY [facility] Last Admin: 08/20/17 07:43 Dose: 200 mg Sodium Chloride (Saline Flush) 10 ml FLUSH ASDIRECTED PRN PRN Reason: IV Use Last Admin: 08/20/17 02:52 Dose: 10 ml Tramadol HCl (Ultram) 50 mg PO Q6H PRN PRN Reason: Breakthrough Pain Last Admin: 08/20/17 03:06 Dose: 50 mg Triamcinolone Acetonide (Triamcinolone Acetonide 0.1% Crm) 0 gm TOP BID PRN PRN Reason: itching Discontinued Medications Acetaminophen (Tylenol) 650 mg PO Q6H PRN PRN Reason: Fever/Pain Albuterol (Proventil Neb Soln) 2.5 mg NEB Q4H PRN PRN Reason: Cough Carvedilol (Coreg) 6.25 mg PO ONETIME ONE Stop: 08/16/17 21:37 Last Admin: 08/16/17 21:57 Dose: 6.25 mg Carvedilol (Coreg) 3.125 mg PO ONETIME ONE Stop: 08/16/17 21:38 Last Admin: 08/16/17 21:58 Dose: 3.125 mg Carvedilol (Coreg) 6.25 mg PO BID [facility] Last Admin: 08/17/17 08:14 Dose: 9.375 mg Clonidine HCl (Catapres) 0.2 mg PO ONETIME ONE Stop: 08/16/17 21:37 Last Admin: 08/16/17 21:57 Dose: 0.2 mg Docusate Sodium (Colace) 100 mg PO BID [facility] Last Admin: 08/17/17 08:19 Dose: 100 mg Furosemide (Lasix) 40 mg PO DAILY [facility] Last Admin: 08/17/17 08:19 Dose: 40 mg Azithromycin 500 mg/ Sodium (Chloride) 250 mls @ 250 mls/hr IV ONETIME ONE Stop: 08/17/17 00:59 Last Admin: 08/17/17 01:19 Dose: 250 mls/hr Ceftriaxone Sodium 1 gm/ (Sodium Chloride) 100 mls @ 200 mls/hr IV ONETIME ONE Stop: 08/17/17 00:30 Last Admin: 08/17/17 00:47 Dose: 200 mls/hr Lorazepam (Ativan) 1 mg PO ONETIME ONE Stop: 08/16/17 21:39 Last Admin: 08/16/17 21:57 Dose: 1 mg Magnesium Citrate (Citrate Of Magnesia) 296 ml PO ONETIME ONE Stop: 08/18/17 11:55 Last Admin: 08/18/17 12:15 Dose: 296 ml Magnesium Hydroxide (Milk Of Magnesia) 30 ml PO ONETIME ONE Stop: 08/18/17 11:13 Last Admin: 08/18/17 13:44 Dose: Not Given Non-Formulary Medication (Capsaicin/Menthol [Salonpas Gel-Patch Hot]) 1 each TP BID PRN PRN Reason: Pain Non-Formulary Medication (Tramadol [Ultram Er]) 100 mg PO DAILY PRN PRN Reason: Pain (moderate 4-6) Polyethylene Glycol (Miralax) 17 gm PO ONETIME ONE Stop: 08/18/17 11:11 Last Admin: 08/18/17 13:44 Dose: Not Given Polyethylene Glycol (Miralax) 17 gm PO ONETIME ONE Stop: 08/18/17 11:15 Last Admin: 08/18/17 12:08 Dose: 17 gm Tramadol HCl (Ultram) 50 mg PO DAILY@1130 [facility] Tramadol HCl (Ultram) 100 mg PO BID [facility] Last Admin: 08/17/17 08:12 Dose: 100 mg Tramadol HCl (Ultram) 50 mg PO DAILY@1200 [facility] Triamcinolone Acetonide (Triamcinolone Acetonide 0.1% Crm) 0 gm TOP DAILY PRN PRN Reason: Itching - Exam Quality Assessment: Reports: Supplemental Oxygen, DVT Prophylaxis (Lovenox). Denies: Urine Catheter, Skin Breakdown, Restraints General: Reports: Alert, Cooperative, No Acute Distress. Denies: Oriented ( Confusion at baseline) HEENT: Reports: Pupils Equal, Pupils Reactive, EOMI, Mucous Membr. Moist/[place] Neck: Reports: Supple, Trachea Midline, No JVD, No Thyromegaly, Carotid Bruit ( Mild bilateral carotid bruits). Denies: Lymphadenopathy Lungs: Reports: Normal Respiratory Effort, Rales (Significant improved mild bilateral basilar rales). Denies: Rhonchi, Rub, Wheezing Cardiovascular: Reports: Regular Rate, Regular Rhythm, No Murmurs. Denies: Gallops, Rubs GI/Abdominal Exam: Normal Bowel Sounds, Soft, Non-Tender, No Organomegaly, No Distention, No Abnormal Bruit, No Mass, Pelvis Stable, Other (Obese). No: Guarding (Male) Exam: Deferred Rectal (Males) Exam: Deferred Back Exam: Reports: Normal Inspection, Full Range of Motion. Denies: CVA Tenderness (L), CVA Tenderness (R), Muscle Spasm Extremities: Normal Range of Motion, Non-Tender, Normal Capillary Refill, Pedal Edema (Significantly improved trace bilateral pedal/digital edema). No: Madelyn' s Sign Skin: Reports: Warm, Intact, Ecchymosis (Ecchymosis of Lovenox and IV sitesmild ) Neurological: Reports: No New Focal Deficit Psy/Mental Status: Reports: Alert, Normal Affect, Normal Mood. Denies: Agitated , Hallucinations, Withdrawal Symptoms *Q Meaningful Use (DIS) - VTE *Q VTE Criteria *Q: - Stroke *Q Stroke Criteria *Q: - AMI *Q AMI Criteria *Q:
[2017-08-20] MEDS: Fluticasone Propionate Nasal Spray 16 GM Bottle NASBOTH SCH (09:06)
== END 2017-08-20 11:45 | DRG 313 ==
LOC: LL.ED 20:45 → LL.MS 22:33 → OBSVTOIN 08-17 09:46
PROVIDERS: ADMIT Emergency Medicine; ATTEND Family Medicine
DX: R07.9 Chest pain, unspecified (principal); D72.829 Elevated white blood cell count, unspecified; I10 Essential (primary) hypertension; N39.0 Urinary tract infection, site not specified; Z51.5 Encounter for palliative care; G62.9 Polyneuropathy, unspecified; M19.90 Unspecified osteoarthritis, unspecified site; I25.10 Atherosclerotic heart disease of native coronary artery without angina pectoris; I50.9 Heart failure, unspecified; J44.9 Chronic obstructive pulmonary disease, unspecified; D50.9 Iron deficiency anemia, unspecified; K21.9 Gastro-esophageal reflux disease without esophagitis; I11.0 Hypertensive heart disease with heart failure; E88.09 Other disorders of plasma-protein metabolism, not elsewhere classified; G30.1 Alzheimer's disease with late onset; F02.80 Dementia in other diseases classified elsewhere, unspecified severity, without behavioral disturbance, psychotic disturbance, mood disturbance, and anxiety; E11.9 Type 2 diabetes mellitus without complications; Z79.4 Long term (current) use of insulin; E78.5 Hyperlipidemia, unspecified; E03.9 Hypothyroidism, unspecified; M15.0 Primary generalized (osteo)arthritis; N28.9 Disorder of kidney and ureter, unspecified
CPT/HCPCS: 36415 ×2; 71010; 80053; 82550 ×2; 82553 ×2; 83605; 84484 ×2; 85025 ×2; 85379; 87040 ×2; 93005; 96365; 96368; 99285; A9270 ×22; G0378 ×2; J0456; J0696; J7050 ×2; 51701; 80048; 80061; 81001; 82044; 82272; 82607; 82746; 82962; 83036; 83540; 83550; 83735; 83880; 84443; 84550; 87086; 87338; 87641; 94640; 99220; J1650; J1815-GY; J1940

== ENCOUNTER 2017-10-20 02:20 | Inpatient (IN) | payer MEDICARE, BC ==
--- NOTE | 2017-10-20 02:39 | EDM.PDOC ---
ED HPI GENERAL MEDICAL PROBLEM - General Chief Complaint: Respiratory Problem Stated Complaint: mild temp, dyspnec, hypoxic Time Seen by Provider: 10/20/17 02:30 Source of Information: Reports: EMS, Family, Skilled Nursing Records History Limitations: Reports: No Limitations, Altered Mental Status - History of Present Illness INITIAL COMMENTS - FREE TEXT/NARRATIVE: Patient is a 77-year-old who was transported from [place] with history of dementia reason for transfer was patient was noted to have cough hypoxia saturations were in the low 80,s in the higher 80s on room air cough was described as moist. Onset: Gradual (Past day) Duration: Hour(s):, Constant Location: Reports: Chest Severity: Moderate Improves with: Reports: Medication (Albuterol and oxygen) Context: Reports: Other Associated Symptoms: Reports: Confusion, Cough, Fever/Chills (Low-grade), Shortness of Breath - Related Data Allergies Allergy/AdvReac Type Severity Reaction Status Date / Time [id number] Reductase Allergy Muscle Verified 08/16/17 21:10 Inhibitor Aches Home Meds: Home Meds LORazepam [Ativan] 0.5 mg PO DAILY 06/11/14 [History] LORazepam [Ativan] 0.5 mg PO Q4HR PRN 06/11/14 [History] Memantine HCl [Namenda] 10 mg PO BID 06/11/14 [History] Multivitamin with Minerals [Multivitamins with Minerals] 2 tab PO BID 06/11/14 [ History] Sennosides/Docusate Sodium [Senna-S] 2 tab PO BID 06/11/14 [History] amLODIPine [Norvasc] 10 mg PO DAILY 06/11/14 [History] lamoTRIgine [Lamictal] 250 mg PO BID 06/11/14 [History] metFORMIN [Glucophage] 500 mg PO BID 06/11/14 [History] Aspirin [Silver Chewable Aspirin] 81 mg PO DAILY 09/25/16 [History] Bisacodyl [Dulcolax] 10 mg PO DAILY PRN 09/25/16 [History] Cholecalciferol (Vitamin D3) [Vitamin D3] 5,000 unit PO DAILY 09/25/16 [History] Docusate Sodium [Colace] 100 mg PO BID 09/25/16 [History] Donepezil HCl 20 mg PO BEDTIME 09/25/16 [History] Fluticasone Propionate [Flonase] 2 spray NASBOTH BID@1000,1600 09/25/16 [History ] Gabapentin [Neurontin] 600 mg PO TID 09/25/16 [History] Ipratropium [place] 2 spray NASBOTH TID 09/25/16 [History] Levothyroxine Sodium [Synthroid] 25 mcg PO DAILY 09/25/16 [History] Loratadine [Claritin] 10 mg PO DAILY 09/25/16 [History] Sertraline [Zoloft] 200 mg PO DAILY 09/25/16 [History] Triamcinolone Acetonide [Triamcinolone Acetonide 0.1% Crm] 1 applic TOP DAILY PRN 09/25/16 [History] traMADol HCl [Tramadol HCl] 100 mg PO BID 09/25/16 [History] Albuterol [Proventil Neb Soln] 2.5 mg NEB Q4HR PRN 08/17/17 [History] Capsaicin/Menthol [Salonpas Gel-Patch Hot] 1 each TP BID PRN 08/17/17 [History] Clopidogrel [Plavix] 75 mg PO DAILY 08/17/17 [History] Ferrous Sulfate 325 mg PO BID 08/17/17 [History] LORazepam 1 mg PO BEDTIME 08/17/17 [History] Melatonin 6 mg PO BEDTIME 08/17/17 [History] Nitroglycerin [Nitrostat] 0.4 mg SL ASDIRECTED PRN 08/17/17 [History] Pantoprazole Sodium [Protonix] 40 mg PO DAILY 08/17/17 [History] Polyethylene Glycol 3350 [MiraLAX] 17 gm PO BEDTIME 08/17/17 [History] atorvaSTATin [Lipitor] 40 mg PO BEDTIME 08/17/17 [History] cloNIDine HCl [Catapres] 0.2 mg PO TID 08/17/17 [History] traMADol HCl [Tramadol HCl] 50 mg PO ACLUNCH 08/17/17 [History] traMADol HCl [Tramadol HCl] 100 mg PO DAILY PRN 08/17/17 [History] Non-Formulary Medication [NF Drug] 1 applic TOP DAILY 08/19/17 [History] Acetaminophen [Tylenol] 650 mg PO Q4H PRN tablet 08/20/17 [Rx] Albuterol/Ipratropium [DuoNeb 3.0-0.5 MG/3 ML] 3 ml NEB Q4HRRT PRN neb [Rx] Carvedilol [Coreg] 6.25 mg PO BIDMEALS tablet 08/20/17 [Rx] Lisinopril [Prinivil] 10 mg PO QPM #20 tablet 08/20/17 [Rx] Potassium Chloride [Klor-Con M20] 20 meq PO TID #30 tab.er 08/20/17 [Rx] Albuterol/Ipratropium [DuoNeb 3.0-0.5 MG/3 ML] 3 ml NEB Q6HR 10/20/17 [History] Dextran 70/Hypromellose [Artificial Tears] 2 drop EYEBOTH Q1H PRN 10/20/17 [ History] Furosemide [Lasix] 40 mg PO BID@08,14 10/20/17 [History] Menthol/Methyl Salicylate [Icy Hot Cream] 1 applic TP QID PRN 10/20/17 [History] Mirabegron [Myrbetriq] 25 mg PO DAILY 10/20/17 [History] Saliva Stimulant Agents Comb.3 [Biotene Moisturizing Mouth [place]] 1 spray MM Q4HR PRN 10/20/17 [History] Past Medical History HEENT History: Reports: Allergic Rhinitis, Other (See Below) Other HEENT History: atypical facial pain, disorder of facial nerve Cardiovascular History: Reports: CAD, High Cholesterol, Hypertension Respiratory History: Reports: Other (See Below) Genitourinary History: Reports: BPH Musculoskeletal History: Reports: Gout, Neck Pain, Chronic, Osteoarthritis, Other (See Below) Other Musculoskeletal History: spinal stenosis Neurological History: Reports: Alzheimers Disease Other Neuro History: Dementia Psychiatric History: Reports: Addiction, Alzheimers Disease, Anxiety, Depression 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 Endocrine/Metabolic History: Reports: Diabetes, Type II, Hypothyroidism, Obesity /BMI 30+ Hematologic History: Reports: Anemia, Iron Deficiency Oncologic (Cancer) History: Reports: Basal Cell Carcinoma Dermatologic History: Reports: Other (See Below) Other Dermatologic History: Rosacea - History Comment History Comment: Insomnia, atypical facial pain Social & Family History - Tobacco Use Smoking Status *Q: Former Smoker Years of Tobacco use: 4 Used Tobacco, but Quit: Yes Month Tobacco Last Used: Quit many years ago Second Hand Smoke Exposure: No - Caffeine Use Caffeine Use: Reports: Coffee, Soda - Alcohol Use Days Per Week of Alcohol Use: 0 Number of Drinks Per Day: 0 Total Drinks Per Week: 0 - Recreational Drug Use Recreational Drug Use: No Drug Use in Last 12 Months: No ED ROS GENERAL - Review of Systems Review Of Systems: See Below Constitutional: Reports: Fever (Low-grade) HEENT: Reports: No Symptoms Respiratory: Reports: Shortness of Breath, Cough Cardiovascular: Reports: No Symptoms Endocrine: Reports: No Symptoms GI/Abdominal: Reports: No Symptoms : Reports: No Symptoms Musculoskeletal: Reports: No Symptoms Skin: Reports: No Symptoms Neurological: Reports: Confusion Psychiatric: Reports: Confusion, Other (History of dementia) Hematologic/Lymphatic: Reports: No Symptoms Immunologic: Reports: No Symptoms ED EXAM, GENERAL - Physical Exam Exam: See Below Exam Limited By: Altered Mental Status General Appearance: WD/WN, Moderate Distress Eye Exam: Bilateral Eye: Corneal Abrasion, PERRL Ears: Normal External Exam, Normal Canal Nose: Normal Inspection, Normal Mucosa (Dry) Head: Atraumatic, Normocephalic Neck: Normal Inspection, Supple, Non-Tender, Full Range of Motion Respiratory/Chest: Decreased Breath Sounds, Rales (Expiratory), Stridor Cardiovascular: Normal Peripheral Pulses, Regular Rate, Rhythm, No Edema GI/Abdominal: Normal Bowel Sounds, Soft, Non-Tender, No Distention (Male) Exam: Deferred Rectal (Males) Exam: Deferred Back Exam: Normal Inspection, Full Range of Motion, NT Extremities: Normal Inspection, Normal Range of Motion, Non-Tender, Normal Capillary Refill, No Pedal Edema Neurological: Confused, Disoriented, Slow to Respond. No: Normal Cognition Psychiatric: Other (Patient confused to time and place) Skin Exam: Warm, Dry, Intact, Normal Color, No Rash Course - Vital Signs Last Recorded V/S: Last Vital Signs Temp 99.6 F 10/20/17 02:20 Pulse 80 10/20/17 02:20 Resp 21 H 10/20/17 02:20 BP 119/50 L 10/20/17 02:20 Pulse Ox 92 L 10/20/17 02:20 - Orders/Labs/Meds Orders: Active Orders 24 hr Category Date Time Status Chest 1V Frontal [CR] Stat Exams 10/20/17 02:32 Ordered BASIC METABOLIC PANEL,BMP [CHEM] Stat Lab 10/20/17 02:32 Ordered CBC WITH AUTO DIFF [HEME] Stat Lab 10/20/17 02:32 Ordered CULTURE BLOOD [BC] Stat Lab 10/20/17 02:33 Ordered CULTURE BLOOD [BC] Stat Lab 10/20/17 02:33 Ordered INFLUENZA A+B AG SCREEN [RM] Stat Lab 10/20/17 02:32 Uncollected Blood Culture x2 Reflex Set [OM.PC] Stat Oth 10/20/17 02:32 Ordered Departure - Departure Time of Disposition: 03:43 Disposition: Admitted As Inpatient 68 Condition: Fair, Serious Clinical Impression: Hypoxemia, Pneumonia, Dementia, CHF (congestive heart failure), Renal failure ( ARF), acute on chronic, Hyperkalemia - Discharge Information Referrals: Mikael Subramanian MD [Primary Care Provider] - - Problem List & Annotations (1) Pneumonia SNOMED Code(s): 951649086 Code(s): J18.9 - PNEUMONIA, UNSPECIFIED ORGANISM Status: Acute Priority: High Onset Date: ~09/25/16 Annotation/Comment:: Patient's white count is 21.5 chest x-ray revealed opacity left chest blood cultures obtained influenza pending but due to his condition will admit for antibiotic therapy tentative diagnosis pneumonia Qualifiers: Pneumonia type: due to unspecified organism Laterality: left Lung location: unspecified part of lung Qualified Code(s): J18.9 - Pneumonia, unspecified organism (2) Hyperkalemia SNOMED Code(s): 72432888 Code(s): E87.5 - HYPERKALEMIA Status: Acute Annotation/Comment:: Hyperkalemia secondary to renal failure I will go ahead and diurese him (3) CHF (congestive heart failure) SNOMED Code(s): 84473813 Code(s): I50.9 - HEART FAILURE, UNSPECIFIED Status: Acute Annotation/ Comment:: I will decrease him to see we correct his CHF and his hyperkalemia (4) Renal failure (ARF), acute on chronic SNOMED Code(s): 935354695 Code(s): N17.9 - ACUTE KIDNEY FAILURE, UNSPECIFIED; N18.9 - CHRONIC KIDNEY DISEASE, UNSPECIFIED Status: Acute Annotation/Comment:: Will monitor may need to give fluids Qualifiers: Chronic kidney disease stage: unspecified stage - Problem List Review Problem List Initiated/Reviewed/Updated: Yes - My Orders Last 24 Hours: My Active Orders 10/20/17 02:32 Chest 1V Frontal [CR] Stat BASIC METABOLIC PANEL,BMP [CHEM] Stat CBC WITH AUTO DIFF [HEME] Stat INFLUENZA A+B AG SCREEN [RM] Stat Blood Culture x2 Reflex Set [OM.PC] Stat 10/20/17 02:33 CULTURE BLOOD [BC] Stat CULTURE BLOOD [BC] Stat - Assessment/Plan Admission H&P: Please use this note as an admission H&P Last 24 Hours: My Active Orders 10/20/17 02:32 Chest 1V Frontal [CR] Stat BASIC METABOLIC PANEL,BMP [CHEM] Stat CBC WITH AUTO DIFF [HEME] Stat INFLUENZA A+B AG SCREEN [RM] Stat Blood Culture x2 Reflex Set [OM.PC] Stat 10/20/17 02:33 CULTURE BLOOD [BC] Stat CULTURE BLOOD [BC] Stat Plan: We will admit patient to inpatient start him on antibiotics and treat him as pneumonia
[2017-10-20] MEDS ORDERED: Sodium Chloride 0.9% 10 ML Syringe FLUSH PRN (02:56)
[2017-10-20] MEDS ORDERED: Albuterol 0.083% 2.5 MG/3 ML Neb Soln NEB PRN (03:46)
[2017-10-20] MEDS ORDERED: HYPROMELLOSE EYEBOTH PRN (03:46)
[2017-10-20] MEDS ORDERED: Triamcinolone Acetonide 0.1% Crm 15 GM Tube TOP PRN (03:46)
[2017-10-20] MEDS ORDERED: Albuterol/Ipratropium 3.0-0.5 MG/3 ML Neb Soln NEB PRN (03:46)
[2017-10-20] MEDS ORDERED: SALIVA STIMULANT AGENTS COMB MM PRN (03:46)
[2017-10-20] MEDS ORDERED: DEXTRAN EYEBOTH PRN (03:46)
[2017-10-20] MEDS ORDERED: Nitroglycerin 0.4 MG Tab.SL SL PRN (03:46)
[2017-10-20] MEDS ORDERED: Polyvinyl Alcohol 1.4% Ophth Soln 15 ML Bottle EYEBOTH PRN (04:14)
[2017-10-20] MEDS: cefTRIAXone 1 GM in Sodium Chloride 0.9% 100 ML IV SCH ×2 (04:20→15:27)
[2017-10-20] MEDS: Acetaminophen 325 MG Tab PO PRN (04:21)
[2017-10-20] MEDS: Piperacillin/Tazobactam 3.375 GM in Sodium Chloride 0.9% 100 ML IV SCH ×4 (04:21→22:05)
[2017-10-20] MEDS: Sodium Chloride 0.9% 10 ML Syringe FLUSH PRN ×3 (04:22→22:05)
[2017-10-20] MEDS ORDERED: Saliva Substitute Oral Spray 120 ML Bottle MUCMEM PRN (04:23)
[2017-10-20] MEDS ORDERED: Bisacodyl 10 MG Supp RECTAL PRN (05:50)
[2017-10-20] MEDS ORDERED: traMADol 50 MG Tab PO SCH ×2 (06:00→12:00)
[2017-10-20] MEDS: Albuterol/Ipratropium 3.0-0.5 MG/3 ML Neb Soln NEB SCH ×4 (06:16→20:08)
[2017-10-20] MEDS ORDERED: Gabapentin 300 MG Cap PO SCH (08:00)
[2017-10-20] MEDS ORDERED: SERTRALINE PO SCH (08:00)
[2017-10-20] MEDS ORDERED: Non-Formulary Medication 1 Each (Gabapentin 600 MG) PO SCH (08:00)
[2017-10-20] MEDS ORDERED: Enoxaparin 40 MG/0.4 ML Syringe SUBCUT SCH (08:00)
[2017-10-20] MEDS ORDERED: Non-Formulary Medication 1 Each (Mirabegron [Myrbetriq] 25 MG) PO SCH (08:00)
[2017-10-20] MEDS ORDERED: Non-Formulary Medication 1 Each (Amlodipine [Norvasc] 10 MG) PO SCH (08:00)
[2017-10-20] MEDS ORDERED: LORazepam 1 MG Tab PO SCH (08:00)
[2017-10-20] MEDS ORDERED: Non-Formulary Medication 1 Each (Ipratropium Bromide [Ipratropium Bromide] 2 SPRAY) NASBOTH SCH (08:00)
[2017-10-20] MEDS ORDERED: Non-Formulary Medication 1 Each (Clonidine Hcl [Catapres] 0.2 MG) PO SCH (08:00)
[2017-10-20] MEDS: lamoTRIgine 100 MG Tab PO SCH ×2 (08:48→17:51)
[2017-10-20] MEDS: Mirabegron 25 MG Tab Extended Release PO SCH (08:51)
[2017-10-20] MEDS: Aspirin 81 MG Tab.Chew PO SCH (08:51)
[2017-10-20] MEDS: Carvedilol 6.25 MG Tab PO SCH ×2 (08:51→17:49)
[2017-10-20] MEDS: Memantine 10 MG Tab PO SCH ×2 (08:51→17:50)
[2017-10-20] MEDS: Sertraline 50 MG Tab PO SCH (08:52)
[2017-10-20] MEDS: Clopidogrel 75 MG Tab PO SCH (08:52)
[2017-10-20] MEDS: amLODIPine 5 MG Tab PO SCH (08:53)
[2017-10-20] MEDS: cloNIDine 0.1 MG Tab PO SCH ×3 (08:54→17:51)
[2017-10-20] MEDS: Furosemide 40 MG Tab PO SCH ×2 (08:54→14:05)
[2017-10-20] MEDS: LORazepam 0.5 MG Tab PO SCH ×2 (11:15→15:57)
[2017-10-20] MEDS: Insulin Aspart 100 Units/ML 3 ML Pen SUBCUT SCH (17:52)
[2017-10-20] MEDS: LORazepam 1 MG Tab PO SCH (20:08)
[2017-10-20] MEDS: Donepezil 10 MG Tab PO SCH (20:08)
[2017-10-20] MEDS: Gabapentin 300 MG Cap PO SCH (20:09)
[2017-10-20] MEDS: Melatonin 3 MG Tab PO SCH (20:09)
[2017-10-21] MEDS ORDERED: Acetaminophen 650 MG Supp RECTAL PRN (00:59)
[2017-10-21] MEDS: Albuterol/Ipratropium 3.0-0.5 MG/3 ML Neb Soln NEB SCH ×4 (01:41→20:51)
[2017-10-21] MEDS: Sodium Chloride 0.9% 10 ML Syringe FLUSH PRN ×5 (03:14→15:10)
[2017-10-21] MEDS: cefTRIAXone 1 GM in Sodium Chloride 0.9% 100 ML IV SCH ×2 (03:14→15:10)
[2017-10-21] MEDS: Piperacillin/Tazobactam 3.375 GM in Sodium Chloride 0.9% 100 ML IV SCH ×4 (03:52→20:52)
[2017-10-21] MEDS: LORazepam 0.5 MG Tab PO SCH ×4 (07:34→15:56)
[2017-10-21] MEDS: Sertraline 50 MG Tab PO SCH (07:34)
[2017-10-21] MEDS: Aspirin 81 MG Tab.Chew PO SCH (07:35)
[2017-10-21] MEDS: Memantine 10 MG Tab PO SCH ×2 (07:35→17:44)
[2017-10-21] MEDS: Mirabegron 25 MG Tab Extended Release PO SCH (07:35)
[2017-10-21] MEDS: Gabapentin 300 MG Cap PO SCH ×2 (07:35→20:51)
[2017-10-21] MEDS: Carvedilol 6.25 MG Tab PO SCH ×2 (07:42→17:46)
[2017-10-21] MEDS: amLODIPine 5 MG Tab PO SCH (07:43)
[2017-10-21] MEDS: Enoxaparin 30 MG/0.3 ML Syringe SUBCUT SCH (07:44)
[2017-10-21] MEDS: cloNIDine 0.1 MG Tab PO SCH ×3 (07:44→17:46)
[2017-10-21] MEDS: Clopidogrel 75 MG Tab PO SCH (07:45)
[2017-10-21] MEDS: Furosemide 40 MG Tab PO SCH ×2 (07:46→14:11)
[2017-10-21] MEDS: Insulin Aspart 100 Units/ML 3 ML Pen SUBCUT SCH ×3 (07:47→17:49)
[2017-10-21] MEDS: lamoTRIgine 100 MG Tab PO SCH ×2 (07:49→17:47)
[2017-10-21] MEDS: Acetaminophen 325 MG Tab PO PRN (11:46)
--- NOTE | 2017-10-21 13:37 | PCM.PN ---
- General Info Date of Service: 10/21/17 Functional Status: Reports: Pain Controlled - Review of Systems General: Reports: Fever, Weakness HEENT: Reports: No Symptoms Pulmonary: Reports: Shortness of Breath Cardiovascular: Reports: No Symptoms Gastrointestinal: Reports: No Symptoms Genitourinary: Reports: No Symptoms Musculoskeletal: Reports: Other (Weakness) Skin: Reports: No Symptoms Neurological: Reports: No Symptoms, Other (Much more alert today answers questions) Psychiatric: Reports: No Symptoms Systems Review Comment:: Patient today much more alert feeling better low-grade fever - Patient Data Vitals - Most Recent: Last Vital Signs Temp 99.4 F 10/21/17 13:29 Pulse 79 10/21/17 12:00 Resp 20 10/21/17 12:00 BP 137/69 10/21/17 12:00 Pulse Ox 91 L 10/21/17 12:00 Weight - Most Recent: 236 lb 8.014 oz I&O - Last 24 Hours: Intake & Output 10/20/17 10/21/17 10/21/17 22:59 06:59 14:59 Intake Total 277 586 9348 Output Total 450 1000 Balance -230 -600 2317 Lab Results Last 24 Hours: Laboratory Results - last 24 hr 10/20/17 10/20/17 10/20/17 Range/Units 16:00 17:00 22:11 WBC (4.0-10.2) K/uL RBC (4.33-5.41) M/uL Hgb (13.1-16.8) g/dL Hct (39.0-49.0) % MCV (84.0-98.0) fL MCH (28.2-33.3) pg MCHC (31.7-36.0) g/dL RDW (11.2-14.1) % Plt Count (150-350) K/uL Neut % (Auto) (45.0-80.0) % Lymph % (Auto) (10.0-50.0) % [place] % (Auto) (2.0-14.0) % Eos % (Auto) (0.0-5.0) % Baso % (Auto) (0.0-2.0) % Neut # (Auto) (1.40-7.00) K/uL Lymph # (Auto) (0.50-3.50) K/uL [place] # (Auto) (0.00-1.00) K/uL Eos # (Auto) (0.00-0.50) K/uL Baso # (Auto) (0.00-0.20) K/uL Sodium 146 H (136-145) mmol/L Potassium 5.1 (3.5-5.1) mmol/L Chloride 107 (98-107) mmol/L Carbon Dioxide 30.7 (21.0-32.0) mmol/L BUN 72 H (7-18) mg/dL Creatinine 2.79 H (0.51-1.17) mg/dL Est Cr Clr Drug Dosing 25.14 mL/min Estimated GFR (MDRD) 22 mL/min Glucose 126 H (74-106) mg/dL POC Glucose 126 H 121 H (65-110) mg/dl Calcium 9.2 (8.5-10.1) mg/dL Troponin I (0.000-0.056) ng/mL NT-Pro-B Natriuret Pep (0-125) pg/mL 10/21/17 10/21/17 10/21/17 Range/Units 06:55 06:55 07:32 WBC 11.6 H (4.0-10.2) K/uL RBC 3.86 L (4.33-5.41) M/uL Hgb 10.9 L (13.1-16.8) g/dL Hct 35.7 L (39.0-49.0) % MCV 92.5 (84.0-98.0) fL MCH 28.2 (28.2-33.3) pg MCHC 30.5 L (31.7-36.0) g/dL RDW 17.1 H (11.2-14.1) % Plt Count 134 L (150-350) K/uL Neut % (Auto) 75.0 (45.0-80.0) % Lymph % (Auto) 13.2 (10.0-50.0) % [place] % (Auto) 8.4 (2.0-14.0) % Eos % (Auto) 3.1 (0.0-5.0) % Baso % (Auto) 0.3 (0.0-2.0) % Neut # (Auto) 8.68 H (1.40-7.00) K/uL Lymph # (Auto) 1.53 (0.50-3.50) K/uL [place] # (Auto) 0.97 (0.00-1.00) K/uL Eos # (Auto) 0.36 (0.00-0.50) K/uL Baso # (Auto) 0.03 (0.00-0.20) K/uL Sodium (136-145) mmol/L Potassium (3.5-5.1) mmol/L Chloride (98-107) mmol/L Carbon Dioxide (21.0-32.0) mmol/L BUN (7-18) mg/dL Creatinine (0.51-1.17) mg/dL Est Cr Clr Drug Dosing mL/min Estimated GFR (MDRD) mL/min Glucose (74-106) mg/dL POC Glucose 118 H (65-110) mg/dl Calcium (8.5-10.1) mg/dL Troponin I 0.000 (0.000-0.056) ng/mL NT-Pro-B Natriuret Pep 508 H (0-125) pg/mL 10/21/17 Range/Units 11:21 WBC (4.0-10.2) K/uL RBC (4.33-5.41) M/uL Hgb (13.1-16.8) g/dL Hct (39.0-49.0) % MCV (84.0-98.0) fL MCH (28.2-33.3) pg MCHC (31.7-36.0) g/dL RDW (11.2-14.1) % Plt Count (150-350) K/uL Neut % (Auto) (45.0-80.0) % Lymph % (Auto) (10.0-50.0) % [place] % (Auto) (2.0-14.0) % Eos % (Auto) (0.0-5.0) % Baso % (Auto) (0.0-2.0) % Neut # (Auto) (1.40-7.00) K/uL Lymph # (Auto) (0.50-3.50) K/uL [place] # (Auto) (0.00-1.00) K/uL Eos # (Auto) (0.00-0.50) K/uL Baso # (Auto) (0.00-0.20) K/uL Sodium (136-145) mmol/L Potassium (3.5-5.1) mmol/L Chloride (98-107) mmol/L Carbon Dioxide (21.0-32.0) mmol/L BUN (7-18) mg/dL Creatinine (0.51-1.17) mg/dL Est Cr Clr Drug Dosing mL/min Estimated GFR (MDRD) mL/min Glucose (74-106) mg/dL POC Glucose 216 H (65-110) mg/dl Calcium (8.5-10.1) mg/dL Troponin I (0.000-0.056) ng/mL NT-Pro-B Natriuret Pep (0-125) pg/mL Eusebio Results Last 24 Hours: Microbiology 10/20/17 03:50 Urine Culture - Preliminary Urine, Catheterized NO GROWTH AFTER 1 DAY 10/20/17 03:20 Aerobic Blood Culture - Preliminary Blood - Venous - Lab Draw NO GROWTH AFTER 1 DAY Anaerobic Blood Culture - Preliminary NO GROWTH AFTER 1 DAY Med Orders - Current: Current Medications Acetaminophen (Tylenol) 650 mg PO Q4H PRN PRN Reason: Fever/Pain Last Admin: 10/21/17 11:46 Dose: 650 mg Acetaminophen (Tylenol) 650 mg RECTAL Q4H PRN PRN Reason: Pain/Fever Last Admin: 10/21/17 01:15 Dose: 650 mg Albuterol (Proventil Neb Soln) 2.5 mg NEB Q4HR PRN PRN Reason: Cough Albuterol/Ipratropium (Duoneb 3.0-0.5 Mg/3 Ml) 3 ml NEB Q4HRRT PRN PRN Reason: Dyspnea Last Admin: 10/21/17 00:52 Dose: 3 ml Albuterol/Ipratropium (Duoneb 3.0-0.5 Mg/3 Ml) 3 ml NEB Q6HRRT MILY Last Admin: 10/21/17 07:42 Dose: 3 ml Amlodipine Besylate (Norvasc) 10 mg PO DAILY MILY Last Admin: 10/21/17 07:43 Dose: 10 mg Artificial Tears (Liquitears 1.4% Ophth Soln) 0 ml EYEBOTH Q1H PRN PRN Reason: DRY EYES Aspirin (Aspirin) 81 mg PO DAILY [facility] Last Admin: 10/21/17 07:35 Dose: 81 mg Bisacodyl (Dulcolax) 10 mg RECTAL DAILY PRN PRN Reason: Constipation Last Admin: 10/20/17 06:16 Dose: 10 mg Carvedilol (Coreg) 6.25 mg PO BIDMEALS [facility] Last Admin: 10/21/17 07:42 Dose: 6.25 mg Clonidine HCl (Catapres) 0.2 mg PO TID [facility] Last Admin: 10/21/17 11:42 Dose: 0.2 mg Clopidogrel Bisulfate (Plavix) 75 mg PO DAILY [facility] Last Admin: 10/21/17 07:45 Dose: 75 mg Donepezil HCl (Aricept) 20 mg PO BEDTIME [facility] Last Admin: 10/20/17 20:08 Dose: Not Given Enoxaparin Sodium (Lovenox) 30 mg SUBCUT DAILY [facility] Last Admin: 10/21/17 07:44 Dose: 30 mg Furosemide (Lasix) 40 mg PO BID@08,14 [facility] Last Admin: 10/21/17 07:46 Dose: Not Given Gabapentin (Neurontin) 300 mg PO Q12HR [facility] Last Admin: 10/21/17 07:35 Dose: 300 mg Ceftriaxone Sodium 1 gm/ (Sodium Chloride) 100 mls @ 200 mls/hr IV Q12H [facility] Last Admin: 10/21/17 03:14 Dose: 200 mls/hr Piperacillin Sod/Tazobactam (Sod 3.375 gm/ Sodium Chloride) 100 mls @ 200 mls/ hr IV Q6H [facility] Last Admin: 10/21/17 08:45 Dose: 200 mls/hr Insulin Aspart (Novolog) 0 unit SUBCUT TIDAC [facility] PRN Reason: Protocol Last Admin: 10/21/17 11:49 Dose: 2 units Lamotrigine (Lamotrigine) 250 mg PO BID [facility] Last Admin: 10/21/17 07:49 Dose: 250 mg Lorazepam (Ativan) 0.5 mg PO Q4HR PRN PRN Reason: Anxiety Lorazepam (Ativan) 1 mg PO BEDTIME [facility] Last Admin: 10/20/17 20:08 Dose: Not Given Lorazepam (Ativan) 0.5 mg PO TID@0800,1200,1600 [facility] Last Admin: 10/21/17 11:42 Dose: 0.5 mg Melatonin (Melatonin) 6 mg PO BEDTIME [facility] Last Admin: 10/20/17 20:09 Dose: Not Given Memantine (Namenda) 10 mg PO BID [facility] Last Admin: 10/21/17 07:35 Dose: 10 mg Mirabegron (Myrbetriq) 25 mg PO DAILY [facility] Last Admin: 10/21/17 07:35 Dose: 25 mg Nitroglycerin (Nitrostat) 0.4 mg SL ASDIRECTED PRN PRN Reason: Chest Pain Saliva Substitute (Joe-Stir Oral [place]) 0 ml MUCMEM Q4H PRN PRN Reason: DRY MOUTH Sertraline HCl (Zoloft) 200 mg PO DAILY [facility] Last Admin: 10/21/17 07:34 Dose: 200 mg Sodium Chloride (Saline Flush) 10 ml FLUSH ASDIRECTED PRN PRN Reason: Keep Vein Open Last Admin: 10/21/17 09:20 Dose: 10 ml Sodium Chloride (Saline Flush) 10 ml FLUSH ASDIRECTED PRN PRN Reason: Keep Vein Open Triamcinolone Acetonide (Triamcinolone Acetonide 0.1% Crm) 0 gm TOP DAILY PRN PRN Reason: Itching Discontinued Medications Enoxaparin Sodium (Lovenox) 40 mg SUBCUT DAILY [facility] Last Admin: 10/20/17 08:48 Dose: 40 mg Gabapentin (Neurontin) 600 mg PO TID [facility] Last Admin: 10/20/17 08:53 Dose: 600 mg Insulin Aspart (Novolog) 0 unit SUBCUT BID [facility] PRN Reason: Protocol Last Admin: 10/21/17 07:47 Dose: Not Given Lorazepam (Ativan) 0.5 mg PO TID@0800,1200,1600 [facility] Last Admin: 10/20/17 08:49 Dose: 0.5 mg Non-Formulary Medication (Amlodipine [Norvasc]) 10 mg PO DAILY [facility] Non-Formulary Medication (Clonidine Hcl [Catapres]) 0.2 mg PO TID [facility] Non-Formulary Medication (Dextran 70/Hypromellose [Artificial Tears]) 2 drop EYEBOTH Q1H PRN PRN Reason: Dry Eyes Non-Formulary Medication (Gabapentin) 600 mg PO TID [facility] Non-Formulary Medication (Ipratropium [place] [Ipratropium [place]]) 2 spray NASBOTH TID [facility] Last Admin: 10/20/17 08:44 Dose: Not Given Non-Formulary Medication (Mirabegron [Myrbetriq]) 25 mg PO DAILY [facility] Non-Formulary Medication (Saliva Stimulant Agents Comb.3 [Biotene Moisturizing Mouth [place]]) 1 spray MM Q4HR PRN PRN Reason: dry mouth Non-Formulary Medication (Sertraline [Zoloft]) 200 mg PO DAILY [facility] Tramadol HCl (Ultram) 50 mg PO DAILY@12 [facility] Tramadol HCl (Ultram) 100 mg PO BID@06,20 [facility] Last Admin: 10/20/17 06:16 Dose: 100 mg - Exam Quality Assessment: Supplemental Oxygen General: Alert, Oriented, Cooperative, No Acute Distress HEENT: Pupils Equal, Pupils Reactive, EOMI, Mucous Membr. Moist/[place] Neck: Supple Lungs: Clear to Auscultation Cardiovascular: Regular Rate, Regular Rhythm GI/Abdominal Exam: Normal Bowel Sounds, Soft, Non-Tender, No Organomegaly, No Distention, No Abnormal Bruit, No Mass, Pelvis Stable (Male) Exam: Deferred Back Exam: Normal Inspection, Full Range of Motion Extremities: Normal Inspection, Normal Range of Motion, Non-Tender, No Pedal Edema, Normal Capillary Refill Skin: Warm, Dry, Intact Neurological: No New Focal Deficit Psy/Mental Status: Alert - Problem List & Annotations (1) Pneumonia SNOMED Code(s): 124783341 Code(s): J18.9 - PNEUMONIA, UNSPECIFIED ORGANISM Status: Acute Priority: High Current Visit: Yes Onset Date: ~09/25/16 Qualifiers: Pneumonia type: due to unspecified organism Laterality: left Lung location: unspecified part of lung Qualified Code(s): J18.9 - Pneumonia, unspecified organism Annotation/Comment:: Patient doing much better today much more alert and able to have a conversation denies any pain shortness of breath but did have fever we 'll continue antibiotics (2) Hyperkalemia SNOMED Code(s): 52481817 Code(s): E87.5 - HYPERKALEMIA Status: Acute Current Visit: Yes Annotation/Comment:: Hyperkalemia secondary to renal failure I will go ahead and diurese him (3) CHF (congestive heart failure) SNOMED Code(s): 86970088 Code(s): I50.9 - HEART FAILURE, UNSPECIFIED Status: Acute Current Visit: Yes Annotation/Comment:: I will decrease him to see we correct his CHF and his hyperkalemia (4) Renal failure (ARF), acute on chronic SNOMED Code(s): 855056461 Code(s): N17.9 - ACUTE KIDNEY FAILURE, UNSPECIFIED; N18.9 - CHRONIC KIDNEY DISEASE, UNSPECIFIED Status: Acute Current Visit: Yes Qualifiers: Acute renal failure type: with acute tubular necrosis Chronic kidney disease stage: unspecified stage Qualified Code(s): N17.0 - Acute kidney failure with tubular necrosis; N18.9 - Chronic kidney disease, unspecified; N18.9 - Chronic kidney disease, unspecified Annotation/Comment:: At this time I feel that we should address couple problems one is his renal failure which is a high cold mobility for in a patient like him with known history of CHF - Problem List Review Problem List Initiated/Reviewed/Updated: Yes - My Orders Last 24 Hours: My Active Orders 10/20/17 16:14 RT Suction Nasopharyngeal [RESPCARE] PRN 10/20/17 20:00 Donepezil [Aricept] 20 mg PO BEDTIME Gabapentin [Neurontin] 300 mg PO Q12HR LORazepam [Ativan] 1 mg PO BEDTIME Melatonin 6 mg PO BEDTIME 10/21/17 00:59 Acetaminophen [Tylenol] 650 mg RECTAL Q4H PRN 10/21/17 08:00 Enoxaparin [Lovenox] 30 mg SUBCUT DAILY 10/21/17 11:40 Insulin Aspart [NovoLOG] See Protocol SUBCUT TIDAC
[2017-10-21] MEDS: Sodium Chloride 0.9% 1,000 ML IV SCH (14:11)
[2017-10-21] MEDS: Donepezil 10 MG Tab PO SCH (20:51)
[2017-10-21] MEDS: Melatonin 3 MG Tab PO SCH (20:52)
[2017-10-21] MEDS: LORazepam 1 MG Tab PO SCH (20:54)
[2017-10-22] MEDS: LORazepam 0.5 MG Tab PO PRN (03:13)
[2017-10-22] MEDS: Albuterol/Ipratropium 3.0-0.5 MG/3 ML Neb Soln NEB SCH ×4 (03:14→20:19)
[2017-10-22] MEDS: Piperacillin/Tazobactam 3.375 GM in Sodium Chloride 0.9% 100 ML IV SCH ×4 (03:15→20:35)
[2017-10-22] MEDS: cefTRIAXone 1 GM in Sodium Chloride 0.9% 100 ML IV SCH ×2 (03:15→17:00)
[2017-10-22] MEDS: Sodium Chloride 0.9% 1,000 ML IV SCH (03:16)
[2017-10-22] MEDS: Insulin Aspart 100 Units/ML 3 ML Pen SUBCUT SCH ×3 (07:41→17:16)
[2017-10-22] MEDS: Aspirin 81 MG Tab.Chew PO SCH (07:42)
[2017-10-22] MEDS: Clopidogrel 75 MG Tab PO SCH (07:42)
[2017-10-22] MEDS: cloNIDine 0.1 MG Tab PO SCH ×3 (07:42→17:14)
[2017-10-22] MEDS: Memantine 10 MG Tab PO SCH ×2 (07:43→17:14)
[2017-10-22] MEDS: Sertraline 50 MG Tab PO SCH (07:43)
[2017-10-22] MEDS: amLODIPine 5 MG Tab PO SCH (07:43)
[2017-10-22] MEDS: Gabapentin 300 MG Cap PO SCH ×2 (07:43→20:20)
[2017-10-22] MEDS: Carvedilol 6.25 MG Tab PO SCH ×2 (07:43→17:14)
[2017-10-22] MEDS: Mirabegron 25 MG Tab Extended Release PO SCH (07:44)
[2017-10-22] MEDS: lamoTRIgine 100 MG Tab PO SCH ×2 (07:44→17:15)
[2017-10-22] MEDS: Furosemide 40 MG Tab PO SCH (07:44)
[2017-10-22] MEDS: LORazepam 0.5 MG Tab PO SCH ×3 (07:44→16:46)
[2017-10-22] MEDS: Enoxaparin 30 MG/0.3 ML Syringe SUBCUT SCH (07:48)
[2017-10-22] MEDS: Sodium Chloride 0.9% 10 ML Syringe FLUSH PRN ×2 (10:44→17:16)
--- NOTE | 2017-10-22 12:22 | PCM.PN ---
- General Info Date of Service: 10/22/17 Functional Status: Reports: Tolerating Diet - Review of Systems General: Reports: Fever (Last night) HEENT: Reports: No Symptoms Pulmonary: Reports: Shortness of Breath Cardiovascular: Reports: No Symptoms Gastrointestinal: Reports: No Symptoms Genitourinary: Reports: No Symptoms (Patient has fairly removed today), Incontinence Musculoskeletal: Reports: No Symptoms Neurological: Reports: No Symptoms Psychiatric: Reports: No Symptoms - Patient Data Vitals - Most Recent: Last Vital Signs Temp 97.5 F 10/22/17 12:00 Pulse 60 10/22/17 12:00 Resp 18 10/22/17 12:00 BP 127/53 L 10/22/17 12:03 Pulse Ox 97 10/22/17 12:00 Weight - Most Recent: 236 lb 8.014 oz I&O - Last 24 Hours: Intake & Output 10/21/17 10/22/17 10/22/17 22:59 06:59 14:59 Intake Total 1180 1300 880 Output Total 950 800 300 Balance 230 500 580 Lab Results Last 24 Hours: Laboratory Results - last 24 hr 10/21/17 10/21/17 10/22/17 Range/Units 06:55 17:06 07:20 WBC (4.0-10.2) K/uL RBC (4.33-5.41) M/uL Hgb (13.1-16.8) g/dL Hct (39.0-49.0) % MCV (84.0-98.0) fL MCH (28.2-33.3) pg MCHC (31.7-36.0) g/dL RDW (11.2-14.1) % Plt Count (150-350) K/uL Neut % (Auto) (45.0-80.0) % Lymph % (Auto) (10.0-50.0) % [place] % (Auto) (2.0-14.0) % Eos % (Auto) (0.0-5.0) % Baso % (Auto) (0.0-2.0) % Neut # (Auto) (1.40-7.00) K/uL Lymph # (Auto) (0.50-3.50) K/uL [place] # (Auto) (0.00-1.00) K/uL Eos # (Auto) (0.00-0.50) K/uL Baso # (Auto) (0.00-0.20) K/uL Sodium 149 H 144 (136-145) mmol/L Potassium 4.1 3.2 L (3.5-5.1) mmol/L Chloride 108 H 105 (98-107) mmol/L Carbon Dioxide 30.0 29.4 (21.0-32.0) mmol/L BUN 62 H 44 H (7-18) mg/dL Creatinine 2.46 H 1.71 H (0.51-1.17) mg/dL Est Cr Clr Drug Dosing 28.52 41.03 mL/min Estimated GFR (MDRD) 26 39 mL/min Glucose 129 H 122 H (74-106) mg/dL POC Glucose 112 H (65-110) mg/dl Calcium 9.3 8.5 (8.5-10.1) mg/dL NT-Pro-B Natriuret Pep (0-125) pg/mL 10/22/17 10/22/17 10/22/17 Range/Units 07:20 07:20 07:20 WBC 9.4 (4.0-10.2) K/uL RBC 3.64 L (4.33-5.41) M/uL Hgb 10.3 L (13.1-16.8) g/dL Hct 33.2 L (39.0-49.0) % MCV 91.2 (84.0-98.0) fL MCH 28.3 (28.2-33.3) pg MCHC 31.0 L (31.7-36.0) g/dL RDW 16.4 H (11.2-14.1) % Plt Count 139 L (150-350) K/uL Neut % (Auto) 65.7 (45.0-80.0) % Lymph % (Auto) 16.9 (10.0-50.0) % [place] % (Auto) 9.6 (2.0-14.0) % Eos % (Auto) 7.4 H (0.0-5.0) % Baso % (Auto) 0.4 (0.0-2.0) % Neut # (Auto) 6.18 (1.40-7.00) K/uL Lymph # (Auto) 1.59 (0.50-3.50) K/uL [place] # (Auto) 0.90 (0.00-1.00) K/uL Eos # (Auto) 0.70 H (0.00-0.50) K/uL Baso # (Auto) 0.04 (0.00-0.20) K/uL Sodium (136-145) mmol/L Potassium (3.5-5.1) mmol/L Chloride (98-107) mmol/L Carbon Dioxide (21.0-32.0) mmol/L BUN (7-18) mg/dL Creatinine (0.51-1.17) mg/dL Est Cr Clr Drug Dosing mL/min Estimated GFR (MDRD) mL/min Glucose (74-106) mg/dL POC Glucose 104 (65-110) mg/dl Calcium (8.5-10.1) mg/dL NT-Pro-B Natriuret Pep 1003 H (0-125) pg/mL 10/22/17 Range/Units 11:51 WBC (4.0-10.2) K/uL RBC (4.33-5.41) M/uL Hgb (13.1-16.8) g/dL Hct (39.0-49.0) % MCV (84.0-98.0) fL MCH (28.2-33.3) pg MCHC (31.7-36.0) g/dL RDW (11.2-14.1) % Plt Count (150-350) K/uL Neut % (Auto) (45.0-80.0) % Lymph % (Auto) (10.0-50.0) % [place] % (Auto) (2.0-14.0) % Eos % (Auto) (0.0-5.0) % Baso % (Auto) (0.0-2.0) % Neut # (Auto) (1.40-7.00) K/uL Lymph # (Auto) (0.50-3.50) K/uL [place] # (Auto) (0.00-1.00) K/uL Eos # (Auto) (0.00-0.50) K/uL Baso # (Auto) (0.00-0.20) K/uL Sodium (136-145) mmol/L Potassium (3.5-5.1) mmol/L Chloride (98-107) mmol/L Carbon Dioxide (21.0-32.0) mmol/L BUN (7-18) mg/dL Creatinine (0.51-1.17) mg/dL Est Cr Clr Drug Dosing mL/min Estimated GFR (MDRD) mL/min Glucose (74-106) mg/dL POC Glucose 150 H (65-110) mg/dl Calcium (8.5-10.1) mg/dL NT-Pro-B Natriuret Pep (0-125) pg/mL Eusebio Results Last 24 Hours: Microbiology 10/20/17 03:20 Aerobic Blood Culture - Preliminary Blood - Venous - Lab Draw NO GROWTH AFTER 2 DAYS Anaerobic Blood Culture - Preliminary NO GROWTH AFTER 2 DAYS 10/20/17 03:50 Urine Culture - Preliminary Urine, Catheterized NO GROWTH AFTER 1 DAY Med Orders - Current: Current Medications Acetaminophen (Tylenol) 650 mg PO Q4H PRN PRN Reason: Fever/Pain Last Admin: 10/21/17 11:46 Dose: 650 mg Acetaminophen (Tylenol) 650 mg RECTAL Q4H PRN PRN Reason: Pain/Fever Last Admin: 10/21/17 01:15 Dose: 650 mg Albuterol (Proventil Neb Soln) 2.5 mg NEB Q4HR PRN PRN Reason: Cough Albuterol/Ipratropium (Duoneb 3.0-0.5 Mg/3 Ml) 3 ml NEB Q4HRRT PRN PRN Reason: Dyspnea Last Admin: 10/21/17 00:52 Dose: 3 ml Albuterol/Ipratropium (Duoneb 3.0-0.5 Mg/3 Ml) 3 ml NEB Q6HRRT MILY Last Admin: 10/22/17 07:48 Dose: 3 ml Amlodipine Besylate (Norvasc) 10 mg PO DAILY [facility] Last Admin: 10/22/17 07:43 Dose: 10 mg Artificial Tears (Liquitears 1.4% Ophth Soln) 0 ml EYEBOTH Q1H PRN PRN Reason: DRY EYES Aspirin (Aspirin) 81 mg PO DAILY [facility] Last Admin: 10/22/17 07:42 Dose: 81 mg Bisacodyl (Dulcolax) 10 mg RECTAL DAILY PRN PRN Reason: Constipation Last Admin: 10/20/17 06:16 Dose: 10 mg Carvedilol (Coreg) 6.25 mg PO BIDMEALS [facility] Last Admin: 10/22/17 07:43 Dose: 6.25 mg Clonidine HCl (Catapres) 0.2 mg PO TID [facility] Last Admin: 10/22/17 12:03 Dose: 0.2 mg Clopidogrel Bisulfate (Plavix) 75 mg PO DAILY [facility] Last Admin: 10/22/17 07:42 Dose: 75 mg Donepezil HCl (Aricept) 20 mg PO BEDTIME [facility] Last Admin: 10/21/17 20:51 Dose: 20 mg Enoxaparin Sodium (Lovenox) 30 mg SUBCUT DAILY [facility] Last Admin: 10/22/17 07:48 Dose: 30 mg Furosemide (Lasix) 40 mg PO DAILY [facility] Gabapentin (Neurontin) 300 mg PO Q12HR [facility] Last Admin: 10/22/17 07:43 Dose: 300 mg Ceftriaxone Sodium 1 gm/ (Sodium Chloride) 100 mls @ 200 mls/hr IV Q12H [facility] Last Admin: 10/22/17 03:15 Dose: 200 mls/hr Piperacillin Sod/Tazobactam (Sod 3.375 gm/ Sodium Chloride) 100 mls @ 200 mls/ hr IV Q6H [facility] Last Admin: 10/22/17 10:05 Dose: 200 mls/hr Insulin Aspart (Novolog) 0 unit SUBCUT TIDAC [facility] PRN Reason: Protocol Last Admin: 10/22/17 12:01 Dose: 1 units Lamotrigine (Lamotrigine) 250 mg PO BID [facility] Last Admin: 10/22/17 07:44 Dose: 250 mg Lorazepam (Ativan) 0.5 mg PO Q4HR PRN PRN Reason: Anxiety Last Admin: 10/22/17 03:13 Dose: 0.5 mg Lorazepam (Ativan) 1 mg PO BEDTIME [facility] Last Admin: 10/21/17 20:54 Dose: 1 mg Lorazepam (Ativan) 0.5 mg PO TID@0800,1200,1600 [facility] Last Admin: 10/22/17 12:02 Dose: 0.5 mg Melatonin (Melatonin) 6 mg PO BEDTIME [facility] Last Admin: 10/21/17 20:52 Dose: 6 mg Memantine (Namenda) 10 mg PO BID [facility] Last Admin: 10/22/17 07:43 Dose: 10 mg Mirabegron (Myrbetriq) 25 mg PO DAILY [facility] Last Admin: 10/22/17 07:44 Dose: 25 mg Nitroglycerin (Nitrostat) 0.4 mg SL ASDIRECTED PRN PRN Reason: Chest Pain Potassium Chloride (Klor-Con M20) 40 meq PO DAILY [facility] Saliva Substitute (Joe-Stir Oral [place]) 0 ml MUCMEM Q4H PRN PRN Reason: DRY MOUTH Sertraline HCl (Zoloft) 200 mg PO DAILY [facility] Last Admin: 10/22/17 07:43 Dose: 200 mg Sodium Chloride (Saline Flush) 10 ml FLUSH ASDIRECTED PRN PRN Reason: Keep Vein Open Last Admin: 10/22/17 10:44 Dose: 10 ml Sodium Chloride (Saline Flush) 10 ml FLUSH ASDIRECTED PRN PRN Reason: Keep Vein Open Triamcinolone Acetonide (Triamcinolone Acetonide 0.1% Crm) 0 gm TOP DAILY PRN PRN Reason: Itching Discontinued Medications Enoxaparin Sodium (Lovenox) 40 mg SUBCUT DAILY [facility] Last Admin: 10/20/17 08:48 Dose: 40 mg Furosemide (Lasix) 40 mg PO BID@08,14 [facility] Last Admin: 10/22/17 07:44 Dose: 40 mg Gabapentin (Neurontin) 600 mg PO TID [facility] Last Admin: 10/20/17 08:53 Dose: 600 mg Sodium Chloride (Normal Saline) 1,000 mls @ 100 mls/hr IV ASDIRECTED [facility] Last Admin: 10/22/17 03:16 Dose: 100 mls/hr Insulin Aspart (Novolog) 0 unit SUBCUT BID [facility] PRN Reason: Protocol Last Admin: 10/21/17 07:47 Dose: Not Given Lorazepam (Ativan) 0.5 mg PO TID@0800,1200,1600 [facility] Last Admin: 10/20/17 08:49 Dose: 0.5 mg Non-Formulary Medication (Amlodipine [Norvasc]) 10 mg PO DAILY [facility] Non-Formulary Medication (Clonidine Hcl [Catapres]) 0.2 mg PO TID [facility] Non-Formulary Medication (Dextran 70/Hypromellose [Artificial Tears]) 2 drop EYEBOTH Q1H PRN PRN Reason: Dry Eyes Non-Formulary Medication (Gabapentin) 600 mg PO TID [facility] Non-Formulary Medication (Ipratropium [place] [Ipratropium [place]]) 2 spray NASBOTH TID [facility] Last Admin: 10/20/17 08:44 Dose: Not Given Non-Formulary Medication (Mirabegron [Myrbetriq]) 25 mg PO DAILY [facility] Non-Formulary Medication (Saliva Stimulant Agents Comb.3 [Biotene Moisturizing Mouth [place]]) 1 spray MM Q4HR PRN PRN Reason: dry mouth Non-Formulary Medication (Sertraline [Zoloft]) 200 mg PO DAILY [facility] Tramadol HCl (Ultram) 50 mg PO DAILY@12 MILY Tramadol HCl (Ultram) 100 mg PO BID@,20 [facility] Last Admin: 10/20/17 06:16 Dose: 100 mg - Exam Quality Assessment: Supplemental Oxygen General: Alert, Oriented, Cooperative HEENT: Pupils Equal, Pupils Reactive, EOMI, Mucous Membr. Moist/[place] Neck: Supple Lungs: Clear to Auscultation, Normal Respiratory Effort Cardiovascular: Regular Rate, Regular Rhythm GI/Abdominal Exam: Normal Bowel Sounds, Soft, Non-Tender, No Organomegaly, No Distention, No Abnormal Bruit, No Mass, Pelvis Stable Extremities: Normal Inspection, Normal Range of Motion, Non-Tender, No Pedal Edema, Normal Capillary Refill Skin: Warm, Dry, Intact Neurological: No New Focal Deficit Psy/Mental Status: Alert - Problem List & Annotations (1) Pneumonia SNOMED Code(s): 422088336 Code(s): J18.9 - PNEUMONIA, UNSPECIFIED ORGANISM Status: Acute Priority: High Current Visit: Yes Onset Date: ~09/25/16 Qualifiers: Pneumonia type: aspiration pneumonia Aspiration pneumonia type: unspecified Laterality: left Lung location: unspecified part of lung Qualified Code(s): J69.0 - Pneumonitis due to inhalation of food and vomit Annotation/Comment:: Patient today doing much better breathing easier renal functions improving no physical signs of congestion at this time I spoke to and explained that he is doing better but that he is in a critical point in his care sets he needs fluids to treat his acute tubular necrosis and his renal failure but this will also worsen his CHF so there is a fine point in his management (2) Hyperkalemia SNOMED Code(s): 93172211 Code(s): E87.5 - HYPERKALEMIA Status: Acute Current Visit: Yes Annotation/Comment:: Patient doing better we will restart his potassium today (3) CHF (congestive heart failure) SNOMED Code(s): 75677386 Code(s): I50.9 - HEART FAILURE, UNSPECIFIED Status: Acute Current Visit: Yes Annotation/Comment:: I will decrease him to see we correct his CHF and his hyperkalemia (4) Renal failure (ARF), acute on chronic SNOMED Code(s): 425884162 Code(s): N17.9 - ACUTE KIDNEY FAILURE, UNSPECIFIED; N18.9 - CHRONIC KIDNEY DISEASE, UNSPECIFIED Status: Acute Current Visit: Yes Qualifiers: Acute renal failure type: with acute tubular necrosis Chronic kidney disease stage: unspecified stage Qualified Code(s): N17.0 - Acute kidney failure with tubular necrosis; N18.9 - Chronic kidney disease, unspecified; N18.9 - Chronic kidney disease, unspecified Annotation/Comment:: CHF was addressed today we will try to find a compromise between treating his recent kidney failure and and his CHF these are too comorbidities that will affect his outcome at this time I spoke with his and explained that if we can't find a fine point we may need to refer him to cardiology to address his CHF she did not understand the complexity of this comorbidity. And the possibilities of a negative outcome such as - Problem List Review Problem List Initiated/Reviewed/Updated: Yes - My Orders Last 24 Hours: My Active Orders 10/21/17 11:40 Insulin Aspart [NovoLOG] See Protocol SUBCUT TIDAC 10/21/17 13:34 CXR [Chest 2V] [CR] Stat 10/22/17 08:47 Chest 2V [CR] Routine 10/22/17 08:50 Bladder Scan [RC] .PRN 10/22/17 12:15 Chest 2V [CR] AM CBC WITH AUTO DIFF [HEME] AM 10/22/17 Lunch Soft Diet [DIET] 10/23/17 05:11 BASIC METABOLIC PANEL,BMP [CHEM] AM 10/23/17 08:00 Furosemide [Lasix] 40 mg PO DAILY Potassium Chloride [Klor-Con M20] 40 meq PO DAILY - Plan Plan:: The patient continues improving I will send him back to [facility] [place] which is his home
[2017-10-22] MEDS: Acetaminophen 325 MG Tab PO PRN (16:46)
[2017-10-22] MEDS: Donepezil 10 MG Tab PO SCH (20:19)
[2017-10-22] MEDS: Melatonin 3 MG Tab PO SCH (20:20)
[2017-10-22] MEDS: LORazepam 1 MG Tab PO SCH (20:20)
[2017-10-23] MEDS: Albuterol/Ipratropium 3.0-0.5 MG/3 ML Neb Soln NEB SCH ×2 (01:44→08:13)
[2017-10-23] MEDS: LORazepam 0.5 MG Tab PO PRN (01:44)
[2017-10-23] MEDS: Sodium Chloride 0.9% 10 ML Syringe FLUSH PRN ×3 (02:30→09:10)
[2017-10-23] MEDS: cefTRIAXone 1 GM in Sodium Chloride 0.9% 100 ML IV SCH (02:32)
[2017-10-23] MEDS: Piperacillin/Tazobactam 3.375 GM in Sodium Chloride 0.9% 100 ML IV SCH ×2 (02:32→09:09)
[2017-10-23] MEDS: Insulin Aspart 100 Units/ML 3 ML Pen SUBCUT SCH ×2 (07:29→11:16)
[2017-10-23] MEDS ORDERED: Furosemide 40 MG Tab PO SCH (08:00)
[2017-10-23] MEDS ORDERED: Potassium Chloride 20 MEQ Tab.ER PO SCH ×2 (08:00→18:00)
[2017-10-23] MEDS: Clopidogrel 75 MG Tab PO SCH (08:12)
[2017-10-23] MEDS: LORazepam 0.5 MG Tab PO SCH ×2 (08:12→11:24)
[2017-10-23] MEDS: Carvedilol 6.25 MG Tab PO SCH (08:12)
[2017-10-23] MEDS: Aspirin 81 MG Tab.Chew PO SCH (08:12)
[2017-10-23] MEDS: Mirabegron 25 MG Tab Extended Release PO SCH (08:12)
[2017-10-23] MEDS: Gabapentin 300 MG Cap PO SCH (08:12)
[2017-10-23] MEDS: Memantine 10 MG Tab PO SCH (08:12)
[2017-10-23] MEDS: Sertraline 50 MG Tab PO SCH (08:13)
[2017-10-23] MEDS: cloNIDine 0.1 MG Tab PO SCH ×2 (08:13→11:24)
[2017-10-23] MEDS: amLODIPine 5 MG Tab PO SCH (08:14)
[2017-10-23] MEDS: Enoxaparin 30 MG/0.3 ML Syringe SUBCUT SCH (08:15)
[2017-10-23] MEDS: lamoTRIgine 100 MG Tab PO SCH (08:42)
[2017-10-23 11:33] VITALS: BP 130/77
--- NOTE | 2017-10-23 11:51 | PCM.PN ---
- General Info Date of Service: 10/23/17 Admission Dx/Problem (Free Text): Pneumonia Patient was admitted to the hospital with pneumonia CHF and hypoxia. Patient responded appropriate to diuresing and antibiotic at this point he is ready to return to his assisted and will be discharged Functional Status: Reports: Tolerating Diet - Review of Systems General: Reports: No Symptoms HEENT: Reports: No Symptoms Pulmonary: Reports: No Symptoms Cardiovascular: Reports: No Symptoms Gastrointestinal: Reports: No Symptoms Genitourinary: Reports: No Symptoms Musculoskeletal: Reports: No Symptoms Skin: Reports: No Symptoms Neurological: Reports: No Symptoms Psychiatric: Reports: No Symptoms - Patient Data Vitals - Most Recent: Last Vital Signs Temp 98.2 F 10/23/17 11:32 Pulse 58 L 10/23/17 11:32 Resp 18 10/23/17 11:32 BP 130/77 10/23/17 11:32 Pulse Ox 96 10/23/17 11:32 Weight - Most Recent: 236 lb 8.014 oz I&O - Last 24 Hours: Intake & Output 10/22/17 10/23/17 10/23/17 22:59 06:59 14:59 Intake Total 920 200 300 Balance 920 200 300 Imaging Impressions - Last 24 Hours: Chest x-ray shows improvement with minimal consolidation left base Lab Results Last 24 Hours: Laboratory Results - last 24 hr 10/22/17 10/22/17 10/23/17 Range/Units 11:51 17:04 07:04 WBC (4.0-10.2) K/uL RBC (4.33-5.41) M/uL Hgb (13.1-16.8) g/dL Hct (39.0-49.0) % MCV (84.0-98.0) fL MCH (28.2-33.3) pg MCHC (31.7-36.0) g/dL RDW (11.2-14.1) % Plt Count (150-350) K/uL Neut % (Auto) (45.0-80.0) % Lymph % (Auto) (10.0-50.0) % [place] % (Auto) (2.0-14.0) % Eos % (Auto) (0.0-5.0) % Baso % (Auto) (0.0-2.0) % Neut # (Auto) (1.40-7.00) K/uL Lymph # (Auto) (0.50-3.50) K/uL [place] # (Auto) (0.00-1.00) K/uL Eos # (Auto) (0.00-0.50) K/uL Baso # (Auto) (0.00-0.20) K/uL Sodium (136-145) mmol/L Potassium (3.5-5.1) mmol/L Chloride (98-107) mmol/L Carbon Dioxide (21.0-32.0) mmol/L BUN (7-18) mg/dL Creatinine (0.51-1.17) mg/dL Est Cr Clr Drug Dosing mL/min Estimated GFR (MDRD) mL/min Glucose (74-106) mg/dL POC Glucose 150 H 181 H 130 H (65-110) mg/dl Calcium (8.5-10.1) mg/dL 10/23/17 10/23/17 10/23/17 Range/Units 07:05 07:05 10:55 WBC 7.3 (4.0-10.2) K/uL RBC 3.65 L (4.33-5.41) M/uL Hgb 10.4 L (13.1-16.8) g/dL Hct 32.0 L (39.0-49.0) % MCV 87.7 D (84.0-98.0) fL MCH 28.5 (28.2-33.3) pg MCHC 32.5 (31.7-36.0) g/dL RDW 15.4 H (11.2-14.1) % Plt Count 125 L (150-350) K/uL Neut % (Auto) 63.3 (45.0-80.0) % Lymph % (Auto) 15.8 (10.0-50.0) % [place] % (Auto) 11.4 (2.0-14.0) % Eos % (Auto) 8.8 H (0.0-5.0) % Baso % (Auto) 0.7 (0.0-2.0) % Neut # (Auto) 4.63 (1.40-7.00) K/uL Lymph # (Auto) 1.15 (0.50-3.50) K/uL [place] # (Auto) 0.83 (0.00-1.00) K/uL Eos # (Auto) 0.64 H (0.00-0.50) K/uL Baso # (Auto) 0.05 (0.00-0.20) K/uL Sodium 144 (136-145) mmol/L Potassium 3.0 L (3.5-5.1) mmol/L Chloride 103 (98-107) mmol/L Carbon Dioxide 30.5 (21.0-32.0) mmol/L BUN 30 H (7-18) mg/dL Creatinine 1.31 H (0.51-1.17) mg/dL Est Cr Clr Drug Dosing 53.55 mL/min Estimated GFR (MDRD) 53 mL/min Glucose 130 H (74-106) mg/dL POC Glucose 134 H (65-110) mg/dl Calcium 8.9 (8.5-10.1) mg/dL Eusebio Results Last 24 Hours: Microbiology 10/20/17 03:50 Urine Culture - Final Urine, Catheterized Gram Positive Cocci 10/20/17 03:20 Aerobic Blood Culture - Preliminary Blood - Venous - Lab Draw NO GROWTH AFTER 3 DAYS Anaerobic Blood Culture - Preliminary NO GROWTH AFTER 3 DAYS Med Orders - Current: Current Medications Acetaminophen (Tylenol) 650 mg PO Q4H PRN PRN Reason: Fever/Pain Last Admin: 10/22/17 16:46 Dose: 650 mg Acetaminophen (Tylenol) 650 mg RECTAL Q4H PRN PRN Reason: Pain/Fever Last Admin: 10/21/17 01:15 Dose: 650 mg Albuterol (Proventil Neb Soln) 2.5 mg NEB Q4HR PRN PRN Reason: Cough Albuterol/Ipratropium (Duoneb 3.0-0.5 Mg/3 Ml) 3 ml NEB Q4HRRT PRN PRN Reason: Dyspnea Last Admin: 10/21/17 00:52 Dose: 3 ml Albuterol/Ipratropium (Duoneb 3.0-0.5 Mg/3 Ml) 3 ml NEB Q6HRRT [facility] Last Admin: 10/23/17 08:13 Dose: 3 ml Amlodipine Besylate (Norvasc) 10 mg PO DAILY [facility] Last Admin: 10/23/17 08:14 Dose: 10 mg Artificial Tears (Liquitears 1.4% Ophth Soln) 0 ml EYEBOTH Q1H PRN PRN Reason: DRY EYES Aspirin (Aspirin) 81 mg PO DAILY [facility] Last Admin: 10/23/17 08:12 Dose: 81 mg Bisacodyl (Dulcolax) 10 mg RECTAL DAILY PRN PRN Reason: Constipation Last Admin: 10/20/17 06:16 Dose: 10 mg Carvedilol (Coreg) 6.25 mg PO BIDMEALS [facility] Last Admin: 10/23/17 08:12 Dose: 6.25 mg Clonidine HCl (Catapres) 0.2 mg PO TID [facility] Last Admin: 10/23/17 11:24 Dose: 0.2 mg Clopidogrel Bisulfate (Plavix) 75 mg PO DAILY [facility] Last Admin: 10/23/17 08:12 Dose: 75 mg Donepezil HCl (Aricept) 20 mg PO BEDTIME [facility] Last Admin: 10/22/17 20:19 Dose: 20 mg Enoxaparin Sodium (Lovenox) 30 mg SUBCUT DAILY [facility] Last Admin: 10/23/17 08:15 Dose: 30 mg Furosemide (Lasix) 40 mg PO DAILY [facility] Last Admin: 10/23/17 08:13 Dose: 40 mg Gabapentin (Neurontin) 300 mg PO Q12HR [facility] Last Admin: 10/23/17 08:12 Dose: 300 mg Ceftriaxone Sodium 1 gm/ (Sodium Chloride) 100 mls @ 200 mls/hr IV Q12H [facility] Last Admin: 10/23/17 02:32 Dose: 200 mls/hr Piperacillin Sod/Tazobactam (Sod 3.375 gm/ Sodium Chloride) 100 mls @ 200 mls/ hr IV Q6H [facility] Last Admin: 10/23/17 09:09 Dose: 200 mls/hr Insulin Aspart (Novolog) 0 unit SUBCUT TIDAC [facility] PRN Reason: Protocol Last Admin: 10/23/17 11:16 Dose: Not Given Lamotrigine (Lamotrigine) 250 mg PO BID [facility] Last Admin: 10/23/17 08:42 Dose: 250 mg Lorazepam (Ativan) 0.5 mg PO Q4HR PRN PRN Reason: Anxiety Last Admin: 10/23/17 01:44 Dose: 0.5 mg Lorazepam (Ativan) 1 mg PO BEDTIME [facility] Last Admin: 10/22/17 20:20 Dose: 1 mg Lorazepam (Ativan) 0.5 mg PO TID@0800,1200,1600 [facility] Last Admin: 10/23/17 11:24 Dose: 0.5 mg Melatonin (Melatonin) 6 mg PO BEDTIME [facility] Last Admin: 10/22/17 20:20 Dose: 6 mg Memantine (Namenda) 10 mg PO BID [facility] Last Admin: 10/23/17 08:12 Dose: 10 mg Mirabegron (Myrbetriq) 25 mg PO DAILY [facility] Last Admin: 10/23/17 08:12 Dose: 25 mg Nitroglycerin (Nitrostat) 0.4 mg SL ASDIRECTED PRN PRN Reason: Chest Pain Potassium Chloride (Klor-Con M20) 40 meq PO DAILY [facility] Last Admin: 10/23/17 08:13 Dose: 40 meq Saliva Substitute (Joe-Stir Oral [place]) 0 ml MUCMEM Q4H PRN PRN Reason: DRY MOUTH Sertraline HCl (Zoloft) 200 mg PO DAILY [facility] Last Admin: 10/23/17 08:13 Dose: 200 mg Sodium Chloride (Saline Flush) 10 ml FLUSH ASDIRECTED PRN PRN Reason: Keep Vein Open Last Admin: 10/23/17 09:10 Dose: 10 ml Sodium Chloride (Saline Flush) 10 ml FLUSH ASDIRECTED PRN PRN Reason: Keep Vein Open Last Admin: 10/22/17 20:00 Dose: 10 ml Triamcinolone Acetonide (Triamcinolone Acetonide 0.1% Crm) 0 gm TOP DAILY PRN PRN Reason: Itching Discontinued Medications Enoxaparin Sodium (Lovenox) 40 mg SUBCUT DAILY [facility] Last Admin: 10/20/17 08:48 Dose: 40 mg Furosemide (Lasix) 40 mg PO BID@08,14 [facility] Last Admin: 10/22/17 07:44 Dose: 40 mg Gabapentin (Neurontin) 600 mg PO TID [facility] Last Admin: 10/20/17 08:53 Dose: 600 mg Sodium Chloride (Normal Saline) 1,000 mls @ 100 mls/hr IV ASDIRECTED [facility] Last Admin: 10/22/17 03:16 Dose: 100 mls/hr Insulin Aspart (Novolog) 0 unit SUBCUT BID [facility] PRN Reason: Protocol Last Admin: 10/21/17 07:47 Dose: Not Given Lorazepam (Ativan) 0.5 mg PO TID@0800,1200,1600 [facility] Last Admin: 10/20/17 08:49 Dose: 0.5 mg Non-Formulary Medication (Amlodipine [Norvasc]) 10 mg PO DAILY [facility] Non-Formulary Medication (Clonidine Hcl [Catapres]) 0.2 mg PO TID [facility] Non-Formulary Medication (Dextran 70/Hypromellose [Artificial Tears]) 2 drop EYEBOTH Q1H PRN PRN Reason: Dry Eyes Non-Formulary Medication (Gabapentin) 600 mg PO TID [facility] Non-Formulary Medication (Ipratropium [place] [Ipratropium [place]]) 2 spray NASBOTH TID [facility] Last Admin: 10/20/17 08:44 Dose: Not Given Non-Formulary Medication (Mirabegron [Myrbetriq]) 25 mg PO DAILY [facility] Non-Formulary Medication (Saliva Stimulant Agents Comb.3 [Biotene Moisturizing Mouth [place]]) 1 spray MM Q4HR PRN PRN Reason: dry mouth Non-Formulary Medication (Sertraline [Zoloft]) 200 mg PO DAILY [facility] Tramadol HCl (Ultram) 50 mg PO DAILY@12 [facility] Tramadol HCl (Ultram) 100 mg PO BID@06,20 [facility] Last Admin: 10/20/17 06:16 Dose: 100 mg - Exam Quality Assessment: Supplemental Oxygen General: Alert, Oriented, Cooperative, No Acute Distress HEENT: Pupils Equal, Pupils Reactive, EOMI, Mucous Membr. Moist/[place] Neck: Supple Lungs: Clear to Auscultation Cardiovascular: Regular Rate, Regular Rhythm GI/Abdominal Exam: Normal Bowel Sounds, Soft, Non-Tender, No Organomegaly, No Distention, No Abnormal Bruit, No Mass, Pelvis Stable (Male) Exam: Deferred, Other (Simpson catheter removed very well) Back Exam: Decreased Range of Motion, Muscle Spasm Extremities: Normal Inspection, Normal Range of Motion, Non-Tender, No Pedal Edema, Normal Capillary Refill Skin: Warm, Dry, Intact Neurological: No New Focal Deficit Psy/Mental Status: Alert, Normal Affect, Normal Mood - Problem List & Annotations (1) Pneumonia SNOMED Code(s): 409963019 Code(s): J18.9 - PNEUMONIA, UNSPECIFIED ORGANISM Status: Acute Priority: High Current Visit: Yes Onset Date: ~09/25/16 Qualifiers: Pneumonia type: aspiration pneumonia Aspiration pneumonia type: unspecified Laterality: left Lung location: unspecified part of lung Qualified Code(s): J69.0 - Pneumonitis due to inhalation of food and vomit Annotation/Comment:: Patient today doing much better breathing easier renal functions improving no physical signs of congestion at this time I spoke to and explained that he is doing better but that he is in a critical point in his care sets he needs fluids to treat his acute tubular necrosis and his renal failure but this will also worsen his CHF so there is a fine point in his management (2) Hyperkalemia SNOMED Code(s): 75820197 Code(s): E87.5 - HYPERKALEMIA Status: Acute Current Visit: Yes Annotation/Comment:: Patient doing better we will restart his potassium today (3) CHF (congestive heart failure) SNOMED Code(s): 47801232 Code(s): I50.9 - HEART FAILURE, UNSPECIFIED Status: Acute Current Visit: Yes Annotation/Comment:: I will decrease him to see we correct his CHF and his hyperkalemia (4) Renal failure (ARF), acute on chronic SNOMED Code(s): 064729129 Code(s): N17.9 - ACUTE KIDNEY FAILURE, UNSPECIFIED; N18.9 - CHRONIC KIDNEY DISEASE, UNSPECIFIED Status: Acute Current Visit: Yes Qualifiers: Acute renal failure type: with acute tubular necrosis Chronic kidney disease stage: unspecified stage Qualified Code(s): N17.0 - Acute kidney failure with tubular necrosis; N18.9 - Chronic kidney disease, unspecified; N18.9 - Chronic kidney disease, unspecified Annotation/Comment:: CHF was addressed today we will try to find a compromise between treating his recent kidney failure and and his CHF these are too comorbidities that will affect his outcome at this time I spoke with his and explained that if we can't find a fine point we may need to refer him to cardiology to address his CHF she did not understand the complexity of this comorbidity. And the possibilities of a negative outcome such as - Problem List Review Problem List Initiated/Reviewed/Updated: Yes - My Orders Last 24 Hours: My Active Orders 10/22/17 12:15 Chest 2V [CR] AM 10/22/17 15:43 Discontinue Telemetry Monitoring [Cardiac Monitoring Discontinue] [RC] Click to Edit Vital Signs [RC] QSHIFT 10/22/17 Lunch Soft Diet [DIET] 10/23/17 05:11 Chest 2V [CR] AM 10/23/17 08:00 Furosemide [Lasix] 40 mg PO DAILY Potassium Chloride [Klor-Con M20] 40 meq PO DAILY - Assessment Assessment:: Patient doing much better will be sent home on antibiotics - Plan Plan:: The patient continues improving I will send him back to [facility] in [place] which is his home DC to [facility]
[2017-10-23] MEDS ORDERED: Menthol/Methyl Salicylate 85 GM Tube TOP PRN (12:08)
[2017-10-23] MEDS ORDERED: CAPSAICIN TP PRN (12:08)
[2017-10-23] MEDS ORDERED: traMADol 50 MG Tab PO PRN (12:08)
[2017-10-23] MEDS ORDERED: Bisacodyl 5 MG Tab PO PRN (12:08)
[2017-10-23] MEDS ORDERED: MENTHOL TP PRN (12:08)
[2017-10-23] MEDS ORDERED: Non-Formulary Medication 1 Each TOP PRN (12:08)
--- NOTE | 2017-10-23 12:08 | PCM.DCSUM1 ---
Discharge Summary - Hospital Course Free Text/Narrative:: Patient 77-year-old who was admitted to the hospital with acute respiratory distress chest x-ray revealed pneumonia patient was aggressively treated with antibiotic and by the third day had responded appropriately and since then has improved gradually we were concerned because of his cold mobility diagnosis of CHF and renal failure secondary totreatment all original pneumonia but has come around and is doing quite well I had discussed condition with and she knew of the critical situation - Discharge Data Discharge Date: 10/23/17 Discharge Disposition: Home, Self-Care 01 Preliminary Cause of *Q: Multi System Organ Failure Condition: Good - Discharge Diagnosis/Problem(s) (1) Pneumonia SNOMED Code(s): 833170714 ICD Code: J18.9 - PNEUMONIA, UNSPECIFIED ORGANISM Status: Acute Priority : High Current Visit: Yes Onset Date: ~09/25/16 Problem Details: Patient today doing much better breathing easier renal functions improving no physical signs of congestion at this time I spoke to and explained that he is doing better but that he is in a critical point in his care sets he needs fluids to treat his acute tubular necrosis and his renal failure but this will also worsen his CHF so there is a fine point in his management Qualifiers: Pneumonia type: aspiration pneumonia Aspiration pneumonia type: unspecified Laterality: left Lung location: unspecified part of lung Qualified Code(s): J69.0 - Pneumonitis due to inhalation of food and vomit (2) Hyperkalemia SNOMED Code(s): 93024286 ICD Code: E87.5 - HYPERKALEMIA Status: Acute Current Visit: Yes Problem Details: Patient doing better we will restart his potassium today (3) CHF (congestive heart failure) SNOMED Code(s): 06751937 ICD Code: I50.9 - HEART FAILURE, UNSPECIFIED Status: Acute Current Visit : Yes Problem Details: I will decrease him to see we correct his CHF and his hyperkalemia (4) Renal failure (ARF), acute on chronic SNOMED Code(s): 876479718 ICD Code: N17.9 - ACUTE KIDNEY FAILURE, UNSPECIFIED; N18.9 - CHRONIC KIDNEY DISEASE, UNSPECIFIED Status: Acute Current Visit: Yes Problem Details: CHF was addressed today we will try to find a compromise between treating his recent kidney failure and and his CHF these are too comorbidities that will affect his outcome at this time I spoke with his and explained that if we can't find a fine point we may need to refer him to cardiology to address his CHF she did not understand the complexity of this comorbidity. And the possibilities of a negative outcome such as Qualifiers: Acute renal failure type: with acute tubular necrosis Chronic kidney disease stage: unspecified stage Qualified Code(s): N17.0 - Acute kidney failure with tubular necrosis; N18.9 - Chronic kidney disease, unspecified; N18.9 - Chronic kidney disease, unspecified - Patient Instructions Diet: Heart Healthy Diet Driving: Do Not Drive Showering/Bathing: May Shower - Discharge Plan Home Medications: Home Meds LORazepam [Ativan] 0.5 mg PO 08,12,16 06/11/14 [History] LORazepam [Ativan] 0.5 mg PO Q4HR PRN 06/11/14 [History] Memantine HCl [Namenda] 10 mg PO BID 06/11/14 [History] Multivitamin with Minerals [Multivitamins with Minerals] 2 tab PO BID 06/11/14 [ History] Sennosides/Docusate Sodium [Senna-S] 2 tab PO BID 06/11/14 [History] amLODIPine [Norvasc] 10 mg PO DAILY 06/11/14 [History] lamoTRIgine [Lamictal] 250 mg PO BID 06/11/14 [History] metFORMIN [Glucophage] 500 mg PO BID 06/11/14 [History] Aspirin [Silver Chewable Aspirin] 81 mg PO DAILY 09/25/16 [History] Bisacodyl [Dulcolax] 10 mg PO DAILY PRN 09/25/16 [History] Cholecalciferol (Vitamin D3) [Vitamin D3] 5,000 unit PO DAILY 09/25/16 [History] Docusate Sodium [Colace] 100 mg PO BID 09/25/16 [History] Donepezil HCl 20 mg PO BEDTIME 09/25/16 [History] Fluticasone Propionate [Flonase] 2 spray NASBOTH BID@1000,1600 09/25/16 [History ] Gabapentin [Neurontin] 600 mg PO TID 09/25/16 [History] Ipratropium [place] 2 spray NASBOTH TID 09/25/16 [History] Levothyroxine Sodium [Synthroid] 25 mcg PO DAILY@0730 09/25/16 [History] Loratadine [Claritin] 10 mg PO DAILY 09/25/16 [History] Sertraline [Zoloft] 200 mg PO DAILY 09/25/16 [History] Triamcinolone Acetonide [Triamcinolone Acetonide 0.1% Crm] 1 applic TOP DAILY PRN 09/25/16 [History] traMADol HCl [Tramadol HCl] 100 mg PO BID@06,20 09/25/16 [History] Albuterol [Proventil Neb Soln] 2.5 mg NEB Q4HR PRN 08/17/17 [History] Capsaicin/Menthol [Salonpas Gel-Patch Hot] 1 each TP BID PRN 08/17/17 [History] Clopidogrel [Plavix] 75 mg PO DAILY 08/17/17 [History] Ferrous Sulfate 325 mg PO BID 08/17/17 [History] LORazepam 1 mg PO BEDTIME 08/17/17 [History] Melatonin 6 mg PO BEDTIME 08/17/17 [History] Nitroglycerin [Nitrostat] 0.4 mg SL ASDIRECTED PRN 08/17/17 [History] Pantoprazole Sodium [Protonix] 40 mg PO DAILY 08/17/17 [History] Polyethylene Glycol 3350 [MiraLAX] 17 gm PO BEDTIME 08/17/17 [History] atorvaSTATin [Lipitor] 40 mg PO BEDTIME 08/17/17 [History] cloNIDine HCl [Catapres] 0.2 mg PO TID 08/17/17 [History] traMADol HCl [Tramadol HCl] 50 mg PO DAILY@12 08/17/17 [History] traMADol HCl [Tramadol HCl] 100 mg PO DAILY PRN 08/17/17 [History] Non-Formulary Medication [NF Drug] 1 applic TOP DAILY PRN 08/19/17 [History] Acetaminophen [Tylenol] 650 mg PO Q4H PRN tablet 08/20/17 [Rx] Albuterol/Ipratropium [DuoNeb 3.0-0.5 MG/3 ML] 3 ml NEB Q4HRRT PRN neb [Rx] Carvedilol [Coreg] 6.25 mg PO BIDMEALS tablet 08/20/17 [Rx] Lisinopril [Prinivil] 10 mg PO QPM #20 tablet 08/20/17 [Rx] Potassium Chloride [Klor-Con M20] 20 meq PO TID #30 tab.er 08/20/17 [Rx] Albuterol/Ipratropium [DuoNeb 3.0-0.5 MG/3 ML] 3 ml NEB Q6HR 10/20/17 [History] Dextran 70/Hypromellose [Artificial Tears] 2 drop EYEBOTH Q1H PRN 10/20/17 [ History] Furosemide [Lasix] 40 mg PO BID@08,14 10/20/17 [History] Menthol/Methyl Salicylate [Icy Hot Cream] 1 applic TP QID PRN 10/20/17 [History] Mirabegron [Myrbetriq] 25 mg PO DAILY 10/20/17 [History] Saliva Stimulant Agents Comb.3 [Biotene Moisturizing Mouth [place]] 1 spray MM Q4HR PRN 10/20/17 [History] Forms: ED Department Discharge Referrals: Mikael Subramanian MD [Primary Care Provider] - - Patient Data Vitals - Most Recent: Last Vital Signs Temp 98.2 F 10/23/17 11:32 Pulse 58 L 10/23/17 11:32 Resp 18 10/23/17 11:32 BP 130/77 10/23/17 11:32 Pulse Ox 96 10/23/17 11:32 Weight - Most Recent: 236 lb 8.014 oz I&O - Last 24 hours: Intake & Output 10/22/17 10/23/17 10/23/17 22:59 06:59 14:59 Intake Total 920 200 300 Balance 920 200 300 Lab Results - Last 24 hrs: Laboratory Results - last 24 hr 10/22/17 10/23/17 10/23/17 Range/Units 17:04 07:04 07:05 WBC (4.0-10.2) K/uL RBC (4.33-5.41) M/uL Hgb (13.1-16.8) g/dL Hct (39.0-49.0) % MCV (84.0-98.0) fL MCH (28.2-33.3) pg MCHC (31.7-36.0) g/dL RDW (11.2-14.1) % Plt Count (150-350) K/uL Neut % (Auto) (45.0-80.0) % Lymph % (Auto) (10.0-50.0) % [place] % (Auto) (2.0-14.0) % Eos % (Auto) (0.0-5.0) % Baso % (Auto) (0.0-2.0) % Neut # (Auto) (1.40-7.00) K/uL Lymph # (Auto) (0.50-3.50) K/uL [place] # (Auto) (0.00-1.00) K/uL Eos # (Auto) (0.00-0.50) K/uL Baso # (Auto) (0.00-0.20) K/uL Sodium 144 (136-145) mmol/L Potassium 3.0 L (3.5-5.1) mmol/L Chloride 103 (98-107) mmol/L Carbon Dioxide 30.5 (21.0-32.0) mmol/L BUN 30 H (7-18) mg/dL Creatinine 1.31 H (0.51-1.17) mg/dL Est Cr Clr Drug Dosing 53.55 mL/min Estimated GFR (MDRD) 53 mL/min Glucose 130 H (74-106) mg/dL POC Glucose 181 H 130 H (65-110) mg/dl Calcium 8.9 (8.5-10.1) mg/dL 10/23/17 10/23/17 Range/Units 07:05 10:55 WBC 7.3 (4.0-10.2) K/uL RBC 3.65 L (4.33-5.41) M/uL Hgb 10.4 L (13.1-16.8) g/dL Hct 32.0 L (39.0-49.0) % MCV 87.7 D (84.0-98.0) fL MCH 28.5 (28.2-33.3) pg MCHC 32.5 (31.7-36.0) g/dL RDW 15.4 H (11.2-14.1) % Plt Count 125 L (150-350) K/uL Neut % (Auto) 63.3 (45.0-80.0) % Lymph % (Auto) 15.8 (10.0-50.0) % [place] % (Auto) 11.4 (2.0-14.0) % Eos % (Auto) 8.8 H (0.0-5.0) % Baso % (Auto) 0.7 (0.0-2.0) % Neut # (Auto) 4.63 (1.40-7.00) K/uL Lymph # (Auto) 1.15 (0.50-3.50) K/uL Cat[place] # (Auto) 0.83 (0.00-1.00) K/uL Eos # (Auto) 0.64 H (0.00-0.50) K/uL Baso # (Auto) 0.05 (0.00-0.20) K/uL Sodium (136-145) mmol/L Potassium (3.5-5.1) mmol/L Chloride (98-107) mmol/L Carbon Dioxide (21.0-32.0) mmol/L BUN (7-18) mg/dL Creatinine (0.51-1.17) mg/dL Est Cr Clr Drug Dosing mL/min Estimated GFR (MDRD) mL/min Glucose (74-106) mg/dL POC Glucose 134 H (65-110) mg/dl Calcium (8.5-10.1) mg/dL DENISE Results - Last 24 hrs: Microbiology 10/20/17 03:50 Urine Culture - Final Urine, Catheterized Gram Positive Cocci 10/20/17 03:20 Aerobic Blood Culture - Preliminary Blood - Venous - Lab Draw NO GROWTH AFTER 3 DAYS Anaerobic Blood Culture - Preliminary NO GROWTH AFTER 3 DAYS Med Orders - Current: Current Medications Acetaminophen (Tylenol) 650 mg PO Q4H PRN PRN Reason: Fever/Pain Last Admin: 10/22/17 16:46 Dose: 650 mg Acetaminophen (Tylenol) 650 mg RECTAL Q4H PRN PRN Reason: Pain/Fever Last Admin: 10/21/17 01:15 Dose: 650 mg Albuterol (Proventil Neb Soln) 2.5 mg NEB Q4HR PRN PRN Reason: Cough Albuterol/Ipratropium (Duoneb 3.0-0.5 Mg/3 Ml) 3 ml NEB Q4HRRT PRN PRN Reason: Dyspnea Last Admin: 10/21/17 00:52 Dose: 3 ml Albuterol/Ipratropium (Duoneb 3.0-0.5 Mg/3 Ml) 3 ml NEB Q6HRRT [facility] Last Admin: 10/23/17 08:13 Dose: 3 ml Amlodipine Besylate (Norvasc) 10 mg PO DAILY [facility] Last Admin: 10/23/17 08:14 Dose: 10 mg Artificial Tears (Liquitears 1.4% Ophth Soln) 0 ml EYEBOTH Q1H PRN PRN Reason: DRY EYES Aspirin (Aspirin) 81 mg PO DAILY [facility] Last Admin: 10/23/17 08:12 Dose: 81 mg Bisacodyl (Dulcolax) 10 mg RECTAL DAILY PRN PRN Reason: Constipation Last Admin: 10/20/17 06:16 Dose: 10 mg Carvedilol (Coreg) 6.25 mg PO BIDMEALS [facility] Last Admin: 10/23/17 08:12 Dose: 6.25 mg Clonidine HCl (Catapres) 0.2 mg PO TID [facility] Last Admin: 10/23/17 11:24 Dose: 0.2 mg Clopidogrel Bisulfate (Plavix) 75 mg PO DAILY [facility] Last Admin: 10/23/17 08:12 Dose: 75 mg Donepezil HCl (Aricept) 20 mg PO BEDTIME [facility] Last Admin: 10/22/17 20:19 Dose: 20 mg Enoxaparin Sodium (Lovenox) 30 mg SUBCUT DAILY [facility] Last Admin: 10/23/17 08:15 Dose: 30 mg Furosemide (Lasix) 40 mg PO DAILY [facility] Last Admin: 10/23/17 08:13 Dose: 40 mg Gabapentin (Neurontin) 300 mg PO Q12HR [facility] Last Admin: 10/23/17 08:12 Dose: 300 mg Ceftriaxone Sodium 1 gm/ (Sodium Chloride) 100 mls @ 200 mls/hr IV Q12H [facility] Last Admin: 10/23/17 02:32 Dose: 200 mls/hr Piperacillin Sod/Tazobactam (Sod 3.375 gm/ Sodium Chloride) 100 mls @ 200 mls/ hr IV Q6H [facility] Last Admin: 10/23/17 09:09 Dose: 200 mls/hr Insulin Aspart (Novolog) 0 unit SUBCUT TIDAC [facility] PRN Reason: Protocol Last Admin: 10/23/17 11:16 Dose: Not Given Lamotrigine (Lamotrigine) 250 mg PO BID [facility] Last Admin: 10/23/17 08:42 Dose: 250 mg Lorazepam (Ativan) 0.5 mg PO Q4HR PRN PRN Reason: Anxiety Last Admin: 10/23/17 01:44 Dose: 0.5 mg Lorazepam (Ativan) 1 mg PO BEDTIME [facility] Last Admin: 10/22/17 20:20 Dose: 1 mg Lorazepam (Ativan) 0.5 mg PO TID@0800,1200,1600 [facility] Last Admin: 10/23/17 11:24 Dose: 0.5 mg Melatonin (Melatonin) 6 mg PO BEDTIME [facility] Last Admin: 10/22/17 20:20 Dose: 6 mg Memantine (Namenda) 10 mg PO BID [facility] Last Admin: 10/23/17 08:12 Dose: 10 mg Mirabegron (Myrbetriq) 25 mg PO DAILY [facility] Last Admin: 10/23/17 08:12 Dose: 25 mg Nitroglycerin (Nitrostat) 0.4 mg SL ASDIRECTED PRN PRN Reason: Chest Pain Potassium Chloride (Klor-Con M20) 40 meq PO DAILY [facility] Last Admin: 10/23/17 08:13 Dose: 40 meq Saliva Substitute (Joe-Stir Oral [place]) 0 ml MUCMEM Q4H PRN PRN Reason: DRY MOUTH Sertraline HCl (Zoloft) 200 mg PO DAILY [facility] Last Admin: 10/23/17 08:13 Dose: 200 mg Sodium Chloride (Saline Flush) 10 ml FLUSH ASDIRECTED PRN PRN Reason: Keep Vein Open Last Admin: 10/23/17 09:10 Dose: 10 ml Sodium Chloride (Saline Flush) 10 ml FLUSH ASDIRECTED PRN PRN Reason: Keep Vein Open Last Admin: 10/22/17 20:00 Dose: 10 ml Triamcinolone Acetonide (Triamcinolone Acetonide 0.1% Crm) 0 gm TOP DAILY PRN PRN Reason: Itching Discontinued Medications Enoxaparin Sodium (Lovenox) 40 mg SUBCUT DAILY [facility] Last Admin: 10/20/17 08:48 Dose: 40 mg Furosemide (Lasix) 40 mg PO BID@08,14 [facility] Last Admin: 10/22/17 07:44 Dose: 40 mg Gabapentin (Neurontin) 600 mg PO TID [facility] Last Admin: 10/20/17 08:53 Dose: 600 mg Sodium Chloride (Normal Saline) 1,000 mls @ 100 mls/hr IV ASDIRECTED [facility] Last Admin: 10/22/17 03:16 Dose: 100 mls/hr Insulin Aspart (Novolog) 0 unit SUBCUT BID [facility] PRN Reason: Protocol Last Admin: 10/21/17 07:47 Dose: Not Given Lorazepam (Ativan) 0.5 mg PO TID@0800,1200,1600 [facility] Last Admin: 10/20/17 08:49 Dose: 0.5 mg Non-Formulary Medication (Amlodipine [Norvasc]) 10 mg PO DAILY [facility] Non-Formulary Medication (Clonidine Hcl [Catapres]) 0.2 mg PO TID [facility] Non-Formulary Medication (Dextran 70/Hypromellose [Artificial Tears]) 2 drop EYEBOTH Q1H PRN PRN Reason: Dry Eyes Non-Formulary Medication (Gabapentin) 600 mg PO TID [facility] Non-Formulary Medication (Ipratropium [place] [Ipratropium [place]]) 2 spray NASBOTH TID [facility] Last Admin: 10/20/17 08:44 Dose: Not Given Non-Formulary Medication (Mirabegron [Myrbetriq]) 25 mg PO DAILY [facility] Non-Formulary Medication (Saliva Stimulant Agents Comb.3 [Biotene Moisturizing Mouth [place]]) 1 spray MM Q4HR PRN PRN Reason: dry mouth Non-Formulary Medication (Sertraline [Zoloft]) 200 mg PO DAILY [facility] Tramadol HCl (Ultram) 50 mg PO DAILY@12 [facility] Tramadol HCl (Ultram) 100 mg PO BID@06,20 [facility] Last Admin: 10/20/17 06:16 Dose: 100 mg *Q Meaningful Use (DIS) - VTE *Q VTE Criteria *Q: - Stroke *Q Stroke Criteria *Q: - AMI *Q AMI Criteria *Q:
[2017-10-23] MEDS ORDERED: Fluticasone Propionate Nasal Spray 16 GM Bottle NASBOTH SCH (16:00)
[2017-10-23] MEDS ORDERED: Docusate Sodium 100 MG Cap PO SCH (18:00)
[2017-10-23] MEDS ORDERED: metFORMIN 500 MG Tab PO SCH (18:00)
[2017-10-23] MEDS ORDERED: Lisinopril 10 MG Tab PO SCH (18:00)
[2017-10-23] MEDS ORDERED: Ferrous Sulfate 325 MG Tab PO SCH (18:00)
[2017-10-23] MEDS ORDERED: atorvaSTATin 40 MG Tab PO SCH (20:00)
[2017-10-23] MEDS ORDERED: Polyethylene Glycol 3350 Powder 17 GM Packet PO SCH (20:00)
[2017-10-24] MEDS ORDERED: Levothyroxine 25 MCG Tab PO SCH (07:30)
[2017-10-24] MEDS ORDERED: Cholecalciferol (Vitamin D3) 1,000 Unit Tab PO SCH (08:00)
[2017-10-24] MEDS ORDERED: Pantoprazole 40 MG Tab.CR PO SCH (08:00)
[2017-10-24] MEDS ORDERED: Loratadine 10 MG Tab PO SCH (08:00)
== END 2017-10-23 13:45 | DRG 194 ==
LOC: LL.ED 02:20 → UNDOADMIN 03:08 → LL.MS 03:08 → UNDODISIN 10-23 13:45
PROVIDERS: ADMIT Family Medicine; ATTEND Family Medicine
DX: J18.9 Pneumonia, unspecified organism (principal); N17.9 Acute kidney failure, unspecified; R09.02 Hypoxemia; I25.10 Atherosclerotic heart disease of native coronary artery without angina pectoris; I12.9 Hypertensive chronic kidney disease with stage 1 through stage 4 chronic kidney disease, or unspecified chronic kidney disease; N18.9 Chronic kidney disease, unspecified; Z87.891 Personal history of nicotine dependence; G30.9 Alzheimer's disease, unspecified; F02.80 Dementia in other diseases classified elsewhere, unspecified severity, without behavioral disturbance, psychotic disturbance, mood disturbance, and anxiety; E87.5 Hyperkalemia; J30.9 Allergic rhinitis, unspecified; E78.00 Pure hypercholesterolemia, unspecified; N40.0 Benign prostatic hyperplasia without lower urinary tract symptoms; M19.90 Unspecified osteoarthritis, unspecified site; G89.29 Other chronic pain; M54.2 Cervicalgia; M10.9 Gout, unspecified; F32.9 Major depressive disorder, single episode, unspecified; F41.9 Anxiety disorder, unspecified; F10.21 Alcohol dependence, in remission; E11.9 Type 2 diabetes mellitus without complications; E03.9 Hypothyroidism, unspecified; E66.9 Obesity, unspecified; Z88.8 Allergy status to other drugs, medicaments and biological substances; Z79.84 Long term (current) use of oral hypoglycemic drugs; Z79.82 Long term (current) use of aspirin; Z79.899 Other long term (current) drug therapy; D50.9 Iron deficiency anemia, unspecified; R06.03 Acute respiratory distress
CPT/HCPCS: 36000; 36415; 51702; 71045; 71046; 80048; 81001; 82962; 83880; 84484; 85025; 87040; 87086; 87804; 94640; 99285; A9270-GY; J0696; J1650; J1815-GY; J2543; J7030; J7050

== ENCOUNTER 2018-10-07 02:35 | Inpatient (IN) | payer MEDICARE, BC ==
--- NOTE | 2018-10-07 03:06 | EDM.PDOC ---
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 mellitus type: type 2 Diabetes mellitus terminal computer operator insulin use: without terminal computer operator use Diabetes mellitus complication status: with kidney complications Diabetes mellitus complication detail: with chronic kidney disease Chronic kidney disease stage: stage 3 (moderate) Qualified Code(s): E11.22 - Type 2 diabetes mellitus with diabetic chronic kidney disease Hypertension Qualifiers: Hypertension type: essential hypertension Qualified Code(s): I10 - Essential ( primary) hypertension Anemia Qualifiers: Anemia type: iron deficiency Iron deficiency anemia type: unspecified iron deficiency Qualified Code(s): D50.9 - Iron deficiency anemia, unspecified - Discharge Information *PRESCRIPTION DRUG MONITORING PROGRAM REVIEWED*: Not Applicable *COPY OF PRESCRIPTION DRUG MONITORING REPORT IN PATIENT VESNA: Not Applicable - Problem List & Annotations (1) Pneumonia SNOMED Code(s): 892999131 Code(s): J18.9 - PNEUMONIA, UNSPECIFIED ORGANISM Status: Acute Priority: High Current Visit: No Onset Date: 07/19/18 Annotation/Comment:: Probable bilateral pneumonia based on history and clinical exam with pulmonary infiltrates difficult to assess secondary to his current CHF as above. Blood cultures 2 were collected. Attempt to obtain sputum specimen. Initiate IV Rocephin and IV Zithromax therapy. Dr. Rico assumes care in this morning. Qualifiers: Pneumonia type: aspiration pneumonia Aspiration pneumonia type: unspecified Laterality: left Lung location: unspecified part of lung Qualified Code(s): J69.0 - Pneumonitis due to inhalation of food and vomit (2) CHF (congestive heart failure) SNOMED Code(s): 54557489 Code(s): I50.9 - HEART FAILURE, UNSPECIFIED Status: Chronic Priority: High Current Visit: No Annotation/Comment:: Moderate CHF by chest x-ray and elevated BNP. Initiate IV Lasix therapy with Simpson catheter placed for accurate I's and O's secondary to urinary incontinence. Note NO CODE STATUS with no further cardiac workup, echocardiogram, hospital transfer, etc. per patient and his 's previous request. Qualifiers: Heart failure type: unspecified Heart failure chronicity: acute Qualified Code(s): I50.9 - Heart failure, unspecified (3) CAD (coronary artery disease) SNOMED Code(s): 76308381 Code(s): I25.10 - ATHSCL HEART DISEASE OF [place] CORONARY ARTERY W/O ANG PCTRS Status: Chronic Priority: Medium Current Visit: No Annotation/ Comment:: No chest pain or anginal type symptoms. EKG is actually improved from previous evaluation, however patient is a poor historian. Note NO CODE STATUS and previous history of a non-STEMI in September 2017. Moderate CK elevation with otherwise normal cardiac enzymes and no direct evidence of rhabdomyolysis. IV fluids as below. Long-term prognosis poor. Qualifiers: Coronary Disease-Associated Artery/Lesion type: [place] artery [place] vs. transplanted heart: [place] heart Associated angina: without angina Qualified Code(s): I25.10 - Atherosclerotic heart disease of [place] coronary artery without angina pectoris (4) Need for comfort care SNOMED Code(s): 107156417, 818320118 Code(s): EGF5913 - Status: Chronic Priority: High Current Visit: No Annotation/Comment:: Continue comfort/palliative care only, including no transfer this confirmed today by the patient's during recent hospitalization in June and per [facility] records. Long-term prognosis poor. (5) D-dimer, elevated SNOMED Code(s): 371711930 Code(s): R79.89 - OTHER SPECIFIED ABNORMAL FINDINGS OF BLOOD CHEMISTRY Status: Chronic Priority: Medium Current Visit: No Annotation/Comment:: Known history of previous intermittent d-dimer elevation with negative venous Doppler studies as above. No direct clinical evidence of DVT or PE. Consider CTA of the chest depending on his clinical course. Subcutaneous Lovenox will be initiated as DVT prophylaxis. (6) COPD (chronic obstructive pulmonary disease) SNOMED Code(s): 27396319 Code(s): J44.9 - CHRONIC OBSTRUCTIVE PULMONARY DISEASE, UNSPECIFIED Status : Chronic Priority: Medium Current Visit: No Annotation/Comment:: As above. Continue nebulizer treatments during this hospitalization. Qualifiers: COPD type: COPD with acute lower respiratory infection Qualified Code(s): J44.0 - Chronic obstructive pulmonary disease with acute lower respiratory infection (7) Dementia SNOMED Code(s): 03959887 Code(s): F03.90 - UNSPECIFIED DEMENTIA WITHOUT BEHAVIORAL DISTURBANCE Status: Chronic Priority: Medium Current Visit: No Annotation/Comment:: Possible history of distant CVA as above. Neurological status relatively stable with exception of some sedation secondary to current medication. Mixed vascular and Alzheimers component of his mental status with possible additional colic encephalopathy as above. Qualifiers: Dementia type: Alzheimer's disease Alzheimer's disease onset: late-onset Dementia behavioral disturbance: without behavioral disturbance Qualified Code (s): G30.1 - Alzheimer's disease with late onset; F02.80 - Dementia in other diseases classified elsewhere without behavioral disturbance (8) Diabetes mellitus SNOMED Code(s): 95748568 Code(s): E11.9 - TYPE 2 DIABETES MELLITUS WITHOUT COMPLICATIONS Status: Chronic Priority: Medium Current Visit: No Annotation/Comment:: Stable by history. Glycosylated hemoglobin with next set of blood work. Qualifiers: Diabetes mellitus type: type 2 Diabetes mellitus detention insulin use: without terminal computer operator use Diabetes mellitus complication status: with kidney complications Diabetes mellitus complication detail: with chronic kidney disease Chronic kidney disease stage: stage 3 (moderate) Qualified Code(s): E11.22 - Type 2 diabetes mellitus with diabetic chronic kidney disease; N18.3 - Chronic kidney disease, stage 3 (moderate) (9) Mixed anxiety and depressive disorder SNOMED Code(s): 914929869 Code(s): F41.8 - OTHER SPECIFIED ANXIETY DISORDERS Status: Chronic Priority: Medium Current Visit: No Annotation/Comment:: Stable by history (10) Osteoarthritis SNOMED Code(s): 088317718 Code(s): M19.90 - UNSPECIFIED OSTEOARTHRITIS, UNSPECIFIED SITE Status: Chronic Priority: Medium Current Visit: No Annotation/Comment:: Stable by history Qualifiers: Osteoarthritis location: multiple joints Osteoarthritis type: primary Qualified Code(s): M15.0 - Primary generalized (osteo)arthritis (11) Peptic reflux disease SNOMED Code(s): 067538796 Code(s): K21.9 - GASTRO-ESOPHAGEAL REFLUX DISEASE WITHOUT ESOPHAGITIS Status: Chronic Priority: Medium Current Visit: No Annotation/Comment:: Stable by history. (12) Anemia SNOMED Code(s): 736773096 Code(s): D64.9 - ANEMIA, UNSPECIFIED Status: Acute Priority: Medium Current Visit: No Onset Date: 08/17/17 Annotation/Comment:: Known history of iron deficiency anemia with macrocytosis today. TIBC panel, ferritin level, folic acid and vitamin B-12 levels with it of blood work.. Continue to observe for now. No evidence of acute GI bleed, etc. with anemia actually improved from previous hospitalization. Qualifiers: Anemia type: iron deficiency Iron deficiency anemia type: unspecified iron deficiency Qualified Code(s): D50.9 - Iron deficiency anemia, unspecified (13) Hypernatremia SNOMED Code(s): 49174369 Code(s): E87.0 - HYPEROSMOLALITY AND HYPERNATREMIA Status: Chronic Priority: High Current Visit: No Annotation/Comment:: Previous history of hypernatremia with possible mild dehydration with careful balance of IV hydration and IV Lasix therapy secondary to CHF as above. Discontinue any aggravating medications for this condition. (14) Renal insufficiency SNOMED Code(s): 576315277, 803026186 Code(s): N28.9 - DISORDER OF KIDNEY AND URETER, UNSPECIFIED Status: Chronic Priority: Medium Current Visit: No Onset Date: 08/18/17 Annotation/Comment:: Progressive renal insufficiency possibly secondary dehydration. IV Hydration and IV Lasix therapy with caution as above. Note secondary hyperkalemia. (15) Dehydration SNOMED Code(s): 36260052 Code(s): E86.0 - DEHYDRATION Status: Acute Priority: High Current Visit : No Onset Date: 10/07/18 Annotation/Comment:: As above - Problem List Review Problem List Initiated/Reviewed/Updated: Yes - My Orders Last 24 Hours: My Active Orders 10/07/18 03:06 Sodium Chloride 0.9% [Saline Flush] 10 ml FLUSH ASDIRECTED PRN Resuscitation Status Routine 10/07/18 03:08 Cardiac Monitoring [RC] CONTINUOUS Communication Order [RC] ROUTINE Oxygen Therapy, ED [RC] CONTINUOUS Pulse Oximetry [RC] CONTINUOUS Up With Assistance [RC] ASDIRECTED Chest 1V Frontal [CR] Stat CULTURE SPUTUM + SMEAR [RM] Urgent Blood Culture x2 Reflex Set [OM.PC] Stat Obtain Past Medical Record [OM.PC] Stat Peripheral IV Insertion Adult [OM.PC] Stat 10/07/18 03:10 Peripheral IV Care [RC] . DIRECTED 10/07/18 03:20 CULTURE BLOOD [BC] Stat 10/07/18 03:26 CULTURE BLOOD [BC] Stat 10/07/18 03:36 CULTURE STREP A CONFIRMATION [RM] Stat STREP SCRN A RAPID W CULT CONF [RM] Stat 10/07/18 03:38 EKG Documentation Completion [RC] ASDIRECTED 10/07/18 04:10 Urinary Catheter Assessment [RC] ASDIRECTED 10/07/18 04:15 Simpson Catheter Insertion [Insert Urinary Catheter] [OM.PC] Q24H 10/07/18 04:22 CULTURE URINE [RM] Routine 10/07/18 Breakfast Nothing Per Oral Diet [DIET] - Assessment/Plan Admission H&P: Please use this note as an admission H&P Last 24 Hours: My Active Orders 10/07/18 03:06 Sodium Chloride 0.9% [Saline Flush] 10 ml FLUSH ASDIRECTED PRN Resuscitation Status Routine 10/07/18 03:08 Cardiac Monitoring [RC] CONTINUOUS Communication Order [RC] ROUTINE Oxygen Therapy, ED [RC] CONTINUOUS Pulse Oximetry [RC] CONTINUOUS Up With Assistance [RC] ASDIRECTED Chest 1V Frontal [CR] Stat CULTURE SPUTUM + SMEAR [RM] Urgent Blood Culture x2 Reflex Set [OM.PC] Stat Obtain Past Medical Record [OM.PC] Stat Peripheral IV Insertion Adult [OM.PC] Stat 10/07/18 03:10 Peripheral IV Care [RC] . DIRECTED 10/07/18 03:20 CULTURE BLOOD [BC] Stat 10/07/18 03:26 CULTURE BLOOD [BC] Stat 10/07/18 03:36 CULTURE STREP A CONFIRMATION [RM] Stat STREP SCRN A RAPID W CULT CONF [RM] Stat 10/07/18 03:38 EKG Documentation Completion [RC] ASDIRECTED 10/07/18 04:10 Urinary Catheter Assessment [RC] ASDIRECTED 10/07/18 04:15 Simpson Catheter Insertion [Insert Urinary Catheter] [OM.PC] Q24H 10/07/18 04:22 CULTURE URINE [RM] Routine 10/07/18 Breakfast Nothing Per Oral Diet [DIET] Assessment:: As above Plan: As above. Extensive precautions were given to the patient, who is in agreement with the treatment plan. Armen Rico M.D. at the [facility] symptoms care in the a.m. The patient will require about 3-4 days of inpatient/ acute care secondary to multiple health problems as above.
[2018-10-07] MEDS: Sodium Chloride 0.9% 10 ML Syringe FLUSH PRN (03:52)
[2018-10-07 04:17] LABS: CHLORIDE,CL 120 mmol/L (98-107); SODIUM,NA 157 mmol/L (136-145)
[2018-10-07] MEDS ORDERED: Bisacodyl 10 MG Supp RECTAL PRN (06:59)
[2018-10-07] MEDS ORDERED: Loperamide 2 MG Tab PO PRN (06:59)
[2018-10-07] MEDS ORDERED: Nitroglycerin 0.4 MG Tab.SL SL PRN (06:59)
[2018-10-07] MEDS ORDERED: Bisacodyl 5 MG Tab PO PRN (06:59)
[2018-10-07] MEDS ORDERED: Acetaminophen 325 MG Tab PO PRN (07:02)
[2018-10-07] MEDS ORDERED: Albuterol 0.083% 2.5 MG/3 ML Neb Soln NEB PRN (07:02)
[2018-10-07] MEDS ORDERED: Albuterol/Ipratropium 3.0-0.5 MG/3 ML Neb Soln NEB PRN (07:02)
[2018-10-07] MEDS ORDERED: Furosemide 40 MG/4 ML VIAL IVPUSH SCH (07:30)
[2018-10-07] MEDS ORDERED: Sodium Chloride 0.45% 1,000 ML IV SCH (07:30)
[2018-10-07] MEDS ORDERED: metFORMIN 500 MG Tab PO SCH (08:00)
[2018-10-07] MEDS ORDERED: IPRATROPIUM INH SCH (08:00)
[2018-10-07] MEDS ORDERED: SERTRALINE PO SCH (08:00)
[2018-10-07] MEDS ORDERED: Non-Formulary Medication 1 Each (Gabapentin 600 MG) PO SCH (08:00)
[2018-10-07] MEDS ORDERED: Memantine 10 MG Tab PO SCH (08:00)
[2018-10-07] MEDS: Piperacillin/Tazobactam 3.375 GM in Sodium Chloride 0.9% 100 ML IV SCH ×3 (08:31→21:36)
[2018-10-07] MEDS: Enoxaparin 30 MG/0.3 ML Syringe SUBCUT SCH (09:04)
[2018-10-07] MEDS: Budesonide 0.5 MG/2 ML Neb Susp NEB SCH ×2 (09:05→21:35)
[2018-10-07] MEDS: Albuterol/Ipratropium 3.0-0.5 MG/3 ML Neb Soln NEB SCH ×3 (09:05→21:35)
[2018-10-07] MEDS: Fluticasone Propionate Nasal Spray 16 GM Bottle NASBOTH SCH ×2 (09:30→16:06)
[2018-10-07] MEDS: Levothyroxine 25 MCG Tab PO SCH (10:38)
[2018-10-07] MEDS: LORazepam 1 MG Tab PO SCH ×4 (10:38→21:36)
[2018-10-07] MEDS: Carvedilol 6.25 MG Tab PO SCH ×2 (10:38→17:46)
[2018-10-07] MEDS: Aspirin 81 MG Tab.Chew PO SCH (10:38)
[2018-10-07] MEDS: Dextromethorphan/guaiFENesin 600-30 MG Tab.ER PO SCH ×2 (10:39→17:51)
[2018-10-07] MEDS: Loratadine 10 MG Tab PO SCH (10:39)
[2018-10-07] MEDS: Ferrous Sulfate 325 MG Tab PO SCH ×2 (10:39→17:45)
[2018-10-07] MEDS: Docusate Sodium 100 MG Cap PO SCH ×2 (10:39→17:45)
[2018-10-07] MEDS: lamoTRIgine 100 MG Tab PO SCH ×2 (10:39→17:44)
[2018-10-07] MEDS: Clopidogrel 75 MG Tab PO SCH (10:40)
[2018-10-07] MEDS: Cholecalciferol (Vitamin D3) 1,000 Unit Tab PO SCH (10:40)
[2018-10-07] MEDS: amLODIPine 5 MG Tab PO SCH (10:40)
[2018-10-07] MEDS: Sodium Chloride 0.9% 10 ML Syringe FLUSH SCH ×2 (10:40→21:40)
--- NOTE | 2018-10-07 17:02 | PCM.SN ---
- Free Text/Narrative Note: Patient is seen reviewed labs we will order BMP for 811 tonight increase his IV rate to 250/h recheck BMP secondary to renal failure
[2018-10-07] MEDS ORDERED: Lisinopril 10 MG Tab PO SCH (18:00)
[2018-10-07] MEDS: Sodium Chloride 0.45% 1,000 ML IV SCH ×2 (18:06→21:37)
[2018-10-07] MEDS: Donepezil 10 MG Tab PO SCH (21:35)
[2018-10-07] MEDS: Polyethylene Glycol 3350 Powder 17 GM Packet PO SCH (21:35)
[2018-10-07] MEDS: atorvaSTATin 40 MG Tab PO SCH (21:37)
[2018-10-07] MEDS: Melatonin 3 MG Tab PO SCH (21:40)
[2018-10-08] MEDS: Albuterol/Ipratropium 3.0-0.5 MG/3 ML Neb Soln NEB SCH ×4 (01:47→20:04)
[2018-10-08] MEDS: Piperacillin/Tazobactam 3.375 GM in Sodium Chloride 0.9% 100 ML IV SCH ×4 (01:47→20:00)
[2018-10-08] MEDS: Sodium Chloride 0.45% 1,000 ML IV SCH ×4 (02:04→20:43)
[2018-10-08] MEDS: Sodium Chloride 0.9% 10 ML Syringe FLUSH SCH ×2 (08:16→20:00)
[2018-10-08] MEDS: Budesonide 0.5 MG/2 ML Neb Susp NEB SCH ×2 (08:18→20:04)
[2018-10-08] MEDS: Furosemide 40 MG/4 ML VIAL IVPUSH SCH (08:18)
[2018-10-08] MEDS: Levothyroxine 25 MCG Tab PO SCH (08:27)
[2018-10-08] MEDS: Carvedilol 6.25 MG Tab PO SCH ×2 (08:27→17:03)
[2018-10-08] MEDS: Aspirin 81 MG Tab.Chew PO SCH (08:27)
[2018-10-08] MEDS: Docusate Sodium 100 MG Cap PO SCH ×2 (08:28→17:03)
[2018-10-08] MEDS: LORazepam 1 MG Tab PO SCH ×4 (08:28→20:04)
[2018-10-08] MEDS: Ferrous Sulfate 325 MG Tab PO SCH ×2 (08:28→17:04)
[2018-10-08] MEDS: lamoTRIgine 100 MG Tab PO SCH ×2 (08:28→17:04)
[2018-10-08] MEDS: Loratadine 10 MG Tab PO SCH (08:28)
[2018-10-08] MEDS: Cholecalciferol (Vitamin D3) 1,000 Unit Tab PO SCH (08:29)
[2018-10-08] MEDS: Clopidogrel 75 MG Tab PO SCH (08:29)
[2018-10-08] MEDS: amLODIPine 5 MG Tab PO SCH (08:29)
[2018-10-08] MEDS: Enoxaparin 30 MG/0.3 ML Syringe SUBCUT SCH (08:29)
[2018-10-08] MEDS: Dextromethorphan/guaiFENesin 600-30 MG Tab.ER PO SCH ×2 (08:29→17:04)
[2018-10-08] MEDS: Sodium Chloride 0.9% 10 ML Syringe FLUSH PRN ×2 (09:10→20:03)
[2018-10-08] MEDS: Fluticasone Propionate Nasal Spray 16 GM Bottle NASBOTH SCH ×2 (09:11→17:03)
--- NOTE | 2018-10-08 12:28 | PCM.PN ---
- General Info Date of Service: 10/08/18 Admission Dx/Problem (Free Text): Patient was admitted with pneumonia, chronic on acute renal failure hypernatremia and hyperchloremia hyperkalemia at this time electrolytes improving renal function improving white count improving patient sleepy probably secondary to medication we'll continue to hold morning Ativan Functional Status: Reports: Other (Simpson catheter) - Review of Systems General: Reports: Weakness, Fatigue HEENT: Reports: No Symptoms Pulmonary: Denies: Shortness of Breath Cardiovascular: Reports: Edema (Mild) Gastrointestinal: Reports: No Symptoms Genitourinary: Reports: Other (Simpson catheter) Musculoskeletal: Reports: Other (Patient is a Holter lift at home) Skin: Reports: Other (Patient has a sacral ulcer) Neurological: Reports: Confusion Psychiatric: Reports: Confusion - Patient Data Vitals - Most Recent: Last Vital Signs Temp 98 F 10/08/18 08:00 Pulse 69 10/08/18 08:27 Resp 20 10/08/18 08:00 BP 170/72 H 10/08/18 08:29 Pulse Ox 98 10/08/18 08:00 Weight - Most Recent: 234 lb I&O - Last 24 Hours: Intake & Output 10/07/18 10/08/18 10/08/18 22:59 06:59 14:59 Intake Total 1940 2800 Output Total 3063 894 6719 Balance 640 2100 -1000 Lab Results Last 24 Hours: Laboratory Results - last 24 hr 10/07/18 10/07/18 10/08/18 Range/Units 15:58 22:55 06:42 WBC 10.2 (4.0-10.2) K/uL RBC 3.29 L (4.33-5.41) M/uL Hgb 9.9 L (13.1-16.8) g/dL Hct 32.6 L (39.0-49.0) % MCV 99.1 H (84.0-98.0) fL MCH 30.1 (28.2-33.3) pg MCHC 30.4 L (31.7-36.0) g/dL RDW 14.7 H (11.2-14.1) % Plt Count 156 (150-350) K/uL Neut % (Auto) 72.1 (45.0-80.0) % Lymph % (Auto) 15.2 (10.0-50.0) % [place] % (Auto) 9.1 (2.0-14.0) % Eos % (Auto) 3.4 (0.0-5.0) % Baso % (Auto) 0.2 (0.0-2.0) % Neut # (Auto) 7.35 H (1.40-7.00) K/uL Lymph # (Auto) 1.55 (0.50-3.50) K/uL [place] # (Auto) 0.93 (0.00-1.00) K/uL Eos # (Auto) 0.35 (0.00-0.50) K/uL Baso # (Auto) 0.02 (0.00-0.20) K/uL D-Dimer, Quantitative (0-400) ng/mL Sodium 157 H* 154 H* (136-145) mmol/L Potassium 5.1 4.6 (3.5-5.1) mmol/L Chloride 120 H* 116 H* (98-107) mmol/L Carbon Dioxide 27.1 26.7 (21.0-32.0) mmol/L BUN 89 H 80 H (7-18) mg/dL Creatinine 3.04 H* 2.70 H (0.51-1.17) mg/dL Est Cr Clr Drug Dosing 21.35 24.03 mL/min Estimated GFR (MDRD) 20 23 mL/min Glucose 127 H 120 H (74-106) mg/dL Calcium 8.8 8.5 (8.5-10.1) mg/dL Iron (50-175) ug/dL TIBC (250-450) ug/dL % Saturation Ferritin (8-388) ng/mL Total Bilirubin (0.2-1.0) mg/dL AST (15-37) U/L ALT (12-78) U/L Alkaline Phosphatase (46-116) IU/L Creatine Kinase (26-308) U/L Creatine Kinase Index (0.0-2.5) % CK-MB (CK-2) (0.00-3.60) ng/mL Troponin I (0.000-0.056) ng/mL NT-Pro-B Natriuret Pep (0-125) pg/mL Total Protein (6.4-8.2) g/dL Albumin (3.4-5.0) g/dL Vitamin B12 (193-986) pg/mL Folate (8.6-58.9) ng/mL 10/08/18 10/08/18 10/08/18 Range/Units 06:42 06:42 06:42 WBC (4.0-10.2) K/uL RBC (4.33-5.41) M/uL Hgb (13.1-16.8) g/dL Hct (39.0-49.0) % MCV (84.0-98.0) fL MCH (28.2-33.3) pg MCHC (31.7-36.0) g/dL RDW (11.2-14.1) % Plt Count (150-350) K/uL Neut % (Auto) (45.0-80.0) % Lymph % (Auto) (10.0-50.0) % [place] % (Auto) (2.0-14.0) % Eos % (Auto) (0.0-5.0) % Baso % (Auto) (0.0-2.0) % Neut # (Auto) (1.40-7.00) K/uL Lymph # (Auto) (0.50-3.50) K/uL [place] # (Auto) (0.00-1.00) K/uL Eos # (Auto) (0.00-0.50) K/uL Baso # (Auto) (0.00-0.20) K/uL D-Dimer, Quantitative 333 (0-400) ng/mL Sodium 152 H* (136-145) mmol/L Potassium 4.2 (3.5-5.1) mmol/L Chloride 115 H (98-107) mmol/L Carbon Dioxide 25.9 (21.0-32.0) mmol/L BUN 69 H (7-18) mg/dL Creatinine 2.41 H (0.51-1.17) mg/dL Est Cr Clr Drug Dosing 26.92 mL/min Estimated GFR (MDRD) 26 mL/min Glucose 114 H (74-106) mg/dL Calcium 8.6 (8.5-10.1) mg/dL Iron 30 L (50-175) ug/dL TIBC 179 L (250-450) ug/dL % Saturation 16.96261 Ferritin 133 (8-388) ng/mL Total Bilirubin 0.3 (0.2-1.0) mg/dL AST 19 (15-37) U/L ALT 19 (12-78) U/L Alkaline Phosphatase 81 (46-116) IU/L Creatine Kinase 304 (26-308) U/L Creatine Kinase Index 0.6 (0.0-2.5) % CK-MB (CK-2) 1.80 (0.00-3.60) ng/mL Troponin I 0.010 (0.000-0.056) ng/mL NT-Pro-B Natriuret Pep 590 H (0-125) pg/mL Total Protein 6.0 L (6.4-8.2) g/dL Albumin 2.9 L (3.4-5.0) g/dL Vitamin B12 26 L (193-986) pg/mL Folate 10.3 (8.6-58.9) ng/mL Eusebio Results Last 24 Hours: Microbiology 10/07/18 03:36 Quick Strep Confirmation Culture - Final Throat NO GROUP A STREP ISOLATED Group A Streptococcus Rapid Screen - Final NEGATIVE STREP A SCREEN 10/07/18 04:22 Urine Culture - Preliminary Urine, Clean Catch NO GROWTH AFTER 1 DAY 10/07/18 03:20 Aerobic Blood Culture - Preliminary Blood - Venous NO GROWTH AFTER 1 DAY Anaerobic Blood Culture - Preliminary NO GROWTH AFTER 1 DAY 10/07/18 03:26 Aerobic Blood Culture - Preliminary Blood - Venous - Lab Draw NO GROWTH AFTER 1 DAY Anaerobic Blood Culture - Preliminary NO GROWTH AFTER 1 DAY Med Orders - Current: Current Medications Acetaminophen (Tylenol) 650 mg PO Q4H PRN PRN Reason: Pain/Fever Albuterol (Proventil Neb Soln) 2.5 mg NEB Q2H PRN PRN Reason: Dyspnea Albuterol/Ipratropium (Duoneb 3.0-0.5 Mg/3 Ml) 3 ml NEB Q4HRRT PRN PRN Reason: Dyspnea Albuterol/Ipratropium (Duoneb 3.0-0.5 Mg/3 Ml) 3 ml NEB Q6HRRT [facility] [place] Last Admin: 10/08/18 08:18 Dose: 3 ml Amlodipine Besylate (Norvasc) 10 mg PO DAILY [facility] [place] Last Admin: 10/08/18 08:29 Dose: 10 mg Aspirin (Aspirin) 81 mg PO DAILY [facility] [place] Last Admin: 10/08/18 08:27 Dose: 81 mg Atorvastatin Calcium (Lipitor) 40 mg PO BEDTIME [facility] [place] Last Admin: 10/07/18 21:37 Dose: 40 mg Bisacodyl (Dulcolax) 10 mg RECTAL DAILY PRN PRN Reason: Constipation Bisacodyl (Dulcolax) 10 mg PO DAILY PRN PRN Reason: Constipation Budesonide (Pulmicort) 0.5 mg NEB BIDRT [facility] [place] Last Admin: 10/08/18 08:18 Dose: 0.5 mg Carvedilol (Coreg) 6.25 mg PO BIDMEALS [facility] [place] Last Admin: 10/08/18 08:27 Dose: 6.25 mg Cholecalciferol (Vitamin D3) 5,000 units PO DAILY [facility] [place] Last Admin: 10/08/18 08:29 Dose: 5,000 units Clopidogrel Bisulfate (Plavix) 75 mg PO DAILY [facility] [place] Last Admin: 10/08/18 08:29 Dose: 75 mg Docusate Sodium (Colace) 100 mg PO BID [facility] [place] Last Admin: 10/08/18 08:28 Dose: 100 mg Donepezil HCl (Aricept) 20 mg PO BEDTIME [facility] [place] Last Admin: 10/07/18 21:35 Dose: 20 mg Enoxaparin Sodium (Lovenox) 30 mg SUBCUT Q24H [facility] [place] Last Admin: 10/08/18 08:29 Dose: 30 mg Ferrous Sulfate (Ferrous Sulfate) 325 mg PO BID [facility] [place] Last Admin: 10/08/18 08:28 Dose: 325 mg Fluticasone Propionate (Flonase) 0 gm NASBOTH BID@1000,1600 [facility] [place] Last Admin: 10/08/18 09:11 Dose: 2 spray Furosemide (Lasix) 40 mg IVPUSH DAILY [facility] [place] Last Admin: 10/08/18 08:18 Dose: 40 mg Guaifenesin/Dextromethorphan (Mucinex Dm Er 600-30 Mg) 1 tab PO BID [facility] [place] Last Admin: 10/08/18 08:29 Dose: 1 tab Piperacillin Sod/Tazobactam (Sod 3.375 gm/ Sodium Chloride) 100 mls @ 200 mls/ hr IV Q6H [facility] [place] Last Admin: 10/08/18 08:14 Dose: 200 mls/hr Vancomycin HCl 1 gm/ Sodium (Chloride) 250 mls @ 165 mls/hr IV Q24H [facility] [place] Last Admin: 10/08/18 09:10 Dose: 165 mls/hr Sodium Chloride (Sodium Chloride 0.45%) 1,000 mls @ 125 mls/hr IV ASDIRECTED [facility] [place] Lamotrigine (Lamotrigine) 250 mg PO BID [facility] [place] Last Admin: 10/08/18 08:28 Dose: 250 mg Levothyroxine Sodium (Levothyroxine) 25 mcg PO DAILY@0730 [facility] [place] Last Admin: 10/08/18 08:27 Dose: 25 mcg Loperamide HCl (Imodium Ad) 2 mg PO ASDIRECTED PRN PRN Reason: Diarrhea Loratadine (Claritin) 10 mg PO DAILY [facility] [place] Last Admin: 10/08/18 08:28 Dose: 10 mg Lorazepam (Ativan) 1 mg PO QID [facility] [place] Last Admin: 10/08/18 11:30 Dose: Not Given Melatonin (Melatonin) 6 mg PO BEDTIME [facility] [place] Last Admin: 10/07/18 21:40 Dose: 6 mg Nitroglycerin (Nitrostat) 0.4 mg SL ASDIRECTED PRN PRN Reason: Chest Pain Non-Formulary Medication (Ipratropium [Atrovent 0.06% Nasal [place]]) 2 sprays INH TID [facility] [place] Polyethylene Glycol (Miralax) 17 gm PO BEDTIME [facility] [place] Last Admin: 10/07/18 21:35 Dose: 17 gm Senna/Docusate Sodium (Senna Plus) 2 tab PO BID [facility] [place] Last Admin: 10/08/18 08:29 Dose: 2 tab Sodium Chloride (Saline Flush) 10 ml FLUSH ASDIRECTED PRN PRN Reason: Keep Vein Open Last Admin: 10/08/18 09:10 Dose: 10 ml Sodium Chloride (Saline Flush) 10 ml FLUSH Q12H [facility] [place] Last Admin: 10/08/18 08:16 Dose: 10 ml Vancomycin HCl (Pharmacy To Dose - Vancomycin) 1 dose .XX ASDIRECTED [facility] [place] Discontinued Medications Furosemide (Lasix) 40 mg IVPUSH Q12H [facility] [place] Last Admin: 10/07/18 09:04 Dose: 40 mg Sodium Chloride (Sodium Chloride 0.45%) 1,000 mls @ 100 mls/hr IV ASDIRECTED [facility] [place] Last Admin: 10/07/18 09:03 Dose: 100 mls/hr Sodium Chloride (Sodium Chloride 0.45%) 1,000 mls @ 250 mls/hr IV ASDIRECTED [facility] [place] Last Admin: 10/08/18 08:26 Dose: 250 mls/hr Lisinopril (Prinivil) 10 mg PO QPM [facility] [place] Memantine (Namenda) 10 mg PO BID [facility] [place] Metformin HCl (Glucophage) 500 mg PO BIDMEALS [facility] [place] Last Admin: 10/07/18 10:39 Dose: Not Given Non-Formulary Medication (Gabapentin) 600 mg PO TID [facility] [place] Non-Formulary Medication (Sertraline [Zoloft]) 200 mg PO DAILY [facility] [place] - Exam Quality Assessment: Supplemental Oxygen General: Cooperative, Lethargic HEENT: Pupils Equal, Pupils Reactive, EOMI, Mucous Membr. Moist/[place] Neck: Supple Lungs: Decreased Breath Sounds Cardiovascular: Regular Rate, Regular Rhythm GI/Abdominal Exam: Normal Bowel Sounds, Soft, Non-Tender, No Organomegaly, No Distention, No Abnormal Bruit, No Mass, Pelvis Stable (Male) Exam: Other (Simpson catheter) Back Exam: Other (Sacral decubitus ulcer) Extremities: Pedal Edema Skin: Warm, Dry, Other (Sacral) Neurological: No New Focal Deficit - Problem List & Annotations (1) Anemia SNOMED Code(s): 472267568 Code(s): D64.9 - ANEMIA, UNSPECIFIED Status: Acute Priority: Medium Current Visit: No Onset Date: 08/17/17 Qualifiers: Anemia type: iron deficiency Iron deficiency anemia type: unspecified iron deficiency Qualified Code(s): D50.9 - Iron deficiency anemia, unspecified Annotation/Comment:: Known history of iron deficiency anemia with macrocytosis today. TIBC panel, ferritin level, folic acid and vitamin B-12 levels with it of blood work.. Continue to observe for now. No evidence of acute GI bleed, etc. with anemia actually improved from previous hospitalization. (2) Decubital ulcer SNOMED Code(s): 025672903 Code(s): L89.90 - PRESSURE ULCER OF UNSPECIFIED SITE, UNSPECIFIED STAGE Status: Acute Priority: Medium Current Visit: No Qualifiers: Pressure injury location: sacral region Pressure injury stage: unspecified pressure injury stage Qualified Code(s): L89.159 - Pressure ulcer of sacral region, unspecified stage Annotation/Comment:: Nursing wound care initiated. Simpson placed to help keep patient dry as he was noted to constantly be incontinent of urine. Will need continued vigilant wound care at longterm to help address this once discharged. Wound care continue wound care (3) Pneumonia SNOMED Code(s): 557770304 Code(s): J18.9 - PNEUMONIA, UNSPECIFIED ORGANISM Status: Acute Priority: High Current Visit: No Onset Date: 07/19/18 Qualifiers: Pneumonia type: aspiration pneumonia Aspiration pneumonia type: unspecified Laterality: left Lung location: unspecified part of lung Qualified Code(s): J69.0 - Pneumonitis due to inhalation of food and vomit Annotation/Comment:: Patient doing well we'll recheck labs tomorrow and chest x- ray - Problem List Review Problem List Initiated/Reviewed/Updated: Yes - My Orders Last 24 Hours: My Active Orders 10/07/18 Dinner Regular Diet [DIET] 10/08/18 08:00 Furosemide [Lasix] 40 mg IVPUSH DAILY 10/08/18 12:17 Sodium Chloride 0.45% 1,000 ml IV ASDIRECTED 10/08/18 12:30 CBC WITH AUTO DIFF [HEME] AM 10/09/18 05:11 Chest 1V Frontal [CR] Stat CMP [COMPREHENSIVE METABOLIC PN,CMP] [CHEM] Routine
[2018-10-08] MEDS: Donepezil 10 MG Tab PO SCH (20:03)
[2018-10-08] MEDS: Melatonin 3 MG Tab PO SCH (20:04)
[2018-10-08] MEDS: Polyethylene Glycol 3350 Powder 17 GM Packet PO SCH (20:04)
[2018-10-08] MEDS: atorvaSTATin 40 MG Tab PO SCH (20:04)
[2018-10-09] MEDS: Albuterol/Ipratropium 3.0-0.5 MG/3 ML Neb Soln NEB SCH ×4 (01:29→19:55)
[2018-10-09] MEDS: Piperacillin/Tazobactam 3.375 GM in Sodium Chloride 0.9% 100 ML IV SCH ×4 (01:29→19:56)
[2018-10-09] MEDS: Sodium Chloride 0.9% 10 ML Syringe FLUSH PRN (01:29)
[2018-10-09] MEDS: Sodium Chloride 0.45% 1,000 ML IV SCH ×3 (05:07→23:52)
[2018-10-09] MEDS: Furosemide 40 MG/4 ML VIAL IVPUSH SCH (08:29)
[2018-10-09] MEDS: lamoTRIgine 100 MG Tab PO SCH ×2 (08:31→17:43)
[2018-10-09] MEDS: Carvedilol 6.25 MG Tab PO SCH ×2 (08:31→17:36)
[2018-10-09] MEDS: Cholecalciferol (Vitamin D3) 1,000 Unit Tab PO SCH (08:32)
[2018-10-09] MEDS: LORazepam 1 MG Tab PO SCH ×4 (08:32→19:56)
[2018-10-09] MEDS: Clopidogrel 75 MG Tab PO SCH (08:32)
[2018-10-09] MEDS: Ferrous Sulfate 325 MG Tab PO SCH ×2 (08:33→17:36)
[2018-10-09] MEDS: Loratadine 10 MG Tab PO SCH (08:33)
[2018-10-09] MEDS: Dextromethorphan/guaiFENesin 600-30 MG Tab.ER PO SCH ×2 (08:33→17:36)
[2018-10-09] MEDS: Levothyroxine 25 MCG Tab PO SCH (08:33)
[2018-10-09] MEDS: Aspirin 81 MG Tab.Chew PO SCH (08:34)
[2018-10-09] MEDS: Budesonide 0.5 MG/2 ML Neb Susp NEB SCH ×2 (08:34→19:55)
[2018-10-09] MEDS: Enoxaparin 30 MG/0.3 ML Syringe SUBCUT SCH (08:34)
[2018-10-09] MEDS: amLODIPine 5 MG Tab PO SCH (08:34)
[2018-10-09] MEDS: Docusate Sodium 100 MG Cap PO SCH ×2 (08:35→17:37)
[2018-10-09] MEDS: Sodium Chloride 0.9% 10 ML Syringe FLUSH SCH ×2 (08:38→19:55)
[2018-10-09] MEDS: Fluticasone Propionate Nasal Spray 16 GM Bottle NASBOTH SCH ×2 (10:20→16:43)
--- NOTE | 2018-10-09 11:33 | PCM.PN ---
- General Info Date of Service: 10/09/18 - Review of Systems General: Reports: Weakness HEENT: Reports: No Symptoms Pulmonary: Reports: Shortness of Breath, Cough Cardiovascular: Reports: No Symptoms Gastrointestinal: Reports: No Symptoms Genitourinary: Reports: No Symptoms Musculoskeletal: Reports: No Symptoms Skin: Reports: No Symptoms Neurological: Reports: Pre-Existing Deficit Psychiatric: Reports: No Symptoms - Patient Data Vitals - Most Recent: Last Vital Signs Temp 98.4 F 10/09/18 08:00 Pulse 55 L 10/09/18 08:31 Resp 16 10/09/18 08:00 BP 180/59 H 10/09/18 08:34 Pulse Ox 97 10/09/18 08:00 Weight - Most Recent: 234 lb 0.013 oz I&O - Last 24 Hours: Intake & Output 10/08/18 10/09/18 10/09/18 22:59 06:59 14:59 Intake Total 3390 1490 2520 Output Total 1500 900 Balance 9098 880 1261 Lab Results Last 24 Hours: Laboratory Results - last 24 hr 10/09/18 10/09/18 10/09/18 Range/Units 08:05 08:05 08:05 WBC 9.2 (4.0-10.2) K/uL RBC 3.55 L (4.33-5.41) M/uL Hgb 10.4 L (13.1-16.8) g/dL Hct 33.2 L (39.0-49.0) % MCV 93.5 D (84.0-98.0) fL MCH 29.3 (28.2-33.3) pg MCHC 31.3 L (31.7-36.0) g/dL RDW 13.9 (11.2-14.1) % Plt Count 162 (150-350) K/uL Neut % (Auto) 66.4 (45.0-80.0) % Lymph % (Auto) 18.7 (10.0-50.0) % [place] % (Auto) 9.8 (2.0-14.0) % Eos % (Auto) 4.9 (0.0-5.0) % Baso % (Auto) 0.2 (0.0-2.0) % Neut # (Auto) 6.13 (1.40-7.00) K/uL Lymph # (Auto) 1.73 (0.50-3.50) K/uL [place] # (Auto) 0.90 (0.00-1.00) K/uL Eos # (Auto) 0.45 (0.00-0.50) K/uL Baso # (Auto) 0.02 (0.00-0.20) K/uL Sodium 148 H (136-145) mmol/L Potassium 3.2 L (3.5-5.1) mmol/L Chloride 111 H (98-107) mmol/L Carbon Dioxide 26.1 (21.0-32.0) mmol/L BUN 46 H (7-18) mg/dL Creatinine 1.81 H (0.51-1.17) mg/dL Est Cr Clr Drug Dosing 35.94 mL/min Estimated GFR (MDRD) 37 mL/min Glucose 121 H (74-106) mg/dL Calcium 8.9 (8.5-10.1) mg/dL Total Bilirubin 0.2 (0.2-1.0) mg/dL AST 20 (15-37) U/L ALT 19 (12-78) U/L Alkaline Phosphatase 91 (46-116) IU/L Total Protein 6.3 L (6.4-8.2) g/dL Albumin 2.8 L (3.4-5.0) g/dL Vancomycin Trough 12.8 (10-20) ug/mL Eusebio Results Last 24 Hours: Microbiology 10/07/18 03:20 Aerobic Blood Culture - Preliminary Blood - Venous NO GROWTH AFTER 2 DAYS Anaerobic Blood Culture - Preliminary NO GROWTH AFTER 2 DAYS 10/07/18 03:26 Aerobic Blood Culture - Preliminary Blood - Venous - Lab Draw NO GROWTH AFTER 2 DAYS Anaerobic Blood Culture - Preliminary NO GROWTH AFTER 2 DAYS 10/07/18 03:36 Quick Strep Confirmation Culture - Final Throat NO GROUP A STREP ISOLATED Group A Streptococcus Rapid Screen - Final NEGATIVE STREP A SCREEN 10/07/18 04:22 Urine Culture - Preliminary Urine, Clean Catch NO GROWTH AFTER 1 DAY Med Orders - Current: Current Medications Acetaminophen (Tylenol) 650 mg PO Q4H PRN PRN Reason: Pain/Fever Albuterol (Proventil Neb Soln) 2.5 mg NEB Q2H PRN PRN Reason: Dyspnea Albuterol/Ipratropium (Duoneb 3.0-0.5 Mg/3 Ml) 3 ml NEB Q4HRRT PRN PRN Reason: Dyspnea Albuterol/Ipratropium (Duoneb 3.0-0.5 Mg/3 Ml) 3 ml NEB Q6HRRT [facility] Last Admin: 10/09/18 08:34 Dose: 3 ml Amlodipine Besylate (Norvasc) 10 mg PO DAILY [facility] [place] Last Admin: 10/09/18 08:34 Dose: 10 mg Aspirin (Aspirin) 81 mg PO DAILY [facility] [place] Last Admin: 10/09/18 08:34 Dose: 81 mg Atorvastatin Calcium (Lipitor) 40 mg PO BEDTIME [facility] [place] Last Admin: 10/08/18 20:04 Dose: 40 mg Bisacodyl (Dulcolax) 10 mg RECTAL DAILY PRN PRN Reason: Constipation Bisacodyl (Dulcolax) 10 mg PO DAILY PRN PRN Reason: Constipation Budesonide (Pulmicort) 0.5 mg NEB BIDRT [facility] [place] Last Admin: 10/09/18 08:34 Dose: 0.5 mg Carvedilol (Coreg) 6.25 mg PO BIDMEALS [facility] [place] Last Admin: 10/09/18 08:31 Dose: 6.25 mg Cholecalciferol (Vitamin D3) 5,000 units PO DAILY [facility] [place] Last Admin: 10/09/18 08:32 Dose: 5,000 units Clopidogrel Bisulfate (Plavix) 75 mg PO DAILY [facility] Last Admin: 10/09/18 08:32 Dose: 75 mg Docusate Sodium (Colace) 100 mg PO BID [facility] Last Admin: 10/09/18 08:35 Dose: Not Given Donepezil HCl (Aricept) 20 mg PO BEDTIME [facility] [place] Last Admin: 10/08/18 20:03 Dose: 20 mg Enoxaparin Sodium (Lovenox) 30 mg SUBCUT Q24H [facility] Last Admin: 10/09/18 08:34 Dose: 30 mg Ferrous Sulfate (Ferrous Sulfate) 325 mg PO BID [facility] Last Admin: 10/09/18 08:33 Dose: 325 mg Fluticasone Propionate (Flonase) 0 gm NASBOTH BID@1000,1600 [facility] Last Admin: 10/09/18 10:20 Dose: 2 spray Furosemide (Lasix) 40 mg IVPUSH DAILY [facility] [place] Last Admin: 10/09/18 08:29 Dose: 40 mg Guaifenesin/Dextromethorphan (Mucinex Dm Er 600-30 Mg) 1 tab PO BID [facility] [place] Last Admin: 10/09/18 08:33 Dose: 1 tab Piperacillin Sod/Tazobactam (Sod 3.375 gm/ Sodium Chloride) 100 mls @ 200 mls/ hr IV Q6H [facility] [place] Last Admin: 10/09/18 08:29 Dose: 200 mls/hr Vancomycin HCl 1 gm/ Sodium (Chloride) 250 mls @ 165 mls/hr IV Q24H [facility] [place] Last Admin: 10/09/18 10:19 Dose: 165 mls/hr Sodium Chloride (Sodium Chloride 0.45%) 1,000 mls @ 125 mls/hr IV ASDIRECTED [facility] [place] Last Admin: 10/09/18 05:07 Dose: 125 mls/hr Lamotrigine (Lamotrigine) 250 mg PO BID [facility] [place] Last Admin: 10/09/18 08:31 Dose: 250 mg Levothyroxine Sodium (Levothyroxine) 25 mcg PO DAILY@0730 [facility] [place] Last Admin: 10/09/18 08:33 Dose: 25 mcg Loperamide HCl (Imodium Ad) 2 mg PO ASDIRECTED PRN PRN Reason: Diarrhea Last Admin: 10/09/18 10:19 Dose: 2 mg Loratadine (Claritin) 10 mg PO DAILY [facility] [place] Last Admin: 10/09/18 08:33 Dose: 10 mg Lorazepam (Ativan) 1 mg PO QID [facility] Last Admin: 10/09/18 08:32 Dose: 1 mg Melatonin (Melatonin) 6 mg PO BEDTIME [facility] [place] Last Admin: 10/08/18 20:04 Dose: 6 mg Nitroglycerin (Nitrostat) 0.4 mg SL ASDIRECTED PRN PRN Reason: Chest Pain Non-Formulary Medication (Ipratropium [Atrovent 0.06% Nasal [place]]) 2 sprays INH TID [facility] Polyethylene Glycol (Miralax) 17 gm PO BEDTIME [facility] [place] Last Admin: 10/08/18 20:04 Dose: 17 gm Senna/Docusate Sodium (Senna Plus) 2 tab PO BID [facility] [place] Last Admin: 10/09/18 08:35 Dose: Not Given Sodium Chloride (Saline Flush) 10 ml FLUSH ASDIRECTED PRN PRN Reason: Keep Vein Open Last Admin: 10/09/18 01:29 Dose: 10 ml Sodium Chloride (Saline Flush) 10 ml FLUSH Q12H [facility] [place] Last Admin: 10/09/18 08:38 Dose: 10 ml Vancomycin HCl (Pharmacy To Dose - Vancomycin) 1 dose .XX ASDIRECTED [facility] Discontinued Medications Furosemide (Lasix) 40 mg IVPUSH Q12H [facility] [place] Last Admin: 10/07/18 09:04 Dose: 40 mg Sodium Chloride (Sodium Chloride 0.45%) 1,000 mls @ 100 mls/hr IV ASDIRECTED [facility] [place] Last Admin: 10/07/18 09:03 Dose: 100 mls/hr Sodium Chloride (Sodium Chloride 0.45%) 1,000 mls @ 250 mls/hr IV ASDIRECTED [facility] Last Admin: 10/08/18 08:26 Dose: 250 mls/hr Lisinopril (Prinivil) 10 mg PO QPM [facility] Memantine (Namenda) 10 mg PO BID [facility] Metformin HCl (Glucophage) 500 mg PO BIDMEALS [facility] [place] Last Admin: 10/07/18 10:39 Dose: Not Given Non-Formulary Medication (Gabapentin) 600 mg PO TID [facility] Non-Formulary Medication (Sertraline [Zoloft]) 200 mg PO DAILY [facility] - Exam General: Alert, Cooperative HEENT: Pupils Equal, Pupils Reactive, EOMI, Mucous Membr. Moist/[place] Neck: Supple Lungs: Decreased Breath Sounds (bilateral ). No: Rales, Rhonchi, Wheezing Cardiovascular: Regular Rate, Regular Rhythm GI/Abdominal Exam: Normal Bowel Sounds, Soft, Non-Tender, No Organomegaly, No Distention, No Abnormal Bruit, No Mass, Pelvis Stable (Male) Exam: Deferred Back Exam: Normal Inspection, Full Range of Motion Extremities: Pedal Edema (trace ) Skin: Warm, Dry, Intact Neurological: No New Focal Deficit Psy/Mental Status: Alert, Normal Mood - Problem List & Annotations (1) Anemia SNOMED Code(s): 975901131 Code(s): D64.9 - ANEMIA, UNSPECIFIED Status: Acute Priority: Medium Current Visit: No Onset Date: 08/17/17 Qualifiers: Anemia type: iron deficiency Iron deficiency anemia type: unspecified iron deficiency Qualified Code(s): D50.9 - Iron deficiency anemia, unspecified Annotation/Comment:: Today 10.4 stable (2) Decubital ulcer SNOMED Code(s): 945411161 Code(s): L89.90 - PRESSURE ULCER OF UNSPECIFIED SITE, UNSPECIFIED STAGE Status: Acute Priority: Medium Current Visit: No Qualifiers: Pressure injury location: sacral region Pressure injury stage: unspecified pressure injury stage Qualified Code(s): L89.159 - Pressure ulcer of sacral region, unspecified stage Annotation/Comment:: continue wound care; hospice consulted (3) Pneumonia SNOMED Code(s): 899326547 Code(s): J18.9 - PNEUMONIA, UNSPECIFIED ORGANISM Status: Acute Priority: High Current Visit: No Onset Date: 07/19/18 Qualifiers: Pneumonia type: aspiration pneumonia Aspiration pneumonia type: unspecified Laterality: left Lung location: unspecified part of lung Qualified Code(s): J69.0 - Pneumonitis due to inhalation of food and vomit Annotation/Comment:: improving, continue antibiotics, labs and x ray in AM; will consider hospice and transfer back to [facility] care tomorrow. - Problem List Review Problem List Initiated/Reviewed/Updated: Yes - My Orders Last 24 Hours: My Active Orders 10/08/18 12:17 Sodium Chloride 0.45% 1,000 ml IV ASDIRECTED 10/09/18 05:11 Chest 1V Frontal [CR] Stat 10/09/18 09:40 C DIFFICILE TOXIN BY PCR [MREF] Stat 10/09/18 11:29 Consult to Case Management/Poker Dealer [CONS] Routine Consult to Hospice [CONS] Routine 10/10/18 05:11 Chest 2V [CR] Routine CBC WITH AUTO DIFF [HEME] AM CMP [COMPREHENSIVE METABOLIC PN,CMP] [CHEM] Routine
[2018-10-09] MEDS: Melatonin 3 MG Tab PO SCH (19:56)
[2018-10-09] MEDS: Donepezil 10 MG Tab PO SCH (19:56)
[2018-10-09] MEDS: atorvaSTATin 40 MG Tab PO SCH (19:56)
[2018-10-09] MEDS: Polyethylene Glycol 3350 Powder 17 GM Packet PO SCH (19:57)
[2018-10-10] MEDS: Piperacillin/Tazobactam 3.375 GM in Sodium Chloride 0.9% 100 ML IV SCH ×2 (01:28→07:39)
[2018-10-10] MEDS: Albuterol/Ipratropium 3.0-0.5 MG/3 ML Neb Soln NEB SCH ×2 (01:29→07:47)
[2018-10-10] MEDS: Sodium Chloride 0.9% 10 ML Syringe FLUSH PRN (01:29)
[2018-10-10] MEDS: Enoxaparin 30 MG/0.3 ML Syringe SUBCUT SCH (07:46)
[2018-10-10] MEDS: lamoTRIgine 100 MG Tab PO SCH (07:46)
[2018-10-10] MEDS: LORazepam 1 MG Tab PO SCH ×2 (07:47→11:56)
[2018-10-10] MEDS: Ferrous Sulfate 325 MG Tab PO SCH (07:48)
[2018-10-10] MEDS: Clopidogrel 75 MG Tab PO SCH (07:48)
[2018-10-10] MEDS: Cholecalciferol (Vitamin D3) 1,000 Unit Tab PO SCH (07:52)
[2018-10-10] MEDS: Loratadine 10 MG Tab PO SCH (07:53)
[2018-10-10] MEDS: Levothyroxine 25 MCG Tab PO SCH (07:54)
[2018-10-10] MEDS: amLODIPine 5 MG Tab PO SCH (07:55)
[2018-10-10] MEDS: Aspirin 81 MG Tab.Chew PO SCH (07:56)
[2018-10-10] MEDS: Carvedilol 6.25 MG Tab PO SCH (07:56)
[2018-10-10] MEDS: Dextromethorphan/guaiFENesin 600-30 MG Tab.ER PO SCH (07:57)
[2018-10-10] MEDS: Furosemide 40 MG/4 ML VIAL IVPUSH SCH (07:57)
[2018-10-10] MEDS: Budesonide 0.5 MG/2 ML Neb Susp NEB SCH (07:57)
[2018-10-10 08:01] VITALS: BP 169/52
[2018-10-10] MEDS: Sodium Chloride 0.9% 10 ML Syringe FLUSH SCH (08:36)
[2018-10-10] MEDS: Docusate Sodium 100 MG Cap PO SCH (08:36)
[2018-10-10] MEDS: Fluticasone Propionate Nasal Spray 16 GM Bottle NASBOTH SCH (09:38)
--- NOTE | 2018-10-10 12:30 | PCM.DCSUM1 ---
Discharge Summary - Hospital Course Free Text/Narrative:: Patient admitted secondary to pneumonia was started on antibiotic has shown significant improvement and is back to his usual self after a long discussion with she would like to [facility] which we agree at this time we'll discharge him and send him home with hospice Diagnosis: Stroke: No - Discharge Data Discharge Date: 10/10/18 Discharge Disposition: DC/Tfer to SNF 03 Condition: Fair - Discharge Diagnosis/Problem(s) (1) Anemia SNOMED Code(s): 659128093 ICD Code: D64.9 - ANEMIA, UNSPECIFIED Status: Acute Priority: Medium Current Visit: No Onset Date: 08/17/17 Problem Details: Today 10.8 stable Qualifiers: Anemia type: iron deficiency Iron deficiency anemia type: unspecified iron deficiency Qualified Code(s): D50.9 - Iron deficiency anemia, unspecified (2) Decubital ulcer SNOMED Code(s): 176918692 ICD Code: L89.90 - PRESSURE ULCER OF UNSPECIFIED SITE, UNSPECIFIED STAGE Status: Acute Priority: Medium Current Visit: No Problem Details: continue wound care; hospice consulted---[facility]. Qualifiers: Pressure injury location: sacral region Pressure injury stage: unspecified pressure injury stage Qualified Code(s): L89.159 - Pressure ulcer of sacral region, unspecified stage (3) Pneumonia SNOMED Code(s): 655906627 ICD Code: J18.9 - PNEUMONIA, UNSPECIFIED ORGANISM Status: Acute Priority : High Current Visit: No Onset Date: 07/19/18 Problem Details: Patient doing better we'll transfer to [facility] Qualifiers: Pneumonia type: aspiration pneumonia Aspiration pneumonia type: unspecified Laterality: left Lung location: unspecified part of lung Qualified Code(s): J69.0 - Pneumonitis due to inhalation of food and vomit - Patient Summary/Data Consults: Consultations 10/09/18 11:29 Consult to Case Management/Clinical Ob [CONS] Routine Consult to Hospice [CONS] Routine - Patient Instructions Diet: Low Sodium, Drink 8-10+ Glasses/Day Driving: Do Not Drive Showering/Bathing: May Shower Wound/Incision Care: Change Dressing Daily - Discharge Plan *PRESCRIPTION DRUG MONITORING PROGRAM REVIEWED*: Not Applicable *COPY OF PRESCRIPTION DRUG MONITORING REPORT IN PATIENT VESNA: Not Applicable Prescriptions/Med Rec: Albuterol [Proventil Neb Soln] 2.5 mg NEB Q2H PRN #60 neb PRN Reason: Dyspnea Albuterol/Ipratropium [DuoNeb 3.0-0.5 MG/3 ML] 3 ml NEB Q4HRRT PRN #1 box PRN Reason: Dyspnea Albuterol/Ipratropium [DuoNeb 3.0-0.5 MG/3 ML] 3 ml NEB Q6HRRT #1 box Budesonide [Pulmicort] 0.5 mg NEB BIDRT #1 box Cefprozil [Cefzil] 500 mg PO Q12HR #14 tablet Dextromethorphan/guaiFENesin [Mucinex DM ER 600-30 MG] 1 tab PO BID #14 tab.er Home Medications: Home Meds Memantine HCl [Namenda] 10 mg PO BID 06/11/14 [History] Sennosides/Docusate Sodium [Senna-S] 2 tab PO BID 06/11/14 [History] amLODIPine [Norvasc] 10 mg PO DAILY 06/11/14 [History] lamoTRIgine [Lamictal] 250 mg PO BID 06/11/14 [History] metFORMIN [Glucophage] 500 mg PO BID 06/11/14 [History] Aspirin [Silver Chewable Aspirin] 81 mg PO DAILY 09/25/16 [History] Bisacodyl [Dulcolax] 10 mg PO DAILY PRN 09/25/16 [History] Cholecalciferol (Vitamin D3) [Vitamin D3] 5,000 unit PO DAILY 09/25/16 [History] Docusate Sodium [Colace] 100 mg PO BID 09/25/16 [History] Donepezil HCl 20 mg PO BEDTIME 09/25/16 [History] Fluticasone Propionate [Flonase] 2 spray NASBOTH BID@1000,1600 09/25/16 [History ] Gabapentin [Neurontin] 600 mg PO TID 09/25/16 [History] Levothyroxine Sodium [Synthroid] 25 mcg PO DAILY@0730 09/25/16 [History] Loratadine [Claritin] 10 mg PO DAILY 09/25/16 [History] Sertraline [Zoloft] 200 mg PO DAILY 09/25/16 [History] Triamcinolone Acetonide [Triamcinolone Acetonide 0.1% Crm] 1 applic TOP DAILY PRN 09/25/16 [History] traMADol HCl [Tramadol HCl] 100 mg PO BID@06,20 09/25/16 [History] Clopidogrel [Plavix] 75 mg PO DAILY 08/17/17 [History] Ferrous Sulfate 325 mg PO BID 08/17/17 [History] Melatonin 6 mg PO BEDTIME 08/17/17 [History] Nitroglycerin [Nitrostat] 0.4 mg SL ASDIRECTED PRN 08/17/17 [History] Pantoprazole Sodium [Protonix] 40 mg PO DAILY 08/17/17 [History] atorvaSTATin [Lipitor] 40 mg PO BEDTIME 08/17/17 [History] traMADol HCl [Tramadol HCl] 50 mg PO DAILY@12 08/17/17 [History] traMADol HCl [Tramadol HCl] 100 mg PO DAILY PRN 08/17/17 [History] Acetaminophen [Tylenol] 650 mg PO Q4H PRN tablet 08/20/17 [Rx] Carvedilol [Coreg] 6.25 mg PO BIDMEALS tablet 08/20/17 [Rx] Lisinopril [Prinivil] 10 mg PO QPM #20 tablet 08/20/17 [Rx] Furosemide [Lasix] 40 mg PO DAILY #30 tab 10/23/17 [Rx] Ipratropium [Atrovent 0.06% Nasal [place]] 2 sprays NASBOTH TID 07/19/18 [History] Polyethylene Glycol 3350 [MiraLAX] 17 gm PO BEDTIME 07/19/18 [History] Vit A/C/E/Zinc/Selenium/Copper [Vision Formula Tablet] 2 tab PO DAILY 07/19/18 [ History] Bisacodyl [Biscolax] 1 supp RECTAL ASDIRECTED PRN 10/07/18 [History] LORazepam [Ativan] 1 mg PO QID 10/07/18 [History] Loperamide HCl [Imodium A-D] 2 mg PO ASDIRECTED PRN MDD 8 tablets 10/07/18 [ History] LORazepam 1 mg PO DAILY PRN 10/09/18 [History] guaiFENesin [Robitussin] 200 mg PO Q4H PRN 10/09/18 [History] Albuterol [Proventil Neb Soln] 2.5 mg NEB Q2H PRN #60 neb 10/10/18 [Rx] Albuterol/Ipratropium [DuoNeb 3.0-0.5 MG/3 ML] 3 ml NEB Q4HRRT PRN #1 box [Rx] Albuterol/Ipratropium [DuoNeb 3.0-0.5 MG/3 ML] 3 ml NEB Q6HRRT #1 box 10/10/18 [ Rx] Budesonide [Pulmicort] 0.5 mg NEB BIDRT #1 box 10/10/18 [Rx] Cefprozil [Cefzil] 500 mg PO Q12HR #14 tablet 10/10/18 [Rx] Dextromethorphan/guaiFENesin [Mucinex DM ER 600-30 MG] 1 tab PO BID #14 tab.er 10/10/18 [Rx] Oxygen Therapy Mode: Room Air Patient Handouts: [facility] P[facility] Forms: ED Department Discharge Referrals: Mikael Subramanian MD [Primary Care Provider] - Isai Huber [Other] (W/ Hospice Care) - Discharge Summary/Plan Comment DC Time >30 min.: No Discharge Summary/Plan Comment: Plan is to [facility] him to [facility] resume all medications as ordered follow-up with primary - General Info Date of Service: 10/10/18 Functional Status: Reports: Tolerating Diet - Review of Systems General: Reports: Weakness HEENT: Reports: No Symptoms Pulmonary: Reports: Shortness of Breath, Cough Cardiovascular: Reports: No Symptoms Gastrointestinal: Reports: No Symptoms Genitourinary: Reports: Other (Patient has a Simpson catheter) Musculoskeletal: Reports: No Symptoms, Other (Generalized weakness) Skin: Reports: Other (Decubitus ulcer in the buttocks and) Neurological: Reports: Confusion (At time), Other (Patient software left sometimes difficulty understanding due to mumbling) Psychiatric: Reports: Confusion - Patient Data Vitals - Most Recent: Last Vital Signs Temp 98.4 F 10/10/18 08:00 Pulse 60 10/10/18 08:00 Resp 18 10/10/18 08:00 BP 169/52 H 10/10/18 08:00 Pulse Ox 98 10/10/18 08:00 Weight - Most Recent: 234 lb 0.013 oz I&O - Last 24 hours: Intake & Output 10/09/18 10/10/18 10/10/18 22:59 06:59 14:59 Intake Total 875 1570 Output Total 800 2500 Balance 75 -930 Lab Results - Last 24 hrs: Laboratory Results - last 24 hr 10/10/18 10/10/18 Range/Units 07:30 07:30 WBC 7.9 (4.0-10.2) K/uL RBC 3.57 L (4.33-5.41) M/uL Hgb 10.8 L (13.1-16.8) g/dL Hct 32.7 L (39.0-49.0) % MCV 91.6 (84.0-98.0) fL MCH 30.3 (28.2-33.3) pg MCHC 33.0 (31.7-36.0) g/dL RDW 13.8 (11.2-14.1) % Plt Count 174 (150-350) K/uL Neut % (Auto) 64.3 (45.0-80.0) % Lymph % (Auto) 19.8 (10.0-50.0) % [place] % (Auto) 10.3 (2.0-14.0) % Eos % (Auto) 5.3 H (0.0-5.0) % Baso % (Auto) 0.3 (0.0-2.0) % Neut # (Auto) 5.10 (1.40-7.00) K/uL Lymph # (Auto) 1.57 (0.50-3.50) K/uL [place] # (Auto) 0.82 (0.00-1.00) K/uL Eos # (Auto) 0.42 (0.00-0.50) K/uL Baso # (Auto) 0.02 (0.00-0.20) K/uL Sodium 147 H (136-145) mmol/L Potassium 3.1 L (3.5-5.1) mmol/L Chloride 109 H (98-107) mmol/L Carbon Dioxide 27.0 (21.0-32.0) mmol/L BUN 25 H (7-18) mg/dL Creatinine 1.49 H (0.51-1.17) mg/dL Est Cr Clr Drug Dosing 43.66 mL/min Estimated GFR (MDRD) 46 mL/min Glucose 118 H (74-106) mg/dL Calcium 8.9 (8.5-10.1) mg/dL Total Bilirubin 0.3 (0.2-1.0) mg/dL AST 17 (15-37) U/L ALT 22 (12-78) U/L Alkaline Phosphatase 83 (46-116) IU/L Total Protein 6.3 L (6.4-8.2) g/dL Albumin 2.8 L (3.4-5.0) g/dL DENISE Results - Last 24 hrs: Microbiology 10/07/18 04:22 Urine Culture - Final Urine, Clean Catch NO GROWTH AFTER 2 DAYS 10/07/18 03:20 Aerobic Blood Culture - Preliminary Blood - Venous NO GROWTH AFTER 3 DAYS Anaerobic Blood Culture - Preliminary NO GROWTH AFTER 3 DAYS 10/07/18 03:26 Aerobic Blood Culture - Preliminary Blood - Venous - Lab Draw NO GROWTH AFTER 3 DAYS Anaerobic Blood Culture - Preliminary NO GROWTH AFTER 3 DAYS Med Orders - Current: Current Medications Acetaminophen (Tylenol) 650 mg PO Q4H PRN PRN Reason: Pain/Fever Albuterol (Proventil Neb Soln) 2.5 mg NEB Q2H PRN PRN Reason: Dyspnea Albuterol/Ipratropium (Duoneb 3.0-0.5 Mg/3 Ml) 3 ml NEB Q4HRRT PRN PRN Reason: Dyspnea Albuterol/Ipratropium (Duoneb 3.0-0.5 Mg/3 Ml) 3 ml NEB Q6HRRT [facility] Last Admin: 10/10/18 07:47 Dose: 3 ml Amlodipine Besylate (Norvasc) 10 mg PO DAILY [facility] Last Admin: 10/10/18 07:55 Dose: 10 mg Aspirin (Aspirin) 81 mg PO DAILY [facility] Last Admin: 10/10/18 07:56 Dose: 81 mg Atorvastatin Calcium (Lipitor) 40 mg PO BEDTIME [facility] Last Admin: 10/09/18 19:56 Dose: 40 mg Bisacodyl (Dulcolax) 10 mg RECTAL DAILY PRN PRN Reason: Constipation Bisacodyl (Dulcolax) 10 mg PO DAILY PRN PRN Reason: Constipation Budesonide (Pulmicort) 0.5 mg NEB BIDRT [facility] Last Admin: 10/10/18 07:57 Dose: 0.5 mg Carvedilol (Coreg) 6.25 mg PO BIDMEALS [facility] Last Admin: 10/10/18 07:56 Dose: 6.25 mg Cholecalciferol (Vitamin D3) 5,000 units PO DAILY [facility] Last Admin: 10/10/18 07:52 Dose: 5,000 units Clopidogrel Bisulfate (Plavix) 75 mg PO DAILY [facility] Last Admin: 10/10/18 07:48 Dose: 75 mg Docusate Sodium (Colace) 100 mg PO BID [facility] Last Admin: 10/10/18 08:36 Dose: Not Given Donepezil HCl (Aricept) 20 mg PO BEDTIME [facility] Last Admin: 10/09/18 19:56 Dose: 20 mg Enoxaparin Sodium (Lovenox) 30 mg SUBCUT Q24H [facility] Last Admin: 10/10/18 07:46 Dose: 30 mg Ferrous Sulfate (Ferrous Sulfate) 325 mg PO BID [facility] Last Admin: 10/10/18 07:48 Dose: 325 mg Fluticasone Propionate (Flonase) 0 gm NASBOTH BID@1000,1600 [facility] Last Admin: 10/10/18 09:38 Dose: 2 spray Furosemide (Lasix) 40 mg IVPUSH DAILY [facility] Last Admin: 10/10/18 07:57 Dose: 40 mg Guaifenesin/Dextromethorphan (Mucinex Dm Er 600-30 Mg) 1 tab PO BID [facility] Last Admin: 10/10/18 07:57 Dose: 1 tab Piperacillin Sod/Tazobactam (Sod 3.375 gm/ Sodium Chloride) 100 mls @ 200 mls/ hr IV Q6H [facility] Last Admin: 10/10/18 07:39 Dose: 200 mls/hr Vancomycin HCl 1 gm/ Sodium (Chloride) 250 mls @ 165 mls/hr IV Q24H [facility] Last Admin: 10/10/18 08:35 Dose: 165 mls/hr Sodium Chloride (Sodium Chloride 0.45%) 1,000 mls @ 125 mls/hr IV ASDIRECTED [facility] Last Admin: 10/09/18 23:52 Dose: 125 mls/hr Lamotrigine (Lamotrigine) 250 mg PO BID [facility] Last Admin: 10/10/18 07:46 Dose: 250 mg Levothyroxine Sodium (Levothyroxine) 25 mcg PO DAILY@0730 [facility] Last Admin: 10/10/18 07:54 Dose: 25 mcg Loperamide HCl (Imodium Ad) 2 mg PO ASDIRECTED PRN PRN Reason: Diarrhea Last Admin: 10/09/18 10:19 Dose: 2 mg Loratadine (Claritin) 10 mg PO DAILY [facility] Last Admin: 10/10/18 07:53 Dose: 10 mg Lorazepam (Ativan) 1 mg PO QID [facility] Last Admin: 10/10/18 11:56 Dose: 1 mg Melatonin (Melatonin) 6 mg PO BEDTIME [facility] Last Admin: 10/09/18 19:56 Dose: 6 mg Nitroglycerin (Nitrostat) 0.4 mg SL ASDIRECTED PRN PRN Reason: Chest Pain Non-Formulary Medication (Ipratropium [Atrovent 0.06% Nasal [place]]) 2 sprays INH TID [facility] Polyethylene Glycol (Miralax) 17 gm PO BEDTIME [facility] Last Admin: 10/09/18 19:57 Dose: 17 gm Senna/Docusate Sodium (Senna Plus) 2 tab PO BID [facility] Last Admin: 10/10/18 08:00 Dose: Not Given Sodium Chloride (Saline Flush) 10 ml FLUSH ASDIRECTED PRN PRN Reason: Keep Vein Open Last Admin: 10/10/18 01:29 Dose: 10 ml Sodium Chloride (Saline Flush) 10 ml FLUSH Q12H [facility] Last Admin: 10/10/18 08:36 Dose: 10 ml Vancomycin HCl (Pharmacy To Dose - Vancomycin) 1 dose .XX ASDIRECTED [facility] Discontinued Medications Furosemide (Lasix) 40 mg IVPUSH Q12H [facility] Last Admin: 10/07/18 09:04 Dose: 40 mg Sodium Chloride (Sodium Chloride 0.45%) 1,000 mls @ 100 mls/hr IV ASDIRECTED [facility] Last Admin: 10/07/18 09:03 Dose: 100 mls/hr Sodium Chloride (Sodium Chloride 0.45%) 1,000 mls @ 250 mls/hr IV ASDIRECTED [facility] Last Admin: 10/08/18 08:26 Dose: 250 mls/hr Lisinopril (Prinivil) 10 mg PO QPM [facility] Memantine (Namenda) 10 mg PO BID [facility] Metformin HCl (Glucophage) 500 mg PO BIDMEALS [facility] Last Admin: 10/07/18 10:39 Dose: Not Given Non-Formulary Medication (Gabapentin) 600 mg PO TID [facility] Non-Formulary Medication (Sertraline [Zoloft]) 200 mg PO DAILY MILY - Exam General: Reports: Alert, Cooperative HEENT: Reports: Pupils Equal, Pupils Reactive, EOMI, Mucous Membr. Moist/[place] Neck: Reports: Supple Lungs: Reports: Clear to Auscultation, Normal Respiratory Effort Cardiovascular: Reports: Regular Rate, Regular Rhythm GI/Abdominal Exam: Normal Bowel Sounds, Soft, Non-Tender, No Organomegaly, No Distention, No Abnormal Bruit, No Mass, Pelvis Stable (Male) Exam: Deferred Rectal (Males) Exam: Deferred Back Exam: Reports: Normal Inspection, Full Range of Motion Extremities: Normal Inspection Skin: Reports: Warm, Dry Wound/Incisions: Reports: Decubitis Neurological: Reports: No New Focal Deficit Psy/Mental Status: Reports: Normal Affect, Normal Mood
[2018-10-10] MEDS ORDERED: Triamcinolone Acetonide 0.1% Crm 15 GM Tube TOP PRN (12:36)
[2018-10-10] MEDS ORDERED: LORazepam 1 MG Tab PO PRN (12:36)
[2018-10-10] MEDS ORDERED: Albuterol/Ipratropium 3.0-0.5 MG/3 ML Neb Soln NEB PRN (13:00)
[2018-10-10] MEDS ORDERED: guaiFENesin 100 MG/5 ML Soln 10 ML UD Cup PO PRN (13:00)
[2018-10-10] MEDS ORDERED: Acetaminophen 325 MG Tab PO PRN (13:00)
[2018-10-11] MEDS ORDERED: Furosemide 40 MG Tab PO SCH (08:00)
[2018-10-11] MEDS ORDERED: Pantoprazole 40 MG Tab.CR PO SCH (08:00)
== END 2018-10-10 14:23 | DRG 178 ==
LOC: LL.ED 02:35 → LL.MS 04:22
PROVIDERS: ADMIT Family Medicine; ATTEND Family Medicine
DX: J69.0 Pneumonitis due to inhalation of food and vomit (principal); I42.9 Cardiomyopathy, unspecified; I13.0 Hypertensive heart and chronic kidney disease with heart failure and stage 1 through stage 4 chronic kidney disease, or unspecified chronic kidney disease; E87.0 Hyperosmolality and hypernatremia; N17.9 Acute kidney failure, unspecified; J44.9 Chronic obstructive pulmonary disease, unspecified; I25.10 Atherosclerotic heart disease of native coronary artery without angina pectoris; E11.22 Type 2 diabetes mellitus with diabetic chronic kidney disease; N18.3 Chronic kidney disease, stage 3 (moderate); H54.7 Unspecified visual loss; I50.9 Heart failure, unspecified; H35.30 Unspecified macular degeneration; R79.89 Other specified abnormal findings of blood chemistry; L89.159 Pressure ulcer of sacral region, unspecified stage; K21.9 Gastro-esophageal reflux disease without esophagitis; D50.9 Iron deficiency anemia, unspecified; E87.5 Hyperkalemia; Z51.5 Encounter for palliative care; Z66 Do not resuscitate; E87.8 Other disorders of electrolyte and fluid balance, not elsewhere classified; E88.09 Other disorders of plasma-protein metabolism, not elsewhere classified; K59.09 Other constipation; E86.0 Dehydration; N40.0 Benign prostatic hyperplasia without lower urinary tract symptoms; F41.8 Other specified anxiety disorders; M15.0 Primary generalized (osteo)arthritis; G89.29 Other chronic pain; M54.9 Dorsalgia, unspecified; G30.9 Alzheimer's disease, unspecified; F02.80 Dementia in other diseases classified elsewhere, unspecified severity, without behavioral disturbance, psychotic disturbance, mood disturbance, and anxiety; G62.9 Polyneuropathy, unspecified; M41.9 Scoliosis, unspecified; M48.02 Spinal stenosis, cervical region; E03.9 Hypothyroidism, unspecified; I25.2 Old myocardial infarction; Z85.828 Personal history of other malignant neoplasm of skin; Z79.899 Other long term (current) drug therapy; Z79.82 Long term (current) use of aspirin; Z79.84 Long term (current) use of oral hypoglycemic drugs; Z79.02 Long term (current) use of antithrombotics/antiplatelets; Z87.891 Personal history of nicotine dependence; Z88.8 Allergy status to other drugs, medicaments and biological substances; Z86.73 Personal history of transient ischemic attack (TIA), and cerebral infarction without residual deficits
CPT/HCPCS: 36415; 71045; 80048; 80053; 80202; 81001; 82550; 82553; 82607; 82728; 82746; 83540; 83550; 83605; 83735; 83880; 84443; 84484; 85025; 85379; 85610; 85730; 87040; 87081; 87086; 87430; 87493; 87641; 87804; 93005; 94640; 99285; A9270-GY; J1650; J1940; J2543; J3370; J7030; J7050; J7620-GY